=== PATIENT | female | born 1965 | race Caucasian/White ===

== ENCOUNTER 2016-08-23 17:16 | Inpatient (IN) | payer OTHER ==
[2016-08-23] MEDS ORDERED: HYDROmorphone 1 MG/ML SYRINGE IVP STA ×2 (17:39→19:15)
[2016-08-23] MEDS ORDERED: ONDANSETRON 4 MG/2 ML VIAL IVP STA (17:39)
[2016-08-23] MEDS ORDERED: SODIUM CHLORIDE 0.9% 1,000 ML IV ONE (17:39)
[2016-08-23] MEDS ORDERED: ONDANSETRON 4 MG/2 ML VIAL ONE (17:42)
[2016-08-23] MEDS ORDERED: HYDROmorphone 1 MG/ML SYRINGE ONE ×2 (17:42→19:46)
[2016-08-23 17:49] LABS: BASOPHILS # (AUTO) 0.2 10^3/uL (0.0-0.1); BASOPHILS % (AUTO) 1.3 %; EOSINOPHILS # (AUTO) 0.1 10^3/uL (0.0-0.7); EOSINOPHILS % (AUTO) 1.1 %; HCT - HEMATOCRIT 45.3 % (37.0-47.0); HGB - HEMOGLOBIN 14.9 g/dL (12.0-16.0); LYMPHOCYTES # (AUTO) 3.1 10^3/uL (1.5-3.5); LYMPHOCYTES % (AUTO) 26.7 %; MEAN CORPUSCULAR HEMOGLOBIN 30.2 pg (27.0-31.0); MEAN CORPUSCULAR VOLUME 91.7 fL (81.0-99.0); MEAN PLATELET VOLUME 9.8 fL (7.9-10.8); MONOCYTES # (AUTO) 0.6 10^3/uL (0.0-1.0); MONOCYTES % (AUTO) 5.4 %; NEUTROPHILS # (AUTO) 7.7 10^3/uL (1.5-6.6); NEUTROPHILS % (AUTO) 65.5 %; RED BLOOD COUNT 4.94 10^6/uL (4.20-5.40); RED CELL DISTRIBUTION WIDTH 13.5 % (12.0-15.0); UNCORRECTED WHITE BLOOD COUNT 11.7 x10^3/uL; WHITE BLOOD COUNT 11.7 x10^3/uL (4.8-10.8)
--- NOTE | 2016-08-23 17:52 | ED Physician Documentation ---
PD HPI ABD PAIN - Stated complaint Stated Complaint: ABD PX - Chief complaint Chief Complaint: Abd Pain - History obtained from History obtained from: Patient - History of Present Illness Timing - onset: How many days ago (2) Timing - duration: Days (2) Timing - details: Gradual onset Pain level max: 7 Pain level now: 7 Quality: Aching, Pain Location: RLQ Radiation: Other (nonradiating) Improved by: Laying still Worsened by: Moving, Palpation Associated symptoms: Nausea. No: Fever, Vomiting, Hematemesis, Diarrhea, Constipation, Melena, Hematochezia, Dysuria, Vaginal bleeding, Vaginal dc Similar symptoms before: Has not had sx before Recently seen: Clinic (sent from clinic for eval) Review of Systems Constitutional: denies: Fever, Chills Respiratory: denies: Cough GI: denies: Nausea, Vomiting, Diarrhea Skin: denies: Rash Musculoskeletal: denies: Neck pain, Back pain Neurologic: denies: Focal weakness, Numbness, Headache PD PAST MEDICAL HISTORY - Past Medical History Past Medical History: Yes Cardiovascular: Hypertension GI: GERD - Past Surgical History Past Surgical History: Yes General: 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: Hysterectomy, Oophrectomy - Present Medications Home Medications: Ambulatory Orders Medication Instructions Recorded Confirmed Esomeprazole Magnesium [Nexium] 40 mg PO DAILY 08/23/16 08/23/16 Meloxicam [Mobic] 7.5 mg PO PRN 08/23/16 Propranolol HCl [Inderal LA] 120 mg PO DAILY 08/23/16 08/23/16 - Allergies Allergies/Adverse Reactions: Allergies Allergy/AdvReac Type Severity Reaction Status Date / Time avocado Allergy Unknown Verified 08/23/16 20:07 midazolam Allergy Unknown Verified 08/23/16 17:35 - Living Situation Living Situation: reports: With family Living Arrangement: reports: At home PD ED PE NORMAL - Vitals Vital signs reviewed: Yes - General General: Alert and oriented X 3, No acute distress, Well developed/nourished - HEENT HEENT: Moist mucous membranes - Neck Neck: Supple, no meningeal sign - Cardiac Cardiac: RRR, Strong equal pulses - Respiratory Respiratory: No respiratory distress, Clear bilaterally - Abdomen Abdomen: Soft, Non distended, Other (Tender to palpation right lower quadrant at McBurney's point. Positive obturator and psoas signs. Negative Rovsing. Positive heeltap) - Back Back: No CVA TTP, No spinal TTP - Derm Derm: Warm and dry - Extremities Extremities: No edema - Neuro Neuro: Alert and oriented X 3 - Psych Psych: Normal mood, Normal affect Results - Vitals Vitals: Vital Signs - 24 hr 08/23/16 08/23/16 08/23/16 17:25 18:25 20:46 Temperature 36.5 C Heart Rate 78 67 64 Respiratory 18 18 18 Rate Blood Pressure 135/98 H 137/87 H 121/74 O2 Saturation 98 98 98 Oxygen O2 Source Room air - EKG (time done) 2036 Rate: Rate (enter#) (64) Rhythm: NSR [place]: Normal Intervals: Normal OR QRS: No: Normal (nonspecific IVCD) Ischemia: Normal ST segments Computer interpretation: Agree with computer - Labs Labs: Laboratory Tests 08/23/16 08/23/16 08/23/16 17:40 17:40 17:40 WBC 11.7 H RBC 4.94 Hgb 14.9 Hct 45.3 MCV 91.7 MCH 30.2 MCHC 33.0 RDW 13.5 Plt Count 206 MPV 9.8 Neut # 7.7 H Lymph # 3.1 [place] # 0.6 Eos # 0.1 Baso # 0.2 H Absolute Nucleated RBC 0.00 Nucleated RBCs 0.0 PT 11.5 INR 1.0 APTT 29.9 Sodium 137 Potassium 3.4 L Chloride 98 L Carbon Dioxide 28 Anion Gap 11.0 BUN 11 Creatinine 0.8 Estimated GFR (MDRD) 76 L Glucose 102 H Calcium 9.7 Total Bilirubin 0.7 AST 20 ALT 23 Alkaline Phosphatase 89 Total Protein 7.6 Albumin 4.5 Globulin 3.1 Albumin/Globulin Ratio 1.5 Lipase 18 L Blood Type Blood Type Recheck Antibody Screen 08/23/16 08/23/16 17:40 20:06 WBC RBC Hgb Hct MCV MCH MCHC RDW Plt Count MPV Neut # Lymph # [place] # Eos # Baso # Absolute Nucleated RBC Nucleated RBCs PT INR APTT Sodium Potassium Chloride Carbon Dioxide Anion Gap BUN Creatinine Estimated GFR (MDRD) Glucose Calcium Total Bilirubin AST ALT Alkaline Phosphatase Total Protein Albumin Globulin Albumin/Globulin Ratio Lipase Blood Type O POSITIVE Blood Type Recheck O POSITIVE Antibody Screen NEGATIVE - Rads (name of study) CT abd/pelvis Radiology: Prelim report reviewed, EMP read contemporaneously, See rad report ( acute uncomplicated appendicitis) PD MEDICAL DECISION MAKING - ED course Complexity details: reviewed results, re-evaluated patient, considered differential, d/w patient, d/w employee relations consultant ED course: Patient with an acute appendicitis. Started on Zosyn in the emergency department. Discussed the case with surgery on-call, Dr. Humphrey, who accepts the patient. Patient taken to the operating room for appendectomy. This document was made in part using voice recognition software. While efforts are made to proofread this document, sound alike and grammatical errors may occur. Departure - Departure Disposition: ED Transfer to [facility] Clinical Impression: Appendicitis Qualifiers: Appendicitis type: acute appendicitis Acute appendicitis type: with localized peritonitis Qualified Code(s): K35.3 - Acute appendicitis with localized peritonitis Condition: Good Discharge Date/Time: 08/23/16 21:21
[2016-08-23 18:04] LABS: ALBUMIN/GLOBULIN RATIO 1.5 (1.0-2.2); BILIRUBIN,TOTAL 0.7 mg/dL (0.2-1.0); CALCIUM 9.7 mg/dL (8.5-10.3); CREATININE 0.8 mg/dL (0.4-1.0); POTASSIUM 3.4 mmol/L (3.5-5.0); TOTAL PROTEIN 7.6 g/dL (6.7-8.2)
[2016-08-23] MEDS ORDERED: IOPAMIDOL-300 100 ML VIAL IVP ONE (18:43)
--- NOTE | 2016-08-23 19:10 | CT Preliminary Report ---
Exam: CT Abdomen/Pelvis W/ IMPRESSION: Acute, uncomplicated appendicitis. [facility] SITE ID: [id number]
[2016-08-23] MEDS ORDERED: PIPERACILLIN/TAZOBACTAM 3.375 GM in SODIUM CHLORIDE 0.9% MINIBAG 100 ML IV STA (19:12)
--- NOTE | 2016-08-23 19:12 | CT Report ---
EXAM: CT ABDOMEN AND PELVIS EXAM DATE: 08/23/2016 06:46 PM. CLINICAL HISTORY: RLQ abd pain x 2 days. COMPARISONS: None. TECHNIQUE: Routine helical CT imaging was performed through the abdomen and pelvis. IV contrast: 100 mL Isovue-300. Enteric contrast: No. Reconstructions: Coronal and sagittal. In accordance with CT protocol optimization, one or more of the following dose reduction techniques w ere utilized for this exam: automated exposure control, adjustment of mA and/or KV based on patient s ize, or use of iterative reconstructive technique. FINDINGS: Lung Bases: Unremarkable. Liver: Normal. No masses. Gallbladder/Bile Ducts: Unremarkable. Spleen: Normal. Pancreas: Normal. Adrenal Glands: Normal. Kidneys: Normal. No masses or hydronephrosis. Peritoneal Cavity/Bowel: Normal. No free fluid, free air or adenopathy. No masses or acute inflammato ry process. The appendix is slightly dilated to 8 mm. There is mural enhancement and periappendiceal stranding without evidence of abscess. Pelvic Organs: Normal. The bladder and visualized pelvic organs are within normal limits. Vasculature: No aneurysms or other significant abnormality. Bones: No significant abnormality. Other: None. IMPRESSION: Acute, uncomplicated appendicitis. [facility] Referring Provider Line: [phone] SITE ID: [id number]
--- NOTE | 2016-08-23 19:59 | HISTORY & PHYSICAL EXAMINATION ---
Chief Complaint - Chief Complaint Chief Complaint: Abdominal pain History of Present Illness - Admitted From Admitted From:: ED - History Obtained From Records Reviewed: Yes History obtained from: Patient Exam Limitations: None - History of Present Illness Pain/Problem Location Description: RLQ Severity: 6-12/21 Quality: Sharp Timing: Intermittent Duration: 2 Improved with: IV pain medication Worsened by: moving Associated Symptoms: Nausea HPI Comment/Other: 51 yo with hx of HTN & GERD female with 2 day history of right lower quadrant pain that didn't improve so she came to the ED. + Nausea. Ct scan identified acute appendicitis Review of Systems - Eyes Eyes: denies: Pain, Blurred vision - Ears, Nose & Throat Ears, Nose & Throat: denies: Ear pain, Tinnitus - Cardiovascular Cariovascular: denies: Irregular heart rate - Respiratory Respiratory: denies: Cough - Gastrointestinal Gastrointestinal: reports: Abdominal pain, Nausea - Genitourinary Genitourinary: denies: Dysuria, Hematuria - Musculoskeletal Musculoskeletal: denies: Muscle pain - Integumentary Integumentary: denies: Rash - Neurological Neurological: denies: General weakness - Psychiatric Psychiatric: denies: Depression - Endocrine Endocrine: denies: Polyuria - Hematologic/Lymphatic Hematologic/Lymphatic: denies: Anemia - All Other Systems All Other Systems: reports: Reviewed and negative History - Past Medical History Cardiovascular: reports: Hypertension Respiratory: reports: None Neuro: reports: None Endocrine/Autoimmune: reports: None GI: reports: GERD 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: reports: Ovarian cysts (s/p ANUPAMA BSO) HEENT: reports: None, Chronic vision loss (Glasses) Psych: reports: None Musculoskeletal: reports: None Derm: reports: None MRSA Hx?: No - Past Surgical History General: reports: Cholecystectomy /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 MANAGER: reports: Oophrectomy Meds/Allgy - Home Medications Home Medications: Ambulatory Orders Medication Instructions Recorded Confirmed Esomeprazole Magnesium [Nexium] 40 mg PO DAILY 08/23/16 08/23/16 Meloxicam [Mobic] 7.5 mg PO PRN 08/23/16 Propranolol HCl [Inderal LA] 120 mg PO DAILY 08/23/16 08/23/16 - Allergies Allergies/Adverse Reactions: Allergies Allergy/AdvReac Type Severity Reaction Status Date / Time avocado Allergy Unknown Verified 08/23/16 20:07 midazolam Allergy Unknown Verified 08/23/16 17:35 Exam - Vital Signs Reviewed Vital Signs: Yes Vital Signs: Vital Signs x48h Temp Pulse Resp BP Pulse Ox 08/23/16 18:25 67 18 137/87 H 98 08/23/16 17:25 36.5 C 78 18 135/98 H 98 - Physical Exam General Appearance: positive: Alert, Mild distress Eyes Bilateral: positive: PERRL, EOMI ENT: positive: No signs of dehydration Neck: positive: Trachea midline Respiratory: positive: Breath sounds nml Cardiovascular: positive: Regular rate & rhythm Peripheral Pulses: positive: 2+ Abdomen: positive: Tenderness (+BS, Soft, TTP RLQ, No rebound or guarding, negative rosving) Extremities: negative: Pedal edema, Lan's sign/cords Neurologic/Psychiatric: positive: Oriented x3, CN's nml (2-12) Conclusion/Plan - Problem List (1) Appendicitis Conclusion/Plan: 51 yo female with Hx of GERD & HTN now with acute appendicitis OR today for laparoscopic possibly open appendectomy NPO, IVF, Zosyn Qualifiers: Appendicitis type: acute appendicitis Acute appendicitis type: with localized peritonitis Qualified Code(s): K35.3 - Acute appendicitis with localized peritonitis - Lab Results Lab results reviewed: Yes Fish Bones: 08/23/16 17:40 08/23/16 17:40 - Diagnostic Imaging Results Diagnostic Imaging Results: positive: Read contemporaneously Diagnostic Imaging Results Comments: 08/23/16 CT ABD/P Acute non-perforated appendicitis Issues/Core Measures - Anticipated LOS Anticipated Stay Length: Less than 2 midnights - Issues Hospital Issues and Management Plan: Acute Appendicits Admit for OBs, OR today for Laparoscopic Appendectomy - DVT/VTE - Prophylaxis VTE/DVT Device ordered at admit?: Yes VTE/DVT Prophylaxis med ordered at admit?: Yes
[2016-08-23] MEDS ORDERED: LACTATED RINGERS 1,000 ML IV STA (20:01)
[2016-08-23 20:29] LABS: PT - PROTHROMBIN TIME 11.5 secs (9.9-12.6)
[2016-08-23 20:36] LABS: PARTIAL THROMBOPLASTIN TIME 29.9 secs (24.9-33.3)
[2016-08-23] MEDS ORDERED: LACTATED RINGERS 400 ML IV ONE (21:19)
[2016-08-23] MEDS ORDERED: ONDANSETRON 4 MG/2 ML VIAL IVP ONE (21:30)
[2016-08-23] MEDS ORDERED: KETOROLAC 30 MG/ML VIAL IVP ONE (21:30)
[2016-08-23] MEDS ORDERED: PROPOFOL 200 MG/20 ML VIAL IVP ONE (21:30)
[2016-08-23] MEDS ORDERED: GLYCOPYRROLATE 1 MG/5 ML VIAL IVP ONE (21:30)
[2016-08-23] MEDS ORDERED: NEOSTIGMINE 1 MG/1 ML 10 ML MDV IVP ONE (21:30)
[2016-08-23] MEDS ORDERED: SUCCINYLCHOLINE 200 MG/10 ML VIAL IVP ONE (21:30)
[2016-08-23] MEDS ORDERED: HYDROmorphone 1 MG/ML SYRINGE IVP ONE (21:30)
[2016-08-23] MEDS ORDERED: ROCURONIUM 50 MG/5 ML VIAL IVP ONE (21:30)
[2016-08-23] MEDS ORDERED: LIDOCAINE-MPF 2% 5 ML VIAL IM ONE (21:30)
[2016-08-23] MEDS ORDERED: DEXAMETHASONE 4 MG/ML VIAL IVP ONE (21:30)
[2016-08-23] MEDS ORDERED: ceFAZolin 1 GM VIAL IV ONE (21:30)
[2016-08-23] MEDS ORDERED: MIDAZOLAM 2 MG/2 ML VIAL IVP ONE (21:30)
[2016-08-23] MEDS ORDERED: fentaNYL 100 MCG/2 ML VIAL IVP ONE (21:30)
[2016-08-23] MEDS ORDERED: LIDOCAINE MPF 1%-EPI 1:200000 30 ML VIAL SUBQ ONE ×2 (21:39)
[2016-08-23] MEDS ORDERED: LACTATED RINGERS 1,000 ML IV ONE ×2 (21:57→23:17)
[2016-08-24] MEDS ORDERED: ACETAMINOPHEN 1,000 MG/100 ML 100 ML IV PRN (00:25)
[2016-08-24] MEDS ORDERED: ONDANSETRON 4 MG/2 ML VIAL IVP PRN (00:25)
[2016-08-24] MEDS ORDERED: MORPHINE PCA 50 MG IV PRN (00:25)
[2016-08-24] MEDS ORDERED: PHENOL THROAT SPRAY 177 ML MM PRN (00:25)
[2016-08-24] MEDS ORDERED: ONDANSETRON 4 MG/2 ML VIAL ONE (00:27)
[2016-08-24] MEDS: fentaNYL 100 MCG/2 ML VIAL ONE ×5 (00:34→01:08)
[2016-08-24] MEDS ORDERED: METOCLOPRAMIDE 10 MG/2 ML VIAL ONE (00:36)
--- NOTE | 2016-08-24 00:44 | OPERATIVE REPORT ---
Operative Report - General Procedure Date: 08/23/16 Planned Procedure: Laparoscopic possible open appendectomy Pre-Op Diagnosis: Acute appendicitis Post Op Diagnosis: Adhesive small bowel incarceration, Acute appendicitis - Procedure Note Primary Surgeon: Robbie Humphrey Anesthesia Provider: Maynor Smith CRNA Anesthesia Technique: General ET tube Pathology: Appendix Estimated Blood Loss (in cc): 5 Drain/Tube Type: positive: Daniel Whyte round drain Complications: None - Other Other Information/Narrative: Please see dictated report
[2016-08-24] MEDS ORDERED: fentaNYL 100 MCG/2 ML VIAL ONE (00:50)
[2016-08-24] MEDS: PIPERACILLIN/TAZOBACTAM 3.375 GM in SODIUM CHLORIDE 0.9% MINIBAG 100 ML IV SCH ×4 (02:19→19:08)
[2016-08-24] MEDS: LACTATED RINGERS 1,000 ML IV SCH ×2 (02:24→13:46)
[2016-08-24 05:33] LABS: BASOPHILS % (AUTO) 0.5 %; HCT - HEMATOCRIT 41.5 % (37.0-47.0); HGB - HEMOGLOBIN 13.7 g/dL (12.0-16.0); LYMPHOCYTES # (AUTO) 0.7 10^3/uL (1.5-3.5); LYMPHOCYTES % (AUTO) 6.8 %; MEAN CORPUSCULAR HEMOGLOBIN 30.1 pg (27.0-31.0); MEAN CORPUSCULAR HGB CONC 33.1 g/dL (32.0-36.0); MEAN CORPUSCULAR VOLUME 90.9 fL (81.0-99.0); MEAN PLATELET VOLUME 10.6 fL (7.9-10.8); MONOCYTES # (AUTO) 0.2 10^3/uL (0.0-1.0); MONOCYTES % (AUTO) 2.2 %; NEUTROPHILS # (AUTO) 9.6 10^3/uL (1.5-6.6); NEUTROPHILS % (AUTO) 90.5 %; NUCLEATED RED BLOOD CELLS AUTO 0.1 /100WBC; RED BLOOD COUNT 4.57 10^6/uL (4.20-5.40); RED CELL DISTRIBUTION WIDTH 13.4 % (12.0-15.0); UNCORRECTED WHITE BLOOD COUNT 10.6 x10^3/uL; WHITE BLOOD COUNT 10.6 x10^3/uL (4.8-10.8)
[2016-08-24] MEDS: SODIUM CHLORIDE FLUSH 0.9% 10 ML SYRINGE IVP SCH ×3 (05:38→19:08)
[2016-08-24 05:44] LABS: CALCIUM 8.8 mg/dL (8.5-10.3); CREATININE 0.8 mg/dL (0.4-1.0); POTASSIUM 4.2 mmol/L (3.5-5.0)
[2016-08-24] MEDS: PANTOPRAZOLE 40 MG TABLET PO SCH (06:32)
--- NOTE | 2016-08-24 07:17 | PROVIDER PROGRESS NOTE ---
Subjective - General Admit Date: 08/24/16 Procedure Date: 08/23/16 Post Op Days: 1 Procedure Performed: Extensive Lysis of adhesions, Laparoscopic appendectomy - Review of Systems Wound/Incisions: positive: Dressing dry and intact, No drainage Drain Type: GABRIEL round Drain Output Description: serosanguenous Approximate mls Output: 310 General: positive: No symptoms HEENT: positive: No symptoms Pulmonary: positive: No symptoms Cardiovascular: positive: No symptoms Gastrointestinal: positive: Abdominal pain (Post op appropriate) Genitourinary: positive: No symptoms Musculoskeletal: positive: No symptoms Skin: positive: No symptoms Psychiatric: positive: No symptoms All Other Systems: positive: Reviewed and negative - Other Other Information/Narrative: patient seen this am. Doing well. urinating, using IS. Not OOB yet. pain moderately controlled. Pt states pain 5/10. RN notes patient has been resting comfortably. No other events noted. Objective - Patient Data Vital Signs: Vital Signs x48h Temp Pulse Resp BP Pulse Ox 08/24/16 06:40 17 08/24/16 06:05 36.7 C 64 16 109/67 98 08/24/16 05:35 16 08/24/16 05:00 16 08/24/16 04:05 36.3 C L 78 18 136/90 H 97 08/24/16 04:00 17 08/24/16 03:05 36.4 C L 77 16 123/72 99 08/24/16 03:00 17 08/24/16 02:35 36.1 C L 72 16 117/76 99 08/24/16 02:05 36.3 C L 70 16 124/75 99 08/24/16 01:50 36.4 C L 79 16 125/77 100 08/24/16 01:35 36.6 C 83 18 130/76 98 08/24/16 01:20 36.9 C 69 18 119/77 100 08/24/16 01:09 99 08/24/16 01:04 99 08/24/16 00:59 99 08/24/16 00:55 36.3 C L 70 16 124/75 99 08/24/16 00:54 100 08/24/16 00:44 99 08/24/16 00:40 36.4 C L 79 16 125/77 100 08/24/16 00:39 100 08/24/16 00:34 100 08/24/16 00:29 100 Intake & Output: Intake and Output Totals x24h 08/22/16 08/23/16 08/24/16 23:59 23:59 23:59 Intake Total 558 Output Total 260 Balance 298 - Lab Results Lab Results: 08/24/16 05:23 08/24/16 05:23 Other Lab Results: Lab Results x24hrs 08/24/16 08/24/16 Range/Units 05:23 05:23 WBC 10.6 (4.8-10.8) x10^3/uL RBC 4.57 (4.20-5.40) 10^6/uL Hgb 13.7 (12.0-16.0) g/dL Hct 41.5 (37.0-47.0) % MCV 90.9 (81.0-99.0) fL MCH 30.1 (27.0-31.0) pg MCHC 33.1 (32.0-36.0) g/dL RDW 13.4 (12.0-15.0) % Plt Count 192 (130-450) 10^3/uL MPV 10.6 (7.9-10.8) fL Neut # 9.6 H (1.5-6.6) 10^3/uL Lymph # 0.7 L (1.5-3.5) 10^3/uL [place] # 0.2 (0.0-1.0) 10^3/uL Eos # 0.0 (0.0-0.7) 10^3/uL Baso # 0.0 (0.0-0.1) 10^3/uL Absolute Nucleated RBC 0.01 x10^3/uL Nucleated RBCs 0.1 /100WBC Sodium 139 (135-145) mmol/L Potassium 4.2 (3.5-5.0) mmol/L Chloride 105 (101-111) mmol/L Carbon Dioxide 26 (21-32) mmol/L Anion Gap 8.0 (6-13) BUN 10 (6-20) mg/dL Creatinine 0.8 (0.4-1.0) mg/dL Estimated GFR (MDRD) 76 L (>89) Glucose 150 H (70-100) mg/dL Calcium 8.8 (8.5-10.3) mg/dL - Current Medications Current Medications: Current Medications Generic Name Dose Route Start Last Admin Trade Name Freq PRN Reason Stop Dose Admin Lactated Ringer's 1,000 mls @ 100 mls/hr 08/24/16 01:00 08/24/16 02:24 Lr IV 100 mls/hr .Q10H DORIS Administration Piperacillin Sod/Tazobactam 100 mls @ 200 mls/hr 08/24/16 01:00 08/24/16 06:32 Sod 3.375 gm/ Sodium Chloride IV 200 mls/hr Q6H DORIS Administration Morphine Sulfate/Sodium Chloride 50 mg 08/24/16 00:25 08/24/16 02:19 Morphine [employer] (Use Member Of [employer] Order Set) IV 50 mg 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 MEDICINE TEACHER PRN Administration PAIN Protocol Pantoprazole Sodium 40 mg 08/24/16 07:00 08/24/16 06:32 Protonix PO 40 mg QDAC DORIS Administration Sodium Chloride 10 ml 08/24/16 06:00 08/24/16 05:38 Normal Saline Flush 0.9% IVP Not Given Q8HR DORIS - Physical Exam Wound/Incisions: positive: No drainage General Appearance: positive: No acute distress Eyes Bilateral: positive: EOMI ENT: positive: No signs of dehydration Neck: positive: Nml inspection Respiratory: positive: No respiratory distress, Breath sounds nml Cardiovascular: positive: Regular rate & rhythm Abdomen: positive: No distention (+BS hypoactive. TTP at surigical sites, No rebound or guarding GABRIEL drain with serosanguenous output) Neurologic/Psychiatric: positive: Oriented x3, CN's nml (2-12) Impression/Plan - Problem List Problem List: 51 yo female with HTN & GERD, s/p laparoscopic extensive lysis of adhesions and laparoscopic appendectomy POD#1 Ambulate today Pain control Continue IS Advance diet as tolerated- expect ileus Monitor I& o's continue ABx today
[2016-08-24 08:13] LABS: BILIRUBIN,URINE NEGATIVE (NEGATIVE); PH,URINE 6.5 PH (5.0-7.5)
[2016-08-24] MEDS ORDERED: PROPRANOLOL 40 MG TABLET PO SCH (09:00)
[2016-08-24] MEDS: NICOTINE 14 MG PATCH TOP SCH (09:22)
[2016-08-24] MEDS: KETOROLAC 30 MG/ML VIAL IVP PRN ×3 (10:26→21:44)
[2016-08-24] MEDS: METOCLOPRAMIDE 10 MG/2 ML VIAL IVP SCH ×3 (10:39→23:38)
[2016-08-24] MEDS: HEPARIN 5,000 UNIT/ML VIAL SUBQ SCH ×2 (11:39→23:38)
--- NOTE | 2016-08-24 12:53 | OPERATIVE REPORT ---
DATE OF SURGERY: 08/24/2016 00:00:00 PREOPERATIVE DIAGNOSIS: Acute appendicitis. PROCEDURE: Laparoscopic appendectomy, extensive laparoscopic lysis of adhesions over 1 hour between abdominal wall, bowel & omentum POSTOPERATIVE DIAGNOSES 1. Acute appendicitis. 2. Extensive adhesions of small bowel & omentum to abdominal wall . RAD[facility] JOURNALIST: Robbie Humphrey DO. ANESTHESIA: General by Maynor Smith CRNA. FINDINGS: Acute appendicitis without rupture, Extensive adhesions of small bowel & omentum to abdominal wall. SPECIMEN: Appendix. COMPLICATIONS: None. ESTIMATED BLOOD LOSS: 10 mL. URINE OUTPUT: 260 mL of clear urine. INTRAVENOUS FLUIDS: 1600 mL of LR. INDICATIONS: This 51-year-old female presented with right lower quadrant pain for 2 days' duration associated with nausea. She was afebrile with a leukocytosis of 11.7 thousand. Computed tomography scan was consistent with acute appendicitis. Laparoscopic possible open procedure was discussed with the patient. The risks and benefits including, but not limited to infection, bleeding, risk of bowel or other organ injury, risk of abscess, risk of fistula , anesthesia risks, skin infection, scar formation, and skin irregularities were discussed with the patient. The patient agreed to the procedure and signed consent. All questions were answered. DESCRIPTION OF PROCEDURE: The patient was taken to the operating room and placed in the supine position. General anesthesia was induced after SCDs were placed. A Mckeon catheter was placed. Arms were tucked. The patient had been given IV Zosyn in the ED and Ancef perioperatively. The patient was prepped and draped in the usual sterile fashion. A time-out was completed verifying the correct patient, procedure, site, position prior to start of procedure. Bupivacaine 0.5% with epinephrine was used supraumbilically for Veress needle entry, as well as all trocar sites. A #15 blade puncture was created through the skin. The Veress needle was passed through the abdominal wall. Proper position was confirmed by aspiration and saline meniscus test. A 5 mm Optiview trocar was placed umbilically under direct vision. A 5 mm trocar was placed in the left lower quadrant under direct vision. The abdomen and pelvis were scanned with no signs of injury from the Veress needle. A significant amount of lower abdominal midline adhesions were noted that traveled down to the previous hysterectomy midline scar without involving the bladder. Pictures were taken. The cecum appeared to lie lower than normal in the right lateral pelvis. A 12 mm trocar was placed under direct vision in the upper left quadrant. The adhesions contain mostly omentum,though some bowel was also tethered. Using careful blunt dissection, and with LigaSure, the tethered bowel was taken down and appeared viable without injury. Adhesiolysis took over 1 hour. Urine remained clear. No identifiable hernia was noted. Attention was turned to the appendix, which was adhesed to the right parietal peritoneum and appeared edematous, erythematous with some surrounding fluid and possibly exudate. A 5 mm trocar was now placed in the right lower quadrant under direct vision. The patient was then placed in Trendelenburg with left side down. The appendix base was clearly visualized while the tip and distal body were noted to be adhesed to the right lateral parietal peritoneum. The base of the appendix was grasped with a Corrigan and careful lateral dissection between the peritoneal wall and appendix was performed using blunt dissection and with LigaSure. The appendix was freed from the adhesion. The mesoappendix was the transected with ligasure, and the Appendix was transected with a single fire of a blue load stapler. The appendix was removed through the left upper quadrant port with an endocatch bag. The staple line was inspected with no signs of bleeding or leakage. The small bowel that was freed from adhesion as well as the adhesion sites of the abdominal wall were again inspected with no signs of bleeding or perforation. A 15-La[place] round GABRIEL drain was placed through the right lower port and placed in the pelvis and then secured to the skin with a silk suture. An Endoclose was used with 0 Vicryl to close the fascia of the 12 mm port under direct vision. The skin was then washed copiously and dried, and sterile lexie were used for skin closure of the 4 ports sites followed by gauze and Tegaderms. The appendix was examined on the back table and no appendicoliths were palpated and then sent to pathology. The patient tolerated the procedure well, was extubated, Mckeon removed, and taken to PACU for recovery. All counts were correct. JOB #: [id number] EXT JOB #:[id number]
[2016-08-24] MEDS ORDERED: LACTATED RINGERS 1,000 ML IV SCH ×2 (16:42→23:45)
[2016-08-24] MEDS ORDERED: SIMETHICONE CHEW 80 MG TABLET PO PRN (17:58)
[2016-08-24] MEDS ORDERED: D5.45NS W/20 MEQ KCL 1,000 ML IV SCH (19:00)
[2016-08-24] MEDS ORDERED: METOPROLOL 5 MG/5 ML VIAL IVP SCH (21:00)
--- NOTE | 2016-08-24 21:26 | PROVIDER PROGRESS NOTE ---
Subjective - General Admit Date: 08/24/16 Procedure Date: 08/23/16 Post Op Days: 1 Procedure Performed: Extensive Lysis of adhesions, Laparoscopic appendectomy - Review of Systems Wound/Incisions: positive: No drainage Drain Type: GABRIEL round Drain Output Description: blackish Approximate mls Output: 80 General: positive: No symptoms HEENT: positive: No symptoms Pulmonary: positive: No symptoms Cardiovascular: positive: No symptoms Gastrointestinal: positive: Abdominal pain (Post op appropriate) Genitourinary: positive: No symptoms Musculoskeletal: positive: No symptoms Skin: positive: No symptoms Psychiatric: positive: No symptoms All Other Systems: positive: Reviewed and negative - Other Other Information/Narrative: Called to floor due to GABRIEL with black output. Patient states she was feeling ok and pain was controlled until she walked around and then drank something. Patient has been urinating well, using IS and ambulating. She was tolerating clears. Objective - Patient Data Reviewed Vital Signs: Yes Vital Signs: Vital Signs x48h Temp Pulse Resp BP BP Pulse Ox 08/24/16 21:03 124/77 08/24/16 21:00 37 C 72 16 124/77 96 08/24/16 20:14 65 117/79 08/24/16 19:00 16 08/24/16 18:07 36 C L 59 L 16 161/65 H 98 08/24/16 15:00 16 Intake & Output: Intake and Output Totals x24h 08/22/16 08/23/16 08/24/16 23:59 23:59 23:59 Intake Total 2146 Output Total 1994 Balance 151 - Lab Results Lab Results: 08/24/16 05:23 08/24/16 05:23 Other Lab Results: Lab Results x24hrs 08/24/16 08/24/16 08/24/16 Range/Units 07:25 05:23 05:23 WBC 10.6 (4.8-10.8) x10^3/uL RBC 4.57 (4.20-5.40) 10^6/uL Hgb 13.7 (12.0-16.0) g/dL Hct 41.5 (37.0-47.0) % MCV 90.9 (81.0-99.0) fL MCH 30.1 (27.0-31.0) pg MCHC 33.1 (32.0-36.0) g/dL RDW 13.4 (12.0-15.0) % Plt Count 192 (130-450) 10^3/uL MPV 10.6 (7.9-10.8) fL Neut # 9.6 H (1.5-6.6) 10^3/uL Lymph # 0.7 L (1.5-3.5) 10^3/uL [place] # 0.2 (0.0-1.0) 10^3/uL Eos # 0.0 (0.0-0.7) 10^3/uL Baso # 0.0 (0.0-0.1) 10^3/uL Absolute Nucleated RBC 0.01 x10^3/uL Nucleated RBCs 0.1 /100WBC Sodium 139 (135-145) mmol/L Potassium 4.2 (3.5-5.0) mmol/L Chloride 105 (101-111) mmol/L Carbon Dioxide 26 (21-32) mmol/L Anion Gap 8.0 (6-13) BUN 10 (6-20) mg/dL Creatinine 0.8 (0.4-1.0) mg/dL Estimated GFR (MDRD) 76 L (>89) Glucose 150 H (70-100) mg/dL Calcium 8.8 (8.5-10.3) mg/dL Urine Color YELLOW Urine Clarity CLEAR (CLEAR) Urine pH 6.5 (5.0-7.5) PH Ur Specific [place] 1.010 (1.002-1.030) Urine Protein NEGATIVE (NEGATIVE) mg/dL Urine Glucose (UA) NEGATIVE (NEGATIVE) mg/dL Urine Ketones NEGATIVE (NEGATIVE) mg/dL Urine Occult Blood NEGATIVE (NEGATIVE) Urine Nitrite NEGATIVE (NEGATIVE) Urine Bilirubin NEGATIVE (NEGATIVE) Urine Urobilinogen 0.2 (NORMAL) (NORMAL) E.U./dL Ur Leukocyte Esterase NEGATIVE (NEGATIVE) Urine RBC 0-5 (0-5) /HPF Urine WBC 4-5 (0-5) /HPF Ur Squamous Epith Cells FEW Squamous (<= Few) Amorphous Sediment Rare /LPF Urine Bacteria None Seen (None Seen) /HPF - Current Medications Current Medications: Current Medications Generic Name Dose Route Start Last Admin Trade Name Freq PRN Reason Stop Dose Admin Heparin Sodium (Porcine) 5,000 unit 08/24/16 10:00 08/24/16 11:39 SUBQ 5,000 unit BID DORIS Administration Piperacillin Sod/Tazobactam 100 mls @ 200 mls/hr 08/24/16 01:00 08/24/16 19:08 Sod 3.375 gm/ Sodium Chloride IV 200 mls/hr Q6H DORIS Administration Potassium Chloride/Dextrose/Sod Cl 1,000 mls @ 100 mls/hr 08/24/16 19:00 19:09 D5.45ns W/20 Meq Kcl IV 100 mls/hr .Q10H DORIS Administration Ketorolac Tromethamine 30 mg 08/24/16 07:13 08/24/16 16:14 Toradol Inj IVP 08/29/16 07:12 30 mg Q6HR PRN Administration PAIN Metoclopramide HCl 5 mg 08/24/16 11:00 08/24/16 17:49 Reglan Inj IVP 08/26/16 10:59 5 mg Q6HR DORIS Administration Metoprolol Tartrate 5 mg 08/24/16 21:00 08/24/16 21:03 Lopressor Inj IVP 5 mg Q6H DORIS Administration Morphine Sulfate/Sodium Chloride 50 mg 08/24/16 00:25 08/24/16 02:19 Morphine Enterprise Cloud Architect (Use Enterprise Cloud Architect Order Set) IV 50 mg TOOL MAKER PRN Administration PAIN Protocol Nicotine 1 patch 08/24/16 09:00 08/24/16 09:22 Nicoderm TOP 1 patch DAILY DORIS Administration Pantoprazole Sodium 40 mg 08/24/16 07:00 08/24/16 06:32 Protonix PO 40 mg QDAC DORIS Administration Simethicone 80 mg 08/24/16 17:58 08/24/16 18:14 Mylicon PO 80 mg Q6HR PRN Administration Gas Sodium Chloride 10 ml 08/24/16 06:00 08/24/16 19:08 Normal Saline Flush 0.9% IVP 10 ml Q8HR DORIS Administration - Physical Exam Wound/Incisions: positive: Dressing dry and intact General Appearance: positive: No acute distress, Alert Eyes Bilateral: positive: EOMI ENT: positive: No signs of dehydration Neck: positive: No JVD Respiratory: positive: Breath sounds nml Cardiovascular: positive: Regular rate & rhythm Abdomen: positive: Tenderness (Hypoactive BS, soft, Diffusely tender to palpation greatest at surgical sites. No distention) Skin: positive: Warm, Dry Impression/Plan - Problem List Problem List: 51 yo female s/p appendectomy with extensive lysis of adhesions POD#1 with black GABRIEL drain output. Vital signs stable. Continue ABX Mckeon placement NPO Serial exams GABRIEL drain monitoring Continue all other medications Case discussed with senior surgeon who concurs with current management
[2016-08-25] MEDS: PIPERACILLIN/TAZOBACTAM 3.375 GM in SODIUM CHLORIDE 0.9% MINIBAG 100 ML IV SCH ×3 (00:36→16:36)
[2016-08-25 06:09] LABS: BASOPHILS % (AUTO) 0.3 %; EOSINOPHILS # (AUTO) 0.1 10^3/uL (0.0-0.7); EOSINOPHILS % (AUTO) 0.9 %; HCT - HEMATOCRIT 42.3 % (37.0-47.0); HGB - HEMOGLOBIN 14.1 g/dL (12.0-16.0); LYMPHOCYTES # (AUTO) 1.3 10^3/uL (1.5-3.5); MEAN CORPUSCULAR HEMOGLOBIN 30.7 pg (27.0-31.0); MEAN CORPUSCULAR HGB CONC 33.4 g/dL (32.0-36.0); MEAN PLATELET VOLUME 9.9 fL (7.9-10.8); MONOCYTES # (AUTO) 0.3 10^3/uL (0.0-1.0); MONOCYTES % (AUTO) 3.8 %; NEUTROPHILS # (AUTO) 7.3 10^3/uL (1.5-6.6); RED CELL DISTRIBUTION WIDTH 13.6 % (12.0-15.0); UNCORRECTED WHITE BLOOD COUNT 9.1 x10^3/uL; WHITE BLOOD COUNT 9.1 x10^3/uL (4.8-10.8)
[2016-08-25 06:20] LABS: ALBUMIN/GLOBULIN RATIO 1.3 (1.0-2.2); CALCIUM 8.3 mg/dL (8.5-10.3); CREATININE 0.7 mg/dL (0.4-1.0); POTASSIUM 3.9 mmol/L (3.5-5.0); TOTAL PROTEIN 5.4 g/dL (6.7-8.2)
[2016-08-25] MEDS: METOCLOPRAMIDE 10 MG/2 ML VIAL IVP SCH ×3 (06:20→18:31)
[2016-08-25] MEDS: PANTOPRAZOLE 40 MG TABLET PO SCH (06:20)
--- NOTE | 2016-08-25 08:22 | PROVIDER PROGRESS NOTE ---
Subjective - General Admit Date: 08/24/16 Procedure Date: 08/23/16 Post Op Days: 2 Procedure Performed: Extensive Lysis of adhesions, Laparoscopic appendectomy - Review of Systems Wound/Incisions: positive: Dressing dry and intact Drain Type: GABRIEL round Drain Output Description: light green Approximate mls Output: 80 General: positive: No symptoms HEENT: positive: No symptoms Pulmonary: positive: No symptoms Cardiovascular: positive: No symptoms Gastrointestinal: positive: Abdominal pain (Post op appropriate) Genitourinary: positive: No symptoms Musculoskeletal: positive: No symptoms Skin: positive: No symptoms Psychiatric: positive: No symptoms All Other Systems: positive: Reviewed and negative - Other Other Information/Narrative: Pt seen overnight with multiple exams. Abdominal pain decreased to minimum, GABRIEL drain output decreased. Objective - Patient Data Vital Signs: Vital Signs x48h Temp Pulse Resp BP Pulse Ox 08/25/16 08:07 38.0 C H 118 H 18 109/71 91 L 08/25/16 06:27 16 08/25/16 02:15 90 16 102/66 96 Intake & Output: Intake and Output Totals x24h 08/23/16 08/24/16 08/25/16 23:59 23:59 23:59 Intake Total 2941 870 Output Total 2220 385 Balance 721 485 - Lab Results Lab Results: 08/25/16 06:00 08/25/16 06:00 Other Lab Results: Lab Results x24hrs 08/25/16 08/25/16 08/25/16 Range/Units 06:00 06:00 06:00 WBC 9.1 (4.8-10.8) x10^3/uL RBC 4.60 (4.20-5.40) 10^6/uL Hgb 14.1 (12.0-16.0) g/dL Hct 42.3 (37.0-47.0) % MCV 92.0 (81.0-99.0) fL MCH 30.7 (27.0-31.0) pg MCHC 33.4 (32.0-36.0) g/dL RDW 13.6 (12.0-15.0) % Plt Count 164 (130-450) 10^3/uL MPV 9.9 (7.9-10.8) fL Neut # 7.3 H (1.5-6.6) 10^3/uL Lymph # 1.3 L (1.5-3.5) 10^3/uL [place] # 0.3 (0.0-1.0) 10^3/uL Eos # 0.1 (0.0-0.7) 10^3/uL Baso # 0.0 (0.0-0.1) 10^3/uL Absolute Nucleated RBC 0.00 x10^3/uL Nucleated RBCs 0.0 /100WBC Sodium 138 (135-145) mmol/L Potassium 3.9 (3.5-5.0) mmol/L Chloride 104 (101-111) mmol/L Carbon Dioxide 27 (21-32) mmol/L Anion Gap 7.0 (6-13) BUN 10 (6-20) mg/dL Creatinine 0.7 (0.4-1.0) mg/dL Estimated GFR (MDRD) 89 (>89) Glucose 114 H (70-100) mg/dL Lactic Acid 0.8 (0.5-2.2) mmol/L Calcium 8.3 L (8.5-10.3) mg/dL Total Bilirubin 1.0 (0.2-1.0) mg/dL AST 35 (10-42) IU/L ALT 46 (10-60) IU/L Alkaline Phosphatase 70 (42-121) IU/L Total Protein 5.4 L (6.7-8.2) g/dL Albumin 3.0 L (3.2-5.5) g/dL Globulin 2.4 (2.1-4.2) g/dL Albumin/Globulin Ratio 1.3 (1.0-2.2) Urine Color Urine Clarity (CLEAR) Urine pH (5.0-7.5) PH Ur Specific [place] (1.002-1.030) Urine Protein (NEGATIVE) mg/dL Urine Glucose (UA) (NEGATIVE) mg/dL Urine Ketones (NEGATIVE) mg/dL Urine Occult Blood (NEGATIVE) Urine Nitrite (NEGATIVE) Urine Bilirubin (NEGATIVE) Urine Urobilinogen (NORMAL) E.U./dL Ur Leukocyte Esterase (NEGATIVE) Urine RBC (0-5) /HPF Urine WBC (0-5) /HPF Ur Squamous Epith Cells (<= Few) Amorphous Sediment /LPF Urine Bacteria (None Seen) /HPF 08/24/16 Range/Units 07:25 WBC (4.8-10.8) x10^3/uL RBC (4.20-5.40) 10^6/uL Hgb (12.0-16.0) g/dL Hct (37.0-47.0) % MCV (81.0-99.0) fL MCH (27.0-31.0) pg MCHC (32.0-36.0) g/dL RDW (12.0-15.0) % Plt Count (130-450) 10^3/uL MPV (7.9-10.8) fL Neut # (1.5-6.6) 10^3/uL Lymph # (1.5-3.5) 10^3/uL [place] # (0.0-1.0) 10^3/uL Eos # (0.0-0.7) 10^3/uL Baso # (0.0-0.1) 10^3/uL Absolute Nucleated RBC x10^3/uL Nucleated RBCs /100WBC Sodium (135-145) mmol/L Potassium (3.5-5.0) mmol/L Chloride (101-111) mmol/L Carbon Dioxide (21-32) mmol/L Anion Gap (6-13) BUN (6-20) mg/dL Creatinine (0.4-1.0) mg/dL Estimated GFR (MDRD) (>89) Glucose (70-100) mg/dL Lactic Acid (0.5-2.2) mmol/L Calcium (8.5-10.3) mg/dL Total Bilirubin (0.2-1.0) mg/dL AST (10-42) IU/L ALT (10-60) IU/L Alkaline Phosphatase (42-121) IU/L Total Protein (6.7-8.2) g/dL Albumin (3.2-5.5) g/dL Globulin (2.1-4.2) g/dL Albumin/Globulin Ratio (1.0-2.2) Urine Color YELLOW Urine Clarity CLEAR (CLEAR) Urine pH 6.5 (5.0-7.5) PH Ur Specific [place] 1.010 (1.002-1.030) Urine Protein NEGATIVE (NEGATIVE) mg/dL Urine Glucose (UA) NEGATIVE (NEGATIVE) mg/dL Urine Ketones NEGATIVE (NEGATIVE) mg/dL Urine Occult Blood NEGATIVE (NEGATIVE) Urine Nitrite NEGATIVE (NEGATIVE) Urine Bilirubin NEGATIVE (NEGATIVE) Urine Urobilinogen 0.2 (NORMAL) (NORMAL) E.U./dL Ur Leukocyte Esterase NEGATIVE (NEGATIVE) Urine RBC 0-5 (0-5) /HPF Urine WBC 4-5 (0-5) /HPF Ur Squamous Epith Cells FEW Squamous (<= Few) Amorphous Sediment Rare /LPF Urine Bacteria None Seen (None Seen) /HPF - Current Medications Current Medications: Current Medications Generic Name Dose Route Start Last Admin Trade Name Freq PRN Reason Stop Dose Admin Heparin Sodium (Porcine) 5,000 unit 08/24/16 10:00 08/24/16 23:38 SUBQ 5,000 unit BID DORIS Administration Piperacillin Sod/Tazobactam 100 mls @ 200 mls/hr 08/24/16 01:00 08/25/16 00:36 Sod 3.375 gm/ Sodium Chloride IV 200 mls/hr Q6H DORIS Administration Lactated Ringer's 1,000 mls @ 125 mls/hr 08/24/16 23:45 08/25/16 00:36 Lr IV 125 mls/hr .Q8H DORIS Administration Ketorolac Tromethamine 30 mg 08/24/16 07:13 08/24/16 21:44 Toradol Inj IVP 08/29/16 07:12 30 mg Q6HR PRN Administration PAIN Metoclopramide HCl 5 mg 08/24/16 11:00 08/25/16 06:20 Reglan Inj IVP 08/26/16 10:59 5 mg Q6HR DORIS Administration Morphine Sulfate/Sodium Chloride 50 mg 08/24/16 00:25 08/24/16 02:19 Morphine Machine Sweeper Brush Maker (Use Machine Sweeper Brush Maker Order Set) IV 50 mg CHARTER BOAT CAPTAIN PRN Administration PAIN Protocol Nicotine 1 patch 08/24/16 09:00 08/24/16 09:22 Nicoderm TOP 1 patch DAILY DORIS Administration Pantoprazole Sodium 40 mg 08/24/16 07:00 08/25/16 06:20 Protonix PO 40 mg QDAC DORIS Administration Simethicone 80 mg 08/24/16 17:58 08/24/16 18:14 Mylicon PO 80 mg Q6HR PRN Administration Gas Sodium Chloride 10 ml 08/24/16 06:00 08/24/16 19:08 Normal Saline Flush 0.9% IVP 10 ml Q8HR DORIS Administration - Physical Exam Wound/Incisions: positive: Healing well General Appearance: positive: No acute distress Eyes Bilateral: positive: EOMI Neck: positive: No JVD Respiratory: positive: No respiratory distress Cardiovascular: positive: Regular rate & rhythm Abdomen: positive: Tenderness (+Bs, soft TTP diffusely, ND, No rebound or guarding) Skin: positive: Warm Neurologic/Psychiatric: positive: Oriented x3, CN's nml (2-12) Impression/Plan - Problem List Problem List: 51 yo Female s/p Laparoscopic appendectomy with Lysis of adhesions POD#2, with questionable GABRIEL drainage Enterotomy suspected - OR today for evaluation. Continue NPO, IVF, ABX
[2016-08-25] MEDS: SODIUM CHLORIDE FLUSH 0.9% 10 ML SYRINGE IVP SCH ×3 (08:28→20:45)
[2016-08-25] MEDS: ACETAMINOPHEN 1,000 MG/100 ML 100 ML IV SCH ×3 (09:38→20:32)
[2016-08-25] MEDS: LACTATED RINGERS 1,000 ML IV SCH ×3 (09:38→18:43)
[2016-08-25] MEDS: NICOTINE 14 MG PATCH TOP SCH (09:42)
[2016-08-25] MEDS ORDERED: LACTATED RINGERS 1,000 ML IV ONE ×2 (12:34→14:06)
[2016-08-25] MEDS ORDERED: ROCURONIUM 50 MG/5 ML VIAL IVP ONE (12:40)
[2016-08-25] MEDS ORDERED: MIDAZOLAM 2 MG/2 ML VIAL IVP ONE (12:40)
[2016-08-25] MEDS ORDERED: GLYCOPYRROLATE 1 MG/5 ML VIAL IVP ONE (12:40)
[2016-08-25] MEDS ORDERED: ONDANSETRON 4 MG/2 ML VIAL IVP ONE (12:40)
[2016-08-25] MEDS ORDERED: LIDOCAINE-MPF 2% 5 ML VIAL IM ONE (12:40)
[2016-08-25] MEDS ORDERED: PROPOFOL 200 MG/20 ML VIAL IVP ONE (12:40)
[2016-08-25] MEDS ORDERED: PHENYLEPHRINE 50 MG/5 ML VIAL IV ONE (12:40)
[2016-08-25] MEDS ORDERED: NEOSTIGMINE 1 MG/1 ML 10 ML MDV IVP ONE (12:40)
[2016-08-25] MEDS ORDERED: ceFAZolin 1 GM VIAL IV ONE (12:40)
[2016-08-25] MEDS ORDERED: SUCCINYLCHOLINE 200 MG/10 ML VIAL IVP ONE (12:40)
[2016-08-25] MEDS ORDERED: ROPIVACAINE 0.5% PF 20 ML AMPULE EP ONE (12:40)
[2016-08-25] MEDS ORDERED: DEXAMETHASONE 4 MG/ML VIAL IVP ONE (12:40)
[2016-08-25] MEDS ORDERED: fentaNYL 100 MCG/2 ML VIAL IVP ONE (12:40)
[2016-08-25] MEDS ORDERED: fent/BUPIV 2 MCG/0.125% 250 ML EP ONE (13:34)
[2016-08-25] MEDS ORDERED: BENZOCAINE/MENTHOL LOZENGE MM PRN (15:31)
--- NOTE | 2016-08-25 15:36 | OPERATIVE REPORT ---
Operative Report - General Admit Date: 08/24/16 Procedure Date: 08/25/16 Planned Procedure: Laparoscopy, possible ex lap, possible bowel resection, possible ostomy Pre-Op Diagnosis: small bowel tear Post Op Diagnosis: same - Procedure Note Primary Surgeon: Dr. Robbie Humphrey DO Secondary Surgeon: Dr. Josue SANDERS Anesthesia Provider: Paddy London CRNA Anesthesia Technique: Epidural, General ET tube Pathology: Small bowel with small perforation/ tear Estimated Blood Loss (in cc): 10 Drain/Tube Type: positive: Daniel Whyte round drain (#15) - Other Other Information/Narrative: Please see dictated report
[2016-08-25] MEDS: ERTAPENEM 1 GM in SODIUM CHLORIDE 0.9% MINIBAG 100 ML IV SCH (16:54)
[2016-08-25] MEDS ORDERED: NALBUPHINE 20 MG/ML AMP IVP PRN (16:56)
[2016-08-25] MEDS ORDERED: METOCLOPRAMIDE 10 MG/2 ML VIAL IVP PRN (16:56)
[2016-08-25] MEDS ORDERED: ONDANSETRON 4 MG/2 ML VIAL IVP PRN (16:56)
[2016-08-25] MEDS: PANTOPRAZOLE 40 MG VIAL IVP SCH (18:42)
[2016-08-25] MEDS: SODIUM CHLORIDE FLUSH 0.9% 10 ML SYRINGE IVP PRN (18:43)
[2016-08-25] MEDS: HEPARIN 5,000 UNIT/ML VIAL SUBQ SCH (20:32)
--- NOTE | 2016-08-25 21:42 | PROVIDER PROGRESS NOTE ---
Subjective - General Admit Date: 08/24/16 Procedure Date: 08/25/16 Post Op Days: 0 Procedure Performed: Laparoscopy, segmental bowel resection POD#0 LAP APPY GABRIEL POD#2 - Review of Systems Wound/Incisions: positive: Dressing dry and intact Drain Type: GABRIEL round Drain Output Description: serousanguenous Approximate mls Output: 115 General: positive: No symptoms HEENT: positive: No symptoms Pulmonary: positive: No symptoms Cardiovascular: positive: No symptoms Gastrointestinal: positive: Abdominal pain (Post op appropriate) Genitourinary: positive: No symptoms Musculoskeletal: positive: No symptoms Skin: positive: No symptoms Psychiatric: positive: No symptoms All Other Systems: positive: Reviewed and negative - Other Other Information/Narrative: Patient seen bedside, resting comfortably, states pain is around a 3 to 4. Using IS, good urine output. No issues reported Objective - Patient Data Reviewed Vital Signs: Yes Vital Signs: Vital Signs x48h Temp Pulse Resp BP Pulse Ox 08/25/16 16:50 36.6 C 91 16 120/83 H 99 08/25/16 16:40 16 08/25/16 16:20 37.4 C 95 16 124/85 H 99 08/25/16 15:50 94 08/25/16 15:40 94 08/25/16 15:30 96 08/25/16 15:25 96 08/25/16 15:20 100 08/25/16 15:15 100 Intake & Output: Intake and Output Totals x24h 08/23/16 08/24/16 08/25/16 23:59 23:59 23:59 Intake Total 2941 870 Output Total 2220 890 Balance 721 -20 - Lab Results Lab Results: 08/25/16 06:00 08/25/16 06:00 Other Lab Results: Lab Results x24hrs 08/25/16 08/25/16 08/25/16 Range/Units 06:00 06:00 06:00 WBC 9.1 (4.8-10.8) x10^3/uL RBC 4.60 (4.20-5.40) 10^6/uL Hgb 14.1 (12.0-16.0) g/dL Hct 42.3 (37.0-47.0) % MCV 92.0 (81.0-99.0) fL MCH 30.7 (27.0-31.0) pg MCHC 33.4 (32.0-36.0) g/dL RDW 13.6 (12.0-15.0) % Plt Count 164 (130-450) 10^3/uL MPV 9.9 (7.9-10.8) fL Neut # 7.3 H (1.5-6.6) 10^3/uL Lymph # 1.3 L (1.5-3.5) 10^3/uL [place] # 0.3 (0.0-1.0) 10^3/uL Eos # 0.1 (0.0-0.7) 10^3/uL Baso # 0.0 (0.0-0.1) 10^3/uL Absolute Nucleated RBC 0.00 x10^3/uL Nucleated RBCs 0.0 /100WBC Sodium 138 (135-145) mmol/L Potassium 3.9 (3.5-5.0) mmol/L Chloride 104 (101-111) mmol/L Carbon Dioxide 27 (21-32) mmol/L Anion Gap 7.0 (6-13) BUN 10 (6-20) mg/dL Creatinine 0.7 (0.4-1.0) mg/dL Estimated GFR (MDRD) 89 (>89) Glucose 114 H (70-100) mg/dL Lactic Acid 0.8 (0.5-2.2) mmol/L Calcium 8.3 L (8.5-10.3) mg/dL Total Bilirubin 1.0 (0.2-1.0) mg/dL AST 35 (10-42) IU/L ALT 46 (10-60) IU/L Alkaline Phosphatase 70 (42-121) IU/L Total Protein 5.4 L (6.7-8.2) g/dL Albumin 3.0 L (3.2-5.5) g/dL Globulin 2.4 (2.1-4.2) g/dL Albumin/Globulin Ratio 1.3 (1.0-2.2) - Current Medications Current Medications: Current Medications Generic Name Dose Route Start Last Admin Trade Name Freq PRN Reason Stop Dose Admin Heparin Sodium (Porcine) 5,000 unit 08/25/16 21:00 08/25/16 20:32 SUBQ 5,000 unit BID DORIS Administration Acetaminophen 100 mls @ 400 mls/hr 08/25/16 09:00 08/25/16 20:32 Ofirmev IV 400 mls/hr Q6H DORIS Administration Ertapenem 1 gm/ Sodium 100 mls @ 200 mls/hr 08/25/16 16:00 08/25/16 16:54 Chloride IV 200 mls/hr DAILY DORIS Administration Lactated Ringer's 1,000 mls @ 125 mls/hr 08/25/16 18:30 08/25/16 18:43 Lr IV 125 mls/hr .Q8H DORIS Administration Metoclopramide HCl 5 mg 08/24/16 11:00 08/25/16 18:31 Reglan Inj IVP 08/26/16 10:59 Not Given Q6HR DORIS Nicotine 1 patch 08/24/16 09:00 08/25/16 09:42 Nicoderm TOP 1 patch DAILY DORIS Administration Pantoprazole Sodium 40 mg 08/25/16 18:00 08/25/16 18:42 Protonix IVP 40 mg QDAC DORIS Administration Sodium Chloride 10 ml 08/24/16 00:25 08/25/16 18:43 Normal Saline Flush 0.9% IVP 20 ml PRN PRN Administration NEEDED PER PROVIDER ORDERS Sodium Chloride 10 ml 08/24/16 06:00 08/25/16 20:45 Normal Saline Flush 0.9% IVP Not Given Q8HR DORIS Throat Lozenges 1 lozenge 08/25/16 15:31 08/25/16 18:42 Cepacol MM 1 lozenge Q2HR PRN Administration Mouth Sore Pain - Physical Exam Wound/Incisions: positive: Dressing dry and intact General Appearance: positive: No acute distress, Alert Eyes Bilateral: positive: EOMI ENT: positive: No signs of dehydration Neck: positive: Trachea midline Respiratory: positive: Breath sounds nml Cardiovascular: positive: Regular rate & rhythm (Hypoactive BS, mild tenderness to palpation, no distention) Impression/Plan - Problem List Problem List: 51 yo female s/p appendectomy & lysis of adhesions POD#2, s/p laparoscopy with segmental bowel resection POD#0 Will continue current management with: NPO IVF Ertapenem NG tube to LWS Mckeon Epidural SCD, HSQ Encourage IS use Protonix Nicotine patch
[2016-08-25] MEDS: KETOROLAC 30 MG/ML VIAL IVP PRN (22:48)
[2016-08-26] MEDS: LACTATED RINGERS 1,000 ML IV SCH (01:24)
[2016-08-26] MEDS: ACETAMINOPHEN 1,000 MG/100 ML 100 ML IV SCH ×4 (02:23→21:23)
--- NOTE | 2016-08-26 02:23 | OPERATIVE REPORT ---
DATE OF SURGERY: 08/25/2016 00:00:00 PREOPERATIVE DIAGNOSIS: Suspected bowel leak. POSTOPERATIVE DIAGNOSIS: Bowel leak. NAME OF PROCEDURE: Laparoscopy, possible exploratory laparotomy, possible bowel resection, possible ostomy placement. SURGEON: Robbie Humphrey DO. FREIGHT SORTER: Zuleima Salas MD. ANESTHESIA: General by Ron London CRNA, epidural. FINDINGS: Small bowel leak. SPECIMEN: Small bowel segment. COMPLICATIONS: None. ESTIMATED BLOOD LOSS: 10 mL. URINE OUTPUT: 360 mL of clear urine. INTRAVENOUS FLUIDS: 1700 mL. INDICATIONS: This 51-year-old female recently underwent a laparoscopic appendectomy with extensive lysis of adhesions using sharp and blunt dissection and occasional LigaSure. Postoperatively, although vitals were stable, the GABRIEL drain had increased output and a bowel leak was suspected, so laparoscopy, possible exploratory laparotomy was planned. The options were discussed with the patient and , and in layman's terms the risks and benefits of the procedure including, but not limited to infection, bleeding risk of bowel or other organ injury, risk of need for bowel resection, risk of possible ostomy placement, risk of abscess, risk of fistula, anesthesia risks, skin infections, scar formation, and skin irregularities. The patient agreed to the procedure and signed consent. All questions were answered. DESCRIPTION OF PROCEDURE: The patient was taken to the operating room and placed in the supine position. After an epidural catheter was placed by Anesthesia, general anesthesia was induced after the SCDs were placed. A Mckeon catheter was kept in place. The left arm was tucked. The patient had been given IV Zosyn earlier in the day and Ancef perioperatively. The patient was prepped and draped in the usual sterile fashion. A time-out was completed verifying correct patient, procedure site, position prior to start of procedure. Abdominal compartment entry was performed using the Luther technique supraumbilically with a 12 mm Luther. A 5 mm trocar was placed in the left lower quadrant, as well as a 5 mm in the right lower quadrant and a 12 mm in the left upper quadrant, all under direct vision. The abdomen and pelvis were scanned with no signs of injury from entry or the trocars. The bowel was ran & inspected from the ileocecal valve to the ligament of Treitz. A distal small bowel leak was noted. A midline incision was made infraumbilically with a #10 blade scalpel, and subcutaneous tissues were with electrocautery down to the anterior abdominal fascia. Once divided, the intraabdominal cavity was accessed, the bowel was then protected and the rest of the incision site was opened. The bowel was again inspected from the ileocecal valve to the ligament of Treitz with no other leaks noted. The NG tube was confirmed to be in the stomach. Attention was turned to the small segment of bowel with a leak, and it was resected and a [id number] anastomosis was created and completed with a linear stapler. Lembert silk sutures were placed along the anastomosis stapled end. The mesentery defect was closed with Vicryl suture. The anastomosis was tested, and showed patency with no signs of leak. Hemostasis was maintained. The abdominal compartment was copiously irrigated with warm saline and suctioned. A 15 Hungarian GABRIEL drain was placed through the lower right trocar site and sutured in place. The abdominal wall was then reapproximated paying careful attention to close the fascia layer using 2 running looped PDS sutures meeting in the middle with good approximation of both the abdominal fascia. Additional sterile saline was used to irrigate the subcutaneous fat and then the skin was loosely approximated with sequential sterile lexie and light iodoform packing, followed by sterile dressing. The patient tolerated the procedure well, was extubated and taken to PACU for recovery. All counts were correct. JOB #: [id number] EXT JOB #:[id number]
[2016-08-26] MEDS: SODIUM CHLORIDE FLUSH 0.9% 10 ML SYRINGE IVP SCH ×3 (06:15→21:27)
[2016-08-26] MEDS: PANTOPRAZOLE 40 MG VIAL IVP SCH (06:15)
[2016-08-26 06:20] LABS: BASOPHILS % (AUTO) 0.4 %; EOSINOPHILS # (AUTO) 0.2 10^3/uL (0.0-0.7); EOSINOPHILS % (AUTO) 1.7 %; HCT - HEMATOCRIT 36.3 % (37.0-47.0); HGB - HEMOGLOBIN 11.9 g/dL (12.0-16.0); LYMPHOCYTES # (AUTO) 1.1 10^3/uL (1.5-3.5); LYMPHOCYTES % (AUTO) 10.9 %; MEAN CORPUSCULAR HEMOGLOBIN 30.6 pg (27.0-31.0); MEAN CORPUSCULAR HGB CONC 32.9 g/dL (32.0-36.0); MEAN PLATELET VOLUME 10.6 fL (7.9-10.8); MONOCYTES # (AUTO) 0.5 10^3/uL (0.0-1.0); MONOCYTES % (AUTO) 5.1 %; NEUTROPHILS % (AUTO) 81.9 %; RED CELL DISTRIBUTION WIDTH 13.5 % (12.0-15.0); UNCORRECTED WHITE BLOOD COUNT 9.8 x10^3/uL; WHITE BLOOD COUNT 9.8 x10^3/uL (4.8-10.8)
[2016-08-26 06:34] LABS: ALBUMIN/GLOBULIN RATIO 0.9 (1.0-2.2); BILIRUBIN,TOTAL 0.8 mg/dL (0.2-1.0); CALCIUM 8.4 mg/dL (8.5-10.3); CREATININE 0.7 mg/dL (0.4-1.0); TOTAL PROTEIN 4.9 g/dL (6.7-8.2)
[2016-08-26] MEDS: HEPARIN 5,000 UNIT/ML VIAL SUBQ SCH ×2 (08:59→21:20)
[2016-08-26] MEDS: fent/BUPIV 2 MCG/0.125% 250 ML EP PRN (08:59)
[2016-08-26] MEDS: ERTAPENEM 1 GM in SODIUM CHLORIDE 0.9% MINIBAG 100 ML IV SCH (09:02)
[2016-08-26] MEDS: NICOTINE 14 MG PATCH TOP SCH (09:03)
[2016-08-26] MEDS: KETOROLAC 30 MG/ML VIAL IVP PRN ×2 (09:06→18:37)
--- NOTE | 2016-08-26 09:47 | PROVIDER PROGRESS NOTE ---
Subjective - General Admit Date: 08/24/16 Procedure Date: 08/25/16 Post Op Days: 1 Procedure Performed: Laparoscopy, segmental bowel resection POD#1 LAP APPY GABRIEL POD#3 - Review of Systems Wound/Incisions: positive: Dressing dry and intact Drain Type: GABRIEL round Drain Output Description: serousanguenous Approximate mls Output: 78 General: positive: No symptoms HEENT: positive: No symptoms Pulmonary: positive: No symptoms Cardiovascular: positive: No symptoms Gastrointestinal: positive: Abdominal pain (Post op appropriate) Genitourinary: positive: No symptoms Musculoskeletal: positive: No symptoms Skin: positive: No symptoms Psychiatric: positive: No symptoms All Other Systems: positive: Reviewed and negative - Other Other Information/Narrative: Patient seen this am. States pain has been around a 1 out of 10. Using IS, ambulating. NGT with minimal output states she passed some flatus. No issues reported by RN Objective - Patient Data Reviewed Vital Signs: Yes Vital Signs: Vital Signs x48h Temp Pulse Resp BP Pulse Ox 08/26/16 08:44 36.7 C 90 18 122/78 100 08/26/16 05:20 36.4 C L 76 76 H 114/73 100 Intake & Output: Intake and Output Totals x24h 08/24/16 08/25/16 08/26/16 23:59 23:59 23:59 Intake Total 2941 1704 1327 Output Total 2220 890 878 Balance 721 814 449 - Lab Results Lab Results: 08/26/16 05:12 08/26/16 05:12 Other Lab Results: Lab Results x24hrs 08/26/16 08/26/16 Range/Units 05:12 05:12 WBC 9.8 (4.8-10.8) x10^3/uL RBC 3.90 L (4.20-5.40) 10^6/uL Hgb 11.9 L (12.0-16.0) g/dL Hct 36.3 L (37.0-47.0) % MCV 93.0 (81.0-99.0) fL MCH 30.6 (27.0-31.0) pg MCHC 32.9 (32.0-36.0) g/dL RDW 13.5 (12.0-15.0) % Plt Count 161 (130-450) 10^3/uL MPV 10.6 (7.9-10.8) fL Neut # 8.0 H (1.5-6.6) 10^3/uL Lymph # 1.1 L (1.5-3.5) 10^3/uL [place] # 0.5 (0.0-1.0) 10^3/uL Eos # 0.2 (0.0-0.7) 10^3/uL Baso # 0.0 (0.0-0.1) 10^3/uL Absolute Nucleated RBC 0.00 x10^3/uL Nucleated RBCs 0.0 /100WBC Sodium 140 (135-145) mmol/L Potassium 4.0 (3.5-5.0) mmol/L Chloride 105 (101-111) mmol/L Carbon Dioxide 28 (21-32) mmol/L Anion Gap 7.0 (6-13) BUN 9 (6-20) mg/dL Creatinine 0.7 (0.4-1.0) mg/dL Estimated GFR (MDRD) 89 (>89) Glucose 102 H (70-100) mg/dL Calcium 8.4 L (8.5-10.3) mg/dL Total Bilirubin 0.8 (0.2-1.0) mg/dL AST 25 (10-42) IU/L ALT 28 (10-60) IU/L Alkaline Phosphatase 58 (42-121) IU/L Total Protein 4.9 L (6.7-8.2) g/dL Albumin 2.3 L (3.2-5.5) g/dL Globulin 2.6 (2.1-4.2) g/dL Albumin/Globulin Ratio 0.9 L (1.0-2.2) - Current Medications Current Medications: Current Medications Generic Name Dose Route Start Last Admin Trade Name Freq PRN Reason Stop Dose Admin Heparin Sodium (Porcine) 5,000 unit 08/25/16 21:00 08/26/16 08:59 SUBQ 5,000 unit BID DORIS Administration Acetaminophen 100 mls @ 400 mls/hr 08/25/16 09:00 08/26/16 07:58 Ofirmev IV 400 mls/hr Q6H DORIS Administration Ertapenem 1 gm/ Sodium 100 mls @ 200 mls/hr 08/25/16 16:00 08/26/16 09:02 Chloride IV 200 mls/hr DAILY DORIS Administration Fentanyl/Bupivacaine/Sodium Chlor 250 mls @ 8 mls/hr 08/25/16 17:04 08/26/16 08 :59 Fent/Bupiv 2 Mcg/0.125% EP 8 mls/hr .[id number] PRN Administration PAIN Protocol Lactated Ringer's 1,000 mls @ 125 mls/hr 08/25/16 18:30 08/26/16 01:24 Lr IV 125 mls/hr .Q8H DORIS Administration Ketorolac Tromethamine 30 mg 08/25/16 22:26 08/26/16 09:06 Toradol Inj IVP 08/28/16 22:25 30 mg Q6HR PRN Administration PAIN Nicotine 1 patch 08/24/16 09:00 08/26/16 09:03 Nicoderm TOP 1 patch DAILY DORIS Administration Pantoprazole Sodium 40 mg 08/25/16 18:00 08/26/16 06:15 Protonix IVP 40 mg QDAC DORIS Administration Phenol/Menthol 1 sprays 08/24/16 00:25 08/25/16 22:03 Chloraseptic MM 1 sprays Q2HR PRN Administration Throat Pain Sodium Chloride 10 ml 08/24/16 00:25 08/25/16 18:43 Normal Saline Flush 0.9% IVP 20 ml PRN PRN Administration NEEDED PER PROVIDER ORDERS Sodium Chloride 10 ml 08/24/16 06:00 08/26/16 06:15 Normal Saline Flush 0.9% IVP 10 ml Q8HR DORIS Administration Throat Lozenges 1 lozenge 08/25/16 15:31 08/25/16 18:42 Cepacol MM 1 lozenge Q2HR PRN Administration Mouth Sore Pain - Physical Exam Wound/Incisions: positive: Dressing dry and intact General Appearance: positive: No acute distress, Alert Eyes Bilateral: positive: EOMI ENT: positive: No signs of dehydration Respiratory: positive: Chest non-tender Cardiovascular: positive: Regular rate & rhythm Abdomen: positive: No distention (Hypoactive bs, ND, TTP post op appropriate, GABRIEL drain in place.) Extremities: negative: Calf tenderness, Lan's sign/cords Neurologic/Psychiatric: positive: Oriented x3, CN's nml (2-12) Impression/Plan - Problem List Problem List: 51 yo female s/p Laparoscopic appendectomy with extensive lysis of adhesions POD #3, Laparoscopy with segmental bowel resection POD#1 OOB to chair, Ambulate TID Continue ABX, NPO , NGT & peralta Conitunue epidural Continue SQH & SCDs Continue protonix Will start maintenance fluids Will continue all other medications
[2016-08-26] MEDS: D5.45NS W/20 MEQ KCL 1,000 ML IV SCH ×2 (10:17→18:37)
[2016-08-26] MEDS: SODIUM CHLORIDE FLUSH 0.9% 10 ML SYRINGE IVP PRN (18:37)
[2016-08-27] MEDS: ACETAMINOPHEN 1,000 MG/100 ML 100 ML IV SCH ×3 (02:24→14:14)
[2016-08-27] MEDS: fent/BUPIV 2 MCG/0.125% 250 ML EP PRN (03:39)
[2016-08-27] MEDS: D5.45NS W/20 MEQ KCL 1,000 ML IV SCH ×2 (04:24→14:19)
[2016-08-27 06:18] LABS: BASOPHILS % (AUTO) 0.2 %; EOSINOPHILS # (AUTO) 0.4 10^3/uL (0.0-0.7); EOSINOPHILS % (AUTO) 3.1 %; HCT - HEMATOCRIT 34.5 % (37.0-47.0); HGB - HEMOGLOBIN 11.5 g/dL (12.0-16.0); LYMPHOCYTES # (AUTO) 0.6 10^3/uL (1.5-3.5); LYMPHOCYTES % (AUTO) 5.3 %; MEAN CORPUSCULAR HEMOGLOBIN 30.2 pg (27.0-31.0); MEAN CORPUSCULAR HGB CONC 33.3 g/dL (32.0-36.0); MEAN CORPUSCULAR VOLUME 90.8 fL (81.0-99.0); MEAN PLATELET VOLUME 9.5 fL (7.9-10.8); MONOCYTES # (AUTO) 0.5 10^3/uL (0.0-1.0); MONOCYTES % (AUTO) 4.4 %; RED BLOOD COUNT 3.81 10^6/uL (4.20-5.40); RED CELL DISTRIBUTION WIDTH 13.9 % (12.0-15.0); UNCORRECTED WHITE BLOOD COUNT 11.5 x10^3/uL; WHITE BLOOD COUNT 11.5 x10^3/uL (4.8-10.8)
[2016-08-27] MEDS: PANTOPRAZOLE 40 MG VIAL IVP SCH (06:27)
[2016-08-27] MEDS: SODIUM CHLORIDE FLUSH 0.9% 10 ML SYRINGE IVP SCH ×2 (06:28→13:34)
[2016-08-27 06:30] LABS: ALBUMIN/GLOBULIN RATIO 0.8 (1.0-2.2); BILIRUBIN,TOTAL 0.5 mg/dL (0.2-1.0); CALCIUM 7.9 mg/dL (8.5-10.3); CREATININE 0.7 mg/dL (0.4-1.0); POTASSIUM 3.7 mmol/L (3.5-5.0); TOTAL PROTEIN 5.1 g/dL (6.7-8.2)
[2016-08-27] MEDS: ERTAPENEM 1 GM in SODIUM CHLORIDE 0.9% MINIBAG 100 ML IV SCH (09:14)
[2016-08-27] MEDS: NICOTINE 14 MG PATCH TOP SCH (09:15)
[2016-08-27] MEDS: HEPARIN 5,000 UNIT/ML VIAL SUBQ SCH (09:15)
--- NOTE | 2016-08-27 09:45 | PROVIDER PROGRESS NOTE ---
Subjective - General Admit Date: 08/24/16 Procedure Date: 08/25/16 Post Op Days: 2 Procedure Performed: Laparoscopy, segmental bowel resection POD#2 LAP APPY GABRIEL POD#4 - Review of Systems Wound/Incisions: positive: Dressing dry and intact Drain Type: GABRIEL round Drain Output Description: serousanguenous Approximate mls Output: 158 General: positive: No symptoms HEENT: positive: No symptoms Pulmonary: positive: No symptoms Cardiovascular: positive: No symptoms Gastrointestinal: positive: Abdominal pain (Post op appropriate) Genitourinary: positive: No symptoms Musculoskeletal: positive: No symptoms Skin: positive: No symptoms Psychiatric: positive: No symptoms All Other Systems: positive: Reviewed and negative - Other Other Information/Narrative: Patient seen at bedside. Has been ambulating using incetive spirometery and having flatus. Minilmal output from NG tube. Objective - Patient Data Reviewed Vital Signs: Yes Vital Signs: Vital Signs x48h Temp Pulse Resp BP Pulse Ox 08/27/16 08:11 36.8 C 97 18 121/83 H 100 08/27/16 04:51 36.9 C 96 18 114/76 99 08/27/16 02:45 98 08/27/16 02:30 88 L Intake & Output: Intake and Output Totals x24h 08/25/16 08/26/16 08/27/16 23:59 23:59 23:59 Intake Total 1704 3075 1037 Output Total 890 2368 905 Balance 814 707 132 - Lab Results Lab Results: 08/27/16 05:40 08/27/16 05:40 Other Lab Results: Lab Results x24hrs 08/27/16 08/27/16 Range/Units 05:40 05:40 WBC 11.5 H (4.8-10.8) x10^3/uL RBC 3.81 L (4.20-5.40) 10^6/uL Hgb 11.5 L (12.0-16.0) g/dL Hct 34.5 L (37.0-47.0) % MCV 90.8 (81.0-99.0) fL MCH 30.2 (27.0-31.0) pg MCHC 33.3 (32.0-36.0) g/dL RDW 13.9 (12.0-15.0) % Plt Count 190 (130-450) 10^3/uL MPV 9.5 (7.9-10.8) fL Neut # 10.0 H (1.5-6.6) 10^3/uL Lymph # 0.6 L (1.5-3.5) 10^3/uL [place] # 0.5 (0.0-1.0) 10^3/uL Eos # 0.4 (0.0-0.7) 10^3/uL Baso # 0.0 (0.0-0.1) 10^3/uL Absolute Nucleated RBC 0.00 x10^3/uL Nucleated RBCs 0.0 /100WBC Sodium 135 (135-145) mmol/L Potassium 3.7 (3.5-5.0) mmol/L Chloride 103 (101-111) mmol/L Carbon Dioxide 27 (21-32) mmol/L Anion Gap 5.0 L (6-13) BUN 7 (6-20) mg/dL Creatinine 0.7 (0.4-1.0) mg/dL Estimated GFR (MDRD) 89 (>89) Glucose 121 H (70-100) mg/dL Calcium 7.9 L (8.5-10.3) mg/dL Total Bilirubin 0.5 (0.2-1.0) mg/dL AST 31 (10-42) IU/L ALT 22 (10-60) IU/L Alkaline Phosphatase 63 (42-121) IU/L Total Protein 5.1 L (6.7-8.2) g/dL Albumin 2.2 L (3.2-5.5) g/dL Globulin 2.9 (2.1-4.2) g/dL Albumin/Globulin Ratio 0.8 L (1.0-2.2) - Current Medications Current Medications: Current Medications Generic Name Dose Route Start Last Admin Trade Name Freq PRN Reason Stop Dose Admin Heparin Sodium (Porcine) 5,000 unit 08/25/16 21:00 08/27/16 09:15 SUBQ 5,000 unit BID DORIS Administration Acetaminophen 100 mls @ 400 mls/hr 08/25/16 09:00 08/27/16 08:32 Ofirmev IV 400 mls/hr Q6H DORIS Administration Ertapenem 1 gm/ Sodium 100 mls @ 200 mls/hr 08/25/16 16:00 08/27/16 09:14 Chloride IV 200 mls/hr DAILY DORIS Administration Fentanyl/Bupivacaine/Sodium Chlor 250 mls @ 8 mls/hr 08/25/16 17:04 08/27/16 03 :39 Fent/Bupiv 2 Mcg/0.125% EP 8 mls/hr .[id number] PRN Administration PAIN Protocol Potassium Chloride/Dextrose/Sod Cl 1,000 mls @ 100 mls/hr 08/26/16 10:00 04:24 D5.45ns W/20 Meq Kcl IV 100 mls/hr .Q10H DORIS Administration Ketorolac Tromethamine 30 mg 08/25/16 22:26 08/26/16 18:37 Toradol Inj IVP 08/28/16 22:25 30 mg Q6HR PRN Administration PAIN Nicotine 1 patch 08/24/16 09:00 08/27/16 09:15 Nicoderm TOP 1 patch DAILY DORIS Administration Pantoprazole Sodium 40 mg 08/25/16 18:00 08/27/16 06:27 Protonix IVP 40 mg QDAC DORIS Administration Phenol/Menthol 1 sprays 08/24/16 00:25 08/25/16 22:03 Chloraseptic MM 1 sprays Q2HR PRN Administration Throat Pain Sodium Chloride 10 ml 08/24/16 00:25 08/26/16 18:37 Normal Saline Flush 0.9% IVP 10 ml PRN PRN Administration NEEDED PER PROVIDER ORDERS Sodium Chloride 10 ml 08/24/16 06:00 08/27/16 06:28 Normal Saline Flush 0.9% IVP 10 ml Q8HR DORIS Administration Throat Lozenges 1 lozenge 08/25/16 15:31 08/25/16 18:42 Cepacol MM 1 lozenge Q2HR PRN Administration Mouth Sore Pain - Physical Exam Wound/Incisions: positive: Dressing dry and intact General Appearance: positive: No acute distress Eyes Bilateral: positive: EOMI ENT: positive: No signs of dehydration Neck: positive: No JVD Respiratory: positive: No respiratory distress Cardiovascular: positive: Regular rate & rhythm Abdomen: positive: Tenderness (+Bs, soft, mild tenderness to palpation, no rebound or guarding) Skin: positive: Warm, Dry Extremities: negative: Pedal edema, Calf tenderness, Lan's sign/cords Neurologic/Psychiatric: positive: Oriented x3, CN's nml (2-12) Impression/Plan - Problem List Problem List: 51 yo female s/p Laparoscopic appendectomy with BASIM POD#4, Lparoscopy iwth segmental bowel resection POD #2 Will advance diet as tolerated Continue Ambulation and IS use Will continue ABX and pain control Dressing change later today.
[2016-08-27 15:52] LABS: TEST RESULT REPORT (())
[2016-08-27 15:52] LABS: BILIRUBIN,URINE NEGATIVE (NEGATIVE); PH,URINE 7.5 PH (5.0-7.5)
[2016-08-27 16:16] LABS: WBC,URINE 0-3 /HPF (0-5)
--- NOTE | 2016-08-27 17:18 | XRAY Preliminary Report ---
Exam: XR Chest 2 View PA/LAT IMPRESSION: Trace bilateral pleural effusions with airspace consolidation left lung base suspicious f or pneumonia in this clinical setting. [facility] SITE ID: [id number]
--- NOTE | 2016-08-27 17:20 | XRAY Report ---
EXAM: CHEST RADIOGRAPHY EXAM DATE: 08/27/2016 04:47 PM. CLINICAL HISTORY: New onset fever. COMPARISON: None. TECHNIQUE: 2 views. FINDINGS: Lungs/Pleura: Trace bilateral pleural effusions with air space consolidation in the left lower lobe. Minimal diskoid atelectasis right lung base. Mediastinum: Heart and mediastinal contours are unremarkable. Other: Surgical clips right upper quadrant. IMPRESSION: Trace bilateral pleural effusions with airspace consolidation left lung base suspicious f or pneumonia in this clinical setting. [facility] Referring Provider Line: [phone] SITE ID: [id number]
[2016-08-27] MEDS ORDERED: ENOXAPARIN 80 MG/0.8 ML SYRINGE SUBQ SCH (18:00)
[2016-08-27 20:44] LABS: ALBUMIN/GLOBULIN RATIO 0.7 (1.0-2.2); BILIRUBIN,TOTAL 0.6 mg/dL (0.2-1.0); CREATININE 0.6 mg/dL (0.4-1.0); POTASSIUM 3.6 mmol/L (3.5-5.0); TOTAL PROTEIN 5.4 g/dL (6.7-8.2)
--- NOTE | 2016-08-27 22:55 | CT Preliminary Report ---
Exam: CT Chest Angio (PE) IMPRESSION: 1. No pulmonary emboli. 2. Small bilateral pleural effusions with bilateral lower lobe atelectasis. Difficult to exclude supe rimposed bilateral lower lobe pneumonia. Correlate clinically. 3. Small volume pneumoperitoneum and retroperitoneal air. Findings the previously related to surgical procedure for recent appendicitis. 4. New drain or catheter in the right psoas muscle. Small amount of residual fluid noted. Per report, the patient has an epidural catheter. This is likely the epidural catheter in an abnormal position. [facility] The above critical findings were discussed with provider nghia by Dr. Jaymie Esteves at 20:24 hrs on 08/27/16. SITE ID: [id number]
--- NOTE | 2016-08-27 22:56 | CT Report ---
EXAM: CT ANGIOGRAM CHEST EXAM DATE: 08/27/2016 06:19 p.m. CLINICAL HISTORY: Pulmonary emboli, tachycardia with low O2 sat. COMPARISON: 08/27/2016. TECHNIQUE: Routine helical imaging was performed through the chest in the pulmonary arterial phase. I V Contrast: 100 mL of Isovue-300. Reconstructions: Coronal 3-D MIP reconstructions.Sagittal and coron al. In accordance with CT protocol optimization, one or more of the following dose reduction techniques w ere utilized for this exam: automated exposure control, adjustment of mA and/or KV based on patient s ize, or use of iterative reconstructive technique. FINDINGS: Pulmonary Arteries: Diagnostic quality: Adequate through the segmental arteries. No evidence for acute or chronic pulmona ry emboli. RV/LV is within normal limits. There is no interventricular septal bowing. There is no reflux of cont rast material in the IVC. Lungs/Pleura: Small bilateral pleural effusions. Bilateral lower lobe atelectasis. Superimposed bilat eral lower lobe infiltrates difficult to exclude. No large volume pneumothorax is seen. Small amounts of air are present in the left pleural fat anteriorly at the base as seen on image 12, 43. Mediastinum: Mild cardiac enlargement. No pericardial effusion. No bulky mediastinal or hilar adenopa thy. Thoracic Aorta: No aneurysm. Upper Abdomen: Small amounts of pneumoperitoneum are noted in the upper abdomen. Small locules of ret roperitoneal gas are also present, particularly in the right perinephric space. Other: No thyroid nodule or mass. No supraclavicular or axillary adenopathy. There is a catheter in the midline of the back terminating in the right psoas fluid collection. See i mage 182. IMPRESSION: 1. No pulmonary emboli. 2. Small bilateral pleural effusions with bilateral lower lobe atelectasis. Difficult to exclude supe rimposed bilateral lower lobe pneumonia. Correlate clinically. 3. Small volume pneumoperitoneum and retroperitoneal air. Findings may be related to surgical procedu re for recent appendicitis. 4. New drain or catheter in the right psoas muscle. Small amount of residual fluid noted. Per report, the patient has an epidural catheter. This is likely the epidural catheter in an abnormal position. Catheter not seen in the epidural space. [facility] The above critical findings were discussed with provider Milagro by Dr. Jaymie Esteves at 20:24 h rs on 08/27/16. Referring Provider Line: [phone] SITE ID: [id number]
[2016-08-28] MEDS ORDERED: IOPAMIDOL-300 100 ML VIAL IVP ONE (00:05)
--- NOTE | 2016-08-28 00:40 | Ultrasound Preliminary Report ---
Exam: US Duplex Ext Veins Bilateral IMPRESSION: 1. Small bilateral popliteal fossa cysts larger on the right than on the left. 2. No evidence for deep venous thrombosis bilaterally. [facility] SITE ID: [id number]
--- NOTE | 2016-08-28 00:41 | Ultrasound Report ---
EXAM: BILATERAL LOWER EXTREMITY VENOUS ULTRASOUND EXAM DATE: 08/27/2016 07:11 PM. CLINICAL HISTORY: Bilateral lower leg edema. Recent appendectomy. COMPARISON: None. TECHNIQUE: Real-time sonographic vascular imaging was performed by the head of digital through the lower extremities utilizing both color-flow and Doppler spectral analysis. Multiple veterans contact representative static i mages were saved for review. FINDINGS: Right: Common Femoral Vein (CFV): Normal. CFV-GSV Junction: Normal. Profunda Femoral Vein (PFV): Normal. Femoral Vein (FV) Prox: Normal. Femoral Vein (FV) Mid: Normal. Femoral Vein (FV) Dist: Normal. Popliteal Vein: Normal. Posterior Tibial Veins: Normal. Peroneal Veins: Normal. Left: Common Femoral Vein (CFV): Normal. CFV-GSV Junction: Normal. Profunda Femoral Vein (PFV): Normal. Femoral Vein (FV) Prox: Normal. Femoral Vein (FV) Mid: Normal. Femoral Vein (FV) Dist: Normal. Popliteal Vein: Normal. Posterior Tibial Veins: Normal. Peroneal Veins: Normal. Other: Right popliteal fossa collection measures 1.4 x 1.7 x 1.6 cm. Left popliteal fossa collection measures 0.6 x 1.5 x 1.3 cm. IMPRESSION: 1. Small bilateral popliteal fossa cysts, larger on the right than on the left. 2. No evidence for deep venous thrombosis bilaterally. [facility] Referring Provider Line: [phone] SITE ID: [id number]
[2016-08-28] MEDS: SODIUM CHLORIDE 0.9% 1,000 ML IV SCH ×2 (01:18→05:27)
[2016-08-28] MEDS: SODIUM CHLORIDE FLUSH 0.9% 10 ML SYRINGE IVP SCH ×4 (01:19→20:10)
[2016-08-28] MEDS: VANCOMYCIN INJ 1 GM in SODIUM CHLORIDE 0.9% 250 ML IV SCH ×3 (01:19→21:16)
[2016-08-28] MEDS: ACETAMINOPHEN 1,000 MG/100 ML 100 ML IV SCH ×4 (01:19→20:02)
[2016-08-28] MEDS: PIPERACILLIN/TAZOBACTAM 4.5 GM in SODIUM CHLORIDE 0.9% MINIBAG 100 ML IV SCH ×5 (01:19→23:54)
--- NOTE | 2016-08-28 02:29 | CT Preliminary Report ---
Exam: CT Abdomen/Pelvis W/O IMPRESSION: 1. Excreted contrast in the urinary tract from prior CT angiogram. 2. Decompressed urinary bladder with Cmkeon catheter. Mild bladder wall thickening which could represe nt hypertrophy and nondistention. Cystitis not entirely excluded. No obvious extravasation from the u rinary bladder. 3. Postoperative changes with surgical drains in place. Small amount of free air. Fluid collection in the cul-de-sac measuring 6.4 x 6.0 cm. This could represent some residual postoperative fluid. Devel oping abscess also possible. 4. Small bore catheter again seen extending into the right psoas muscle. This is presumably an anesth esia catheter. There is some air and decreased attenuation in the muscle, similar compared with the p rior chest CT. 5. Bibasilar atelectasis or infiltrate and small pleural effusions. [facility] SITE ID: [id number]
--- NOTE | 2016-08-28 02:32 | CT Report ---
EXAM: CT ABDOMEN AND PELVIS (CT KUB) EXAM DATE: 08/27/2016 11:39 PM. CLINICAL HISTORY: MICROSCOPIC BLOOD IN URINE.. R/O BLADDER LEAKAGE VS STONES. COMPARISONS: 08/23/2016 and 08/27/2016. TECHNIQUE: Routine axial helical CT imaging was performed through the abdomen and pelvis without IV c ontrast. Reconstructions: Coronal and sagittal. In accordance with CT protocol optimization, one or more of the following dose reduction techniques w ere utilized for this exam: automated exposure control, adjustment of mA and/or KV based on patient s ize, or use of iterative reconstructive technique. FINDINGS: Lung Bases: Bibasilar atelectasis or infiltrate and small pleural effusions, left greater than right. Right Kidney/Ureter: Excreted contrast from prior CT angiogram. No obvious urolithiasis or obstructiv e uropathy. Left Kidney/Ureter: Excreted contrast from prior CT angiogram. No obvious urolithiasis or obstructive uropathy. Other Solid Organs: No focal lesions are seen in the liver on this noncontrast examination. Spleen, p ancreas, and adrenals show no focal abnormalities. Gallbladder/Bile Ducts: Status post cholecystectomy. Peritoneal Cavity: Postoperative changes. Mild amount of free air. Fluid collection in the cul-de-sac measuring 6.0 x 6.4 cm. Small bowel anastomosis is seen. No definite small bowel obstruction. There are some colonic diverticula but no diverticulitis is identified. Status post appendectomy. Small bor e catheter again seen in the right psoas muscle. There is some associated air and decreased attenuati on in the psoas muscle which could represent injected material. Pelvic Organs: Uterus is not seen. Decompressed urinary bladder with Mckeon catheter in place. There i s some excreted contrast in the bladder from prior CT angiogram. Urinary bladder wall appears thicken ed. No contrast extravasation is identified. Vasculature: Mild to moderate atherosclerosis. No aortic aneurysm. Other: None. IMPRESSION: 1. Excreted contrast in the urinary tract from prior CT angiogram. 2. Decompressed urinary bladder with Mckeon catheter. Mild bladder wall thickening which could represe nt hypertrophy and nondistention. Cystitis not entirely excluded. No obvious extravasation from the u rinary bladder. 3. Postoperative changes with surgical drains in place. Small amount of free air. Fluid collection in the cul-de-sac measuring 6.4 x 6.0 cm. This could represent some residual postoperative fluid. Devel oping abscess also possible. 4. Small bore catheter again seen extending into the right psoas muscle. This is presumably an anesth esia catheter. There is some air and decreased attenuation in the muscle, similar compared with the p rior chest CT. 5. Bibasilar atelectasis or infiltrate and small pleural effusions. [facility] Referring Provider Line: [phone] SITE ID: [id number]
--- NOTE | 2016-08-28 06:00 | CONSULTATION NOTE ---
MEDICAL CONSULTATION DATE OF CONSULTATION: 08/27/2016 00:00:00 REQUESTING PROVIDER: Robbie Humphrey MD REASON FOR CONSULTATION: Consultation is requested by Robbie Humphrey MD, of General Surgery, regarding postoperative fever. HISTORY OF PRESENT ILLNESS: This patient is a 51-year-old patient who presented to [facility] 4 days ago with acute appendicitis. During her surgery, she also had adhesions lysed. She apparently did fine immediately after surgery, but then developed worsening abdominal symptoms, and was taken back to the OR for what is described as a bowel leak. She had a segmental resection. She did fairly well until this morning, when she developed fever and chills. She reports she has been having some sweats, as well as mild headache and dizziness, mildly blurred vision, left earache, mild sore throat due to the recent NG tube. She has had an intermittent cough and says she does cough up greenish phlegm. She has some chest tightness when she takes a deep breath, but does not feel short of breath. She denies current abdominal pain, nausea or vomiting or diarrhea. She has not yet had a bowel movement, but is passing gas. She just started on a clear liquid diet today. She does have a Cmkeon catheter in place. She has been on ertapenem since her surgery. She otherwise does not have new complaints to report. PAST MEDICAL HISTORY: Mainly consist of GERD, hypertension, ovarian cyst, status post hysterectomy with oophorectomy, cholecystectomy, chronic left hip pain due to an injury she received in [facility]. HOME MEDICATIONS Include: 1. Nexium. 2. Meloxicam. 3. Propranolol. ALLERGIES 1. SHE IS ALLERGIC TO AVOCADOS. 2. SHE IS ALSO ALLERGIC TO VERSED, WHICH SHE HAS BEEN TOLD MAKES HER VIOLENT. FAMILY HISTORY: Mother is status post 4-vessel CABG at age 70. Her father at age 72 with heart failure. She has a sister who is alive and well. She had 2 cousins in their 20s with heart problems. SOCIAL HISTORY: The patient has been smoking since the age of 14, and currently smokes about 1 pack per day. She drinks alcohol rarely and does not use drugs. She is retired from the [employer]. She lives with her and her son. REVIEW OF SYSTEMS: As noted above. PHYSICAL EXAMINATION GENERAL: She is a well-developed, well-nourished female in no acute distress. VITAL SIGNS: Temperature is 39.2, heart rate is 109, blood pressure 128/84, respiratory rate 18, O2 saturation 97% on 1 liter. HEENT: Head is normocephalic, atraumatic. EYES: PERRLA, EOMI, anicteric. EARS: TMs and canals are clear. PHARYNX: Pharynx is clear. Upper jaw is edentulous. She only has 4 teeth in the lower jaw. Mucosa otherwise appears normal. NECK: Supple, without lymphadenopathy, JVD, thyromegaly, bruits. CARDIAC: She has a regular rate and rhythm, with normal S1 and S2, without murmurs, rubs, gallops. LUNGS: Clear to auscultation, except for a few crackles at the bases bilaterally. No rhonchi or wheezes are noted. There is no accessory muscle use. ABDOMEN: Soft. There is some vague lower abdominal tenderness. Bowel sounds are active. Lower abdominal incision is bandaged, with a clean and dry dressing. There is also a drain in place. Her lower back also has an epidural taped in place. Mckeon catheter is draining what appears to be clear yellow urine. EXTREMITIES: She has no cyanosis, clubbing, edema. Pulses are intact. SCDs are in place. DIAGNOSTIC IMAGING: Surgery tells me the preliminary report on her chest CT done about an hour ago shows small bilateral lower lobe infiltrates, and small bilateral pleural effusions. No PE is seen. LABORATORY DATA: CBC today shows a white blood cell count that is mildly elevated at 11,500, with an absolute neutrophil count of 10,000. Hemoglobin 11.5 , hematocrit 34.5. Chemistry panel is notable for a sodium of 134, calcium 8.0, albumin 2.2. Urinalysis today is normal except for too numerous to count red blood cells. Leukocyte esterase is negative, nitrites are negative. Troponin is normal. Chest x-ray is consistent with possible early left lower lobe pneumonia and small bilateral pleural effusions. ASSESSMENT AND PLAN 1. Infectious disease/fever. This patient had a postop fever. Current workup is most consistent with left lower lobe pneumonia as the cause. -Agree with changing her ertapenem over to Zosyn plus vancomycin. -Blood and sputum cultures are pending. This should give her good coverage for pneumonia. -Continue incentive spirometry. 2. Genitourinary. The patient does present with what appears to be new onset hematuria, although she does not have gross hematuria. -This was reviewed with Dr. Humphrey from Surgery, as well as Dr. Doss from Radiology. He suggested, since she just had IV dye for her chest CT, that we do a noncontrast CT of her belly, looking for stones and/or evidence of extravasation of dye from the urinary system. 3. Hypertension. Blood pressure is currently well controlled. Continue current medications as tolerated. 4. Gastrointestinal. Continue either oral Nexium or IV Protonix for her gastroesophageal reflux disease history. 5. Chronic left hip pain. I would continue to use Tylenol and p.r.n. morphine. I would withhold NSAIDs at this time, if she is able to do without them. 6. Tobacco abuse. Nicoderm is in place. Offer smoking cessation counseling. 7. This visit took approximately 60 minutes, to review patient's history and labs, interview and examine her, discuss with Surgery and Radiology, and write orders. 8. Of note, the computer system is currently down here at the hospital, so I do not have easy access to look over her results while I am dictating. Labs are as noted from my review at the nurses' station, and are dictated from my notes, so there is the possibility of error. JOB #: [id number] EXT JOB #:[id number] [email or web address]
[2016-08-28] MEDS: PANTOPRAZOLE 40 MG VIAL IVP SCH (06:38)
[2016-08-28] MEDS: NICOTINE 14 MG PATCH TOP SCH (10:29)
[2016-08-28] MEDS: FLUCONAZOLE 200 MG/100 ML 100 ML IV SCH (10:40)
[2016-08-28] MEDS ORDERED: HEPARIN 5,000 UNIT/ML VIAL SUBQ SCH (11:00)
[2016-08-28] MEDS ORDERED: SODIUM CHLORIDE 0.9% 1,000 ML IV SCH (11:35)
--- NOTE | 2016-08-28 11:41 | PROVIDER PROGRESS NOTE ---
Subjective - General Admit Date: 08/24/16 Procedure Date: 08/25/16 Post Op Days: 3 Procedure Performed: Laparoscopy, segmental bowel resection POD#3 LAP APPY GABRIEL POD#5 - Review of Systems Wound/Incisions: positive: Dressing dry and intact Drain Type: GABRIEL round Drain Output Description: serousanguenous Approximate mls Output: 10 General: positive: No symptoms HEENT: positive: No symptoms Pulmonary: positive: No symptoms Cardiovascular: positive: No symptoms Gastrointestinal: positive: Abdominal pain (Post op appropriate) Genitourinary: positive: No symptoms Musculoskeletal: positive: No symptoms Skin: positive: No symptoms Psychiatric: positive: No symptoms All Other Systems: positive: Reviewed and negative - Other Other Information/Narrative: Patient seen at bedside. Patient was having fever spikes yesterday to 39.2, Fever workup of UA, blood cultures CXR, LE dopplers and CTA, elucidated B/L effusions with suspicion for PNA. High suspicion for DVT/PE based off of low SPO @ (92) on room air with tachycardia, risk / benefit of therapeutic anticoagulation was weighed and given. DVT/PE workup later confirmed to be negative. Troponin negative. Ua had microscopic blood in urine, and CT abd/p no bladder leaks or stones. Medical consult called. Abx changed. Patient has been afebrile, feeling better. No other events reported. Objective - Patient Data Vital Signs: Vital Signs x48h Temp Pulse Resp BP Pulse Ox 08/28/16 08:44 36.7 C 85 18 123/85 H 100 Intake & Output: Intake and Output Totals x24h 08/26/16 08/27/16 08/28/16 23:59 23:59 23:59 Intake Total 3075 2090 1737 Output Total 2368 1460 1900 Balance 707 082 -163 - Lab Results Lab Results: 08/27/16 05:40 08/27/16 20:19 Other Lab Results: Lab Results x24hrs 08/27/16 08/27/16 08/27/16 Range/Units 20:19 20:19 15:00 Sodium 134 L (135-145) mmol/L Potassium 3.6 (3.5-5.0) mmol/L Chloride 101 (101-111) mmol/L Carbon Dioxide 27 (21-32) mmol/L Anion Gap 6.0 (6-13) BUN 6 (6-20) mg/dL Creatinine 0.6 (0.4-1.0) mg/dL Estimated GFR (MDRD) 106 (>89) Glucose 93 (70-100) mg/dL Calcium 8.0 L (8.5-10.3) mg/dL Total Bilirubin 0.6 (0.2-1.0) mg/dL AST 41 (10-42) IU/L ALT 24 (10-60) IU/L Alkaline Phosphatase 78 (42-121) IU/L Troponin I 0.10 (<0.49) ng/mL Total Protein 5.4 L (6.7-8.2) g/dL Albumin 2.2 L (3.2-5.5) g/dL Globulin 3.2 (2.1-4.2) g/dL Albumin/Globulin Ratio 0.7 L (1.0-2.2) Urine Color YELLOW Urine Clarity CLEAR (CLEAR) Urine pH 7.5 (5.0-7.5) PH Ur Specific Mansfield 1.020 (1.002-1.030) Urine Protein 30 H (NEGATIVE) mg/dL Urine Glucose (UA) NEGATIVE (NEGATIVE) mg/dL Urine Ketones NEGATIVE (NEGATIVE) mg/dL Urine Occult Blood MODERATE H (NEGATIVE) Urine Nitrite NEGATIVE (NEGATIVE) Urine Bilirubin NEGATIVE (NEGATIVE) Urine Urobilinogen 0.2 (NORMAL) (NORMAL) E.U./dL Ur Leukocyte Esterase NEGATIVE (NEGATIVE) Urine RBC TNTC H (0-5) /HPF Urine WBC 0-3 (0-5) /HPF Ur Squamous Epith Cells RARE Squamous (<= Few) Urine Bacteria None Seen (None Seen) /HPF Ref Lab Test Result (()) 08/24/ Range/Units 23:20 Sodium (135-145) mmol/L Potassium (3.5-5.0) mmol/L Chloride (101-111) mmol/L Carbon Dioxide (21-32) mmol/L Anion Gap (6-13) BUN (6-20) mg/dL Creatinine (0.4-1.0) mg/dL Estimated GFR (MDRD) (>89) Glucose (70-100) mg/dL Calcium (8.5-10.3) mg/dL Total Bilirubin (0.2-1.0) mg/dL AST (10-42) IU/L ALT (10-60) IU/L Alkaline Phosphatase (42-121) IU/L Troponin I (<0.49) ng/mL Total Protein (6.7-8.2) g/dL Albumin (3.2-5.5) g/dL Globulin (2.1-4.2) g/dL Albumin/Globulin Ratio (1.0-2.2) Urine Color Urine Clarity (CLEAR) Urine pH (5.0-7.5) PH Ur Specific Mansfield (1.002-1.030) Urine Protein (NEGATIVE) mg/dL Urine Glucose (UA) (NEGATIVE) mg/dL Urine Ketones (NEGATIVE) mg/dL Urine Occult Blood (NEGATIVE) Urine Nitrite (NEGATIVE) Urine Bilirubin (NEGATIVE) Urine Urobilinogen (NORMAL) E.U./dL Ur Leukocyte Esterase (NEGATIVE) Urine RBC (0-5) /HPF Urine WBC (0-5) /HPF Ur Squamous Epith Cells (<= Few) Urine Bacteria (None Seen) /HPF Ref Lab Test Result REPORT (()) - Current Medications Current Medications: Current Medications Generic Name Dose Route Start Last Admin Trade Name Freq PRN Reason Stop Dose Admin Fentanyl/Bupivacaine/Sodium Chlor 250 mls @ 8 mls/hr 08/25/16 17:04 08/27/16 03 :39 Fent/Bupiv 2 Mcg/0.125% EP 8 mls/hr .[id number] PRN Administration PAIN Protocol Fluconazole 100 mls @ 100 mls/hr 08/28/16 09:00 08/28/16 10:40 Diflucan 200 Mg/100 Ml IV 100 mls/hr DAILY DORIS Administration Piperacillin Sod/Tazobactam 100 mls @ 200 mls/hr 08/27/16 21:00 08/28/16 03:05 Sod 4.5 gm/ Sodium Chloride IV 200 mls/hr Q6H DORIS Administration Vancomycin HCl 1 gm/ Sodium 250 mls @ 167 mls/hr 08/27/16 21:00 08/28/16 10:52 Chloride IV 167 mls/hr Q12H DORIS Administration Nicotine 1 patch 08/24/16 09:00 08/28/16 10:29 Nicoderm TOP 1 patch DAILY DORIS Administration Pantoprazole Sodium 40 mg 08/25/16 18:00 08/28/16 06:38 Protonix IVP 40 mg QDAC DORIS Administration Phenol/Menthol 1 sprays 08/24/16 00:25 08/25/16 22:03 Chloraseptic MM 1 sprays Q2HR PRN Administration Throat Pain Sodium Chloride 10 ml 08/24/16 00:25 08/26/16 18:37 Normal Saline Flush 0.9% IVP 10 ml PRN PRN Administration NEEDED PER PROVIDER ORDERS Sodium Chloride 10 ml 08/24/16 06:00 08/28/16 05:20 Normal Saline Flush 0.9% IVP Not Given Q8HR DORIS Throat Lozenges 1 lozenge 08/25/16 15:31 08/25/16 18:42 Cepacol MM 1 lozenge Q2HR PRN Administration Mouth Sore Pain - Physical Exam Wound/Incisions: positive: Healing well General Appearance: positive: No acute distress, Alert Eyes Bilateral: positive: EOMI ENT: positive: No signs of dehydration Neck: positive: Nml inspection Respiratory: positive: No respiratory distress Abdomen: positive: Nml bowel sounds (Hypoactive bowel sounds, mild TTP, ND, no rebound or guarding) Back: positive: Nml inspection Skin: positive: Warm, Dry Extremities: positive: Full ROM Neurologic/Psychiatric: positive: Oriented x3, CN's nml (2-12) Impression/Plan - Problem List Problem List: 51 yo female s/p Laparoscopic appendectomy with BASIM , s/p Laparoscopy with segmental bowel resection, now with atelectasis vs PNA Will advance diet as tolerated Begin oral pain medications Hold heparin - Anesthesia to pull epidural after 24 hours from lovenox Continue ambulation IS TKO
[2016-08-28] MEDS: diphenhydrAMINE INJ 50 MG/ML VIAL IV PRN (12:35)
[2016-08-28] MEDS: oxyCOD/ACETAMIN 5 MG/325 MG TABLET PO PRN ×4 (12:35→23:50)
[2016-08-28 17:36] LABS: BASOPHILS % (AUTO) 0.3 %; EOSINOPHILS # (AUTO) 0.4 10^3/uL (0.0-0.7); EOSINOPHILS % (AUTO) 4.2 %; HCT - HEMATOCRIT 34.5 % (37.0-47.0); HGB - HEMOGLOBIN 11.4 g/dL (12.0-16.0); LYMPHOCYTES # (AUTO) 1.1 10^3/uL (1.5-3.5); LYMPHOCYTES % (AUTO) 10.6 %; MEAN CORPUSCULAR HEMOGLOBIN 30.7 pg (27.0-31.0); MEAN CORPUSCULAR HGB CONC 33.2 g/dL (32.0-36.0); MEAN CORPUSCULAR VOLUME 92.5 fL (81.0-99.0); MONOCYTES # (AUTO) 0.7 10^3/uL (0.0-1.0); MONOCYTES % (AUTO) 6.7 %; NEUTROPHILS # (AUTO) 7.9 10^3/uL (1.5-6.6); NEUTROPHILS % (AUTO) 78.2 %; NUCLEATED RED BLOOD CELLS AUTO 0.1 /100WBC; RED BLOOD COUNT 3.73 10^6/uL (4.20-5.40); RED CELL DISTRIBUTION WIDTH 13.5 % (12.0-15.0); UNCORRECTED WHITE BLOOD COUNT 10.1 x10^3/uL; WHITE BLOOD COUNT 10.1 x10^3/uL (4.8-10.8)
[2016-08-28 17:52] LABS: CALCIUM 8.2 mg/dL (8.5-10.3); CREATININE 0.6 mg/dL (0.4-1.0); POTASSIUM 3.3 mmol/L (3.5-5.0)
[2016-08-28] MEDS ORDERED: POTASSIUM CHLORIDE 20 MEQ TABLET PO SCH (19:00)
[2016-08-28] MEDS: MAGNESIUM OXIDE 400 MG TABLET PO SCH (20:07)
--- NOTE | 2016-08-28 20:09 | PROVIDER PROGRESS NOTE ---
Subjective - Prog Note Date Prog Note Date: 08/28/16 Prog Note Time: 20:07 (seen ~8am) - Subjective Pt reports feeling: Improved (Dr. Hyatt consult from last pm reviewed) was out of bed yesterday, per RN epidural will be pulled 08/29 (then can pull peralta) Pt reports abdominal pain improving , tolerating PO, overall feeling improved) Current Medications - Current Medications Current Medications: Active Medications Generic Name Dose Route Start Last Admin Trade Name Freq PRN Reason Stop Dose Admin Diphenhydramine HCl 12.5 - 25 mg 08/25/16 16:56 08/28/16 12:35 Benadryl Inj IV 25 mg Q6H PRN Administration PRURITIS Docusate Sodium 250 - 500 mg 08/29/16 09:00 Colace 250mg Capsule PO DAILY DORIS Fentanyl/Bupivacaine/Sodium Chlor 250 mls @ 8 mls/hr 08/25/16 17:04 08/27/16 03 :39 Fent/Bupiv 2 Mcg/0.125% EP 8 mls/hr .[id number] PRN Administration PAIN Protocol Fluconazole 100 mls @ 100 mls/hr 08/28/16 09:00 08/28/16 10:40 Diflucan 200 Mg/100 Ml IV 08/30/16 08:59 100 mls/hr DAILY DORIS Administration Piperacillin Sod/Tazobactam 100 mls @ 200 mls/hr 08/27/16 21:00 08/28/16 17:03 Sod 4.5 gm/ Sodium Chloride IV 200 mls/hr Q6H DORIS Administration Vancomycin HCl 1 gm/ Sodium 250 mls @ 167 mls/hr 08/27/16 21:00 08/28/16 10:52 Chloride IV 167 mls/hr Q12H DORIS Administration Sodium Chloride 1,000 mls @ 30 mls/hr 08/28/16 11:35 08/28/16 17:09 Normal Saline 0.9% IV 30 mls/hr .[id number] DORIS Administration TKO Acetaminophen 100 mls @ 400 mls/hr 08/28/16 21:00 08/28/16 20:02 Ofirmev IV 400 mls/hr BID DORIS Administration Magnesium Oxide 400 mg 08/28/16 21:00 Mag Ox PO 08/30/16 20:59 BID DORIS Multivitamins/Minerals 1 tab 08/29/16 08:00 Theragran M PO DAILYWM DORIS Nalbuphine HCl 2.5 - 5 mg 08/25/16 16:56 Nubain IVP Q4HR PRN PRUTITIS Nicotine 1 patch 08/24/16 09:00 08/28/16 10:29 Nicoderm TOP 1 patch DAILY DORIS Administration Oxycodone/Acetaminophen 1 tab 08/28/16 11:29 08/28/16 20:02 Percocet 5 Mg/325 Mg PO 1 tab Q4HR PRN Administration PAIN Pantoprazole Sodium 40 mg 08/25/16 18:00 08/28/16 06:38 Protonix IVP 40 mg QDAC DORIS Administration Phenol/Menthol 1 sprays 08/24/16 00:25 08/25/16 22:03 Chloraseptic MM 1 sprays Q2HR PRN Administration Throat Pain Polyethylene Glycol 17 gm 08/29/16 09:00 Miralax PO DAILY DORIS Sodium Chloride 10 ml 08/24/16 00:25 08/26/16 18:37 Normal Saline Flush 0.9% IVP 10 ml PRN PRN Administration NEEDED PER PROVIDER ORDERS Sodium Chloride 10 ml 08/24/16 06:00 08/28/16 12:35 Normal Saline Flush 0.9% IVP 10 ml Q8HR DORIS Administration Throat Lozenges 1 lozenge 08/25/16 15:31 08/25/16 18:42 Cepacol MM 1 lozenge Q2HR PRN Administration Mouth Sore Pain Propranolol HCl [Inderal LA] 120 mg PO DAILY 08/23/16 Objective - Vital Signs/Intake & Output Reviewed Vital Signs: Yes Vital Signs: Vital Signs x48h Temp Pulse Resp BP Pulse Ox 08/28/16 18:46 36.8 C 99 18 151/94 H 99 08/28/16 16:13 36.8 C 89 20 138/92 H 98 08/28/16 13:45 36.5 C 96 18 128/83 H 97 last documented fever 08/27 ~ 2pm (39.2) Intake & Output: Intake & Output 08/25/16 08/26/16 08/27/16 08/28/16 23:59 23:59 23:59 23:59 Intake Total 1704 3075 2090 4682 Output Total 890 2368 1460 3100 Balance 814 738 829 0348 - Objective General Appearance: positive: No acute distress, Other (sitting up in bed, NAD, non toxic appearing, looks tired) Eyes Bilateral: positive: EOMI, No scleral icterus Respiratory: positive: No respiratory distress, Breath sounds nml. negative: Wheezes, Rales, Rhonchi Cardiovascular: positive: Regular rate & rhythm, No murmur Abdomen: positive: Other (abdomen rounded, patient denies distension, clean midline dressing, GABRIEL bulb w/ scant serosang drainage) Back: positive: Nml inspection. negative: CVA tenderness (R), CVA tenderness (L ) Skin: positive: Warm, Dry Neurologic/Psychiatric: positive: Mood/affect nml (slightly flat) - Lab Results Fish Bones: 08/29/16 05:36 08/29/16 18:55 Other Labs: Lab Results x24hrs 08/28/16 08/28/16 08/27/16 Range/Units 17:06 17:06 20:19 WBC 10.1 (4.8-10.8) x10^3/uL RBC 3.73 L (4.20-5.40) 10^6/uL Hgb 11.4 L (12.0-16.0) g/dL Hct 34.5 L (37.0-47.0) % MCV 92.5 (81.0-99.0) fL MCH 30.7 (27.0-31.0) pg MCHC 33.2 (32.0-36.0) g/dL RDW 13.5 (12.0-15.0) % Plt Count 240 (130-450) 10^3/uL MPV 9.0 (7.9-10.8) fL Neut # 7.9 H (1.5-6.6) 10^3/uL Lymph # 1.1 L (1.5-3.5) 10^3/uL Moore # 0.7 (0.0-1.0) 10^3/uL Eos # 0.4 (0.0-0.7) 10^3/uL Baso # 0.0 (0.0-0.1) 10^3/uL Absolute Nucleated RBC 0.01 x10^3/uL Nucleated RBCs 0.1 /100WBC Sodium 136 (135-145) mmol/L Potassium 3.3 L (3.5-5.0) mmol/L Chloride 101 (101-111) mmol/L Carbon Dioxide 27 (21-32) mmol/L Anion Gap 8.0 (6-13) BUN 8 (6-20) mg/dL Creatinine 0.6 (0.4-1.0) mg/dL Estimated GFR (MDRD) 106 (>89) Glucose 82 (70-100) mg/dL Calcium 8.2 L (8.5-10.3) mg/dL Total Bilirubin (0.2-1.0) mg/dL AST (10-42) IU/L ALT (10-60) IU/L Alkaline Phosphatase (42-121) IU/L Troponin I 0.10 (<0.49) ng/mL Total Protein (6.7-8.2) g/dL Albumin (3.2-5.5) g/dL Globulin (2.1-4.2) g/dL Albumin/Globulin Ratio (1.0-2.2) // Range/Units 20:19 WBC (4.8-10.8) x10^3/uL RBC (4.20-5.40) 10^6/uL Hgb (12.0-16.0) g/dL Hct (37.0-47.0) % MCV (81.0-99.0) fL MCH (27.0-31.0) pg MCHC (32.0-36.0) g/dL RDW (12.0-15.0) % Plt Count (130-450) 10^3/uL MPV (7.9-10.8) fL Neut # (1.5-6.6) 10^3/uL Lymph # (1.5-3.5) 10^3/uL Moore # (0.0-1.0) 10^3/uL Eos # (0.0-0.7) 10^3/uL Baso # (0.0-0.1) 10^3/uL Absolute Nucleated RBC x10^3/uL Nucleated RBCs /100WBC Sodium 134 L (135-145) mmol/L Potassium 3.6 (3.5-5.0) mmol/L Chloride 101 (101-111) mmol/L Carbon Dioxide 27 (21-32) mmol/L Anion Gap 6.0 (6-13) BUN 6 (6-20) mg/dL Creatinine 0.6 (0.4-1.0) mg/dL Estimated GFR (MDRD) 106 (>89) Glucose 93 (70-100) mg/dL Calcium 8.0 L (8.5-10.3) mg/dL Total Bilirubin 0.6 (0.2-1.0) mg/dL AST 41 (10-42) IU/L ALT 24 (10-60) IU/L Alkaline Phosphatase 78 (42-121) IU/L Troponin I (<0.49) ng/mL Total Protein 5.4 L (6.7-8.2) g/dL Albumin 2.2 L (3.2-5.5) g/dL Globulin 3.2 (2.1-4.2) g/dL Albumin/Globulin Ratio 0.7 L (1.0-2.2) Assessment/Plan - Problem List (1) Postoperative fever Impression: no recurrent fever since 2p yesterday hemodynamically stable chest exam unremarkable today, 99% RA ERtapenem was changed to zosyn, vanco extensive w/u neg thus far, blood cx NGTD Infiltrates on pulm imaging "infiltrate vs atelectasis" will recheck CXR in am , if no clear infiltrate after ~ 48 hr IS use, can d/c vanc (as have relativley low suspician for MRSA
[2016-08-29] MEDS ORDERED: DEXTROSE 5%-0.45% NACL 1,000 ML IV SCH
[2016-08-29] MEDS ORDERED: GLYCERIN ADULT SUPP PR ONE (03:48)
[2016-08-29] MEDS ORDERED: METOCLOPRAMIDE 10 MG/2 ML VIAL IVP SCH (04:00)
[2016-08-29] MEDS ORDERED: FUROSEMIDE 40 MG/4 ML VIAL IVP SCH (04:30)
--- NOTE | 2016-08-29 04:46 | PROVIDER PROGRESS NOTE ---
Subjective - General Admit Date: 08/24/16 Procedure Date: 08/25/16 Post Op Days: 4 Procedure Performed: Laparoscopy, segmental bowel resection POD#4 LAP APPY GABRIEL POD#6 - Review of Systems Wound/Incisions: positive: Healing well Drain Type: GABRIEL round Drain Output Description: serousanguenous Approximate mls Output: 10 General: positive: No symptoms, Weakness HEENT: positive: No symptoms Pulmonary: positive: No symptoms, Shortness of breath Cardiovascular: positive: No symptoms Gastrointestinal: positive: Abdominal pain (Post op appropriate) Genitourinary: positive: No symptoms Musculoskeletal: positive: No symptoms Skin: positive: No symptoms Psychiatric: positive: No symptoms All Other Systems: positive: Reviewed and negative - Other Other Information/Narrative: Called to floor by RN due to patient awakened with SOB and 3/10 abdominal pain. RN noticed some new distention. Further evaluation on CXR and KUB looks like atelectasis and ileus with stool in colon. Patient has not been having bms, yet tolerating fulls and passing BM. VSS. Afebrile. Good urine output Objective - Patient Data Reviewed Vital Signs: Yes Vital Signs: Vital Signs x48h Temp Pulse Resp BP Pulse Ox 08/29/16 01:53 36.9 C 96 16 137/82 H 93 Weight: Weight 08/27/16 08/28/16 08/29/16 23:59 23:59 23:59 Weight (kg) 87.5 kg Intake & Output: Intake and Output Totals x24h 08/27/16 08/28/16 08/29/16 23:59 23:59 23:59 Intake Total 2090 4982 Output Total 1460 4050 800 Balance 630 932 -800 - Lab Results Lab Results: 08/28/16 17:06 08/28/16 17:06 Other Lab Results: Lab Results x24hrs 08/28/16 08/28/16 Range/Units 17:06 17:06 WBC 10.1 (4.8-10.8) x10^3/uL RBC 3.73 L (4.20-5.40) 10^6/uL Hgb 11.4 L (12.0-16.0) g/dL Hct 34.5 L (37.0-47.0) % MCV 92.5 (81.0-99.0) fL MCH 30.7 (27.0-31.0) pg MCHC 33.2 (32.0-36.0) g/dL RDW 13.5 (12.0-15.0) % Plt Count 240 (130-450) 10^3/uL MPV 9.0 (7.9-10.8) fL Neut # 7.9 H (1.5-6.6) 10^3/uL Lymph # 1.1 L (1.5-3.5) 10^3/uL Ellsworth # 0.7 (0.0-1.0) 10^3/uL Eos # 0.4 (0.0-0.7) 10^3/uL Baso # 0.0 (0.0-0.1) 10^3/uL Absolute Nucleated RBC 0.01 x10^3/uL Nucleated RBCs 0.1 /100WBC Sodium 136 (135-145) mmol/L Potassium 3.3 L (3.5-5.0) mmol/L Chloride 101 (101-111) mmol/L Carbon Dioxide 27 (21-32) mmol/L Anion Gap 8.0 (6-13) BUN 8 (6-20) mg/dL Creatinine 0.6 (0.4-1.0) mg/dL Estimated GFR (MDRD) 106 (>89) Glucose 82 (70-100) mg/dL Calcium 8.2 L (8.5-10.3) mg/dL - Current Medications Current Medications: Current Medications Generic Name Dose Route Start Last Admin Trade Name Freq PRN Reason Stop Dose Admin Diphenhydramine HCl 12.5 - 25 mg 08/25/16 16:56 08/28/16 12:35 Benadryl Inj IV 25 mg Q6H PRN Administration PRURITIS Fentanyl/Bupivacaine/Sodium Chlor 250 mls @ 8 mls/hr 08/25/16 17:04 08/27/16 03 :39 Fent/Bupiv 2 Mcg/0.125% EP 8 mls/hr .[id number] PRN Administration PAIN Protocol Fluconazole 100 mls @ 100 mls/hr 08/28/16 09:00 08/28/16 10:40 Diflucan 200 Mg/100 Ml IV 08/30/16 08:59 100 mls/hr DAILY DORIS Administration Piperacillin Sod/Tazobactam 100 mls @ 200 mls/hr 08/27/16 21:00 08/28/16 23:54 Sod 4.5 gm/ Sodium Chloride IV 200 mls/hr Q6H DORIS Administration Vancomycin HCl 1 gm/ Sodium 250 mls @ 167 mls/hr 08/27/16 21:00 08/28/16 21:16 Chloride IV 167 mls/hr Q12H DORIS Administration Acetaminophen 100 mls @ 400 mls/hr 08/28/16 21:00 08/28/16 20:02 Ofirmev IV 400 mls/hr BID DORIS Administration Magnesium Oxide 400 mg 08/28/16 21:00 08/28/16 20:07 Mag Ox PO 08/30/16 20:59 400 mg BID DORIS Administration Nicotine 1 patch 08/24/16 09:00 08/28/16 10:29 Nicoderm TOP 1 patch DAILY DORIS Administration Oxycodone/Acetaminophen 1 tab 08/28/16 11:29 08/28/16 23:50 Percocet 5 Mg/325 Mg PO 1 tab Q4HR PRN Administration PAIN Pantoprazole Sodium 40 mg 08/25/16 18:00 08/28/16 06:38 Protonix IVP 40 mg QDAC DORIS Administration Phenol/Menthol 1 sprays 08/24/16 00:25 08/25/16 22:03 Chloraseptic MM 1 sprays Q2HR PRN Administration Throat Pain Sodium Chloride 10 ml 08/24/16 00:25 08/26/16 18:37 Normal Saline Flush 0.9% IVP 10 ml PRN PRN Administration NEEDED PER PROVIDER ORDERS Sodium Chloride 10 ml 08/24/16 06:00 08/28/16 20:10 Normal Saline Flush 0.9% IVP 10 ml Q8HR DORIS Administration Throat Lozenges 1 lozenge 08/25/16 15:31 08/25/16 18:42 Cepacol MM 1 lozenge Q2HR PRN Administration Mouth Sore Pain - Physical Exam Wound/Incisions: positive: Healing well General Appearance: positive: No acute distress, Alert Eyes Bilateral: positive: EOMI ENT: positive: No signs of dehydration Neck: positive: Trachea midline Respiratory: positive: Breath sounds nml. negative: Wheezes, Rales, Rhonchi Cardiovascular: positive: Regular rate & rhythm Abdomen: positive: Tenderness (+BS, soft, distended upper abdomen, Mild TTP, no rebound or guarding.) Skin: positive: Warm, Dry Extremities: positive: Nml appearance, No pedal edema. negative: Calf tenderness, Lan's sign/cords Neurologic/Psychiatric: positive: Oriented x3, CN's nml (2-12) Impression/Plan - Problem List Problem List: 51 yo female s/p Laparoscopic appendectomy and extensive GABRIEL POD#6, s/p laparoscopy and segmental bowel resection POD#4 Will make NPO for now weight gain since admission- 14 kg- lasix given Constipation - will give glycerin will continue all other medications Medicine on case appreciated
--- NOTE | 2016-08-29 04:57 | XRAY Preliminary Report ---
Exam: XR Chest 2 View PA/LAT IMPRESSION: 1. Bibasilar atelectasis or infiltrate and small pleural effusions. Findings are worse on the left. [facility] SITE ID: [id number]
--- NOTE | 2016-08-29 04:59 | XRAY Report ---
EXAM: CHEST RADIOGRAPHY EXAM DATE: 08/29/2016 04:45 AM. CLINICAL HISTORY: Cough. COMPARISON: 08/27/2016. TECHNIQUE: 2 views. FINDINGS: Lungs/Pleura: Bibasilar atelectasis or infiltrate, left greater than right. Small pleural effusions, left greater than right. Mediastinum: Heart and mediastinal contours are unremarkable. Other: None. IMPRESSION: 1. Bibasilar atelectasis or infiltrate and small pleural effusions. Findings are worse on the left. SHANIKAA Referring Provider Line: [phone] SITE ID: [id number]
[2016-08-29] MEDS ORDERED: KETOROLAC 30 MG/ML VIAL IVP SCH (05:00)
--- NOTE | 2016-08-29 05:00 | XRAY Preliminary Report ---
Exam: XR Abdomen 2 View IMPRESSION: 1. Mildly dilated small bowel loops with air-fluid levels. Moderate gas and stool in the colon. Findi ngs may represent ileus. Early, partial, or intermittent small bowel obstruction not entirely exclude d. 2. Postoperative changes. [facility] SITE ID: [id number]
--- NOTE | 2016-08-29 05:03 | XRAY Report ---
EXAM: ABDOMEN RADIOGRAPHY EXAM DATE: 08/29/2016 04:44 AM. CLINICAL HISTORY: Distention/abdominal pain. COMPARISON: None. TECHNIQUE: 2 views. FINDINGS: Lung Bases: Bibasilar atelectasis or infiltrate and small effusions, left greater than right. Bowel Gas Pattern: Moderate gas in the colon. There are some mildly dilated small bowel loops. A few air-fluid levels are seen. Free Air: None. Other: Postoperative changes. IMPRESSION: 1. Mildly dilated small bowel loops with air-fluid levels. Moderate gas and stool in the colon. Findi ngs may represent ileus. Early, partial, or intermittent small bowel obstruction not entirely exclude d. 2. Postoperative changes. SHANIKAA Referring Provider Line: [phone] SITE ID: [id number]
[2016-08-29] MEDS: SODIUM CHLORIDE FLUSH 0.9% 10 ML SYRINGE IVP SCH ×3 (05:27→20:17)
[2016-08-29] MEDS: PIPERACILLIN/TAZOBACTAM 4.5 GM in SODIUM CHLORIDE 0.9% MINIBAG 100 ML IV SCH ×4 (05:27→23:58)
[2016-08-29] MEDS: PANTOPRAZOLE 40 MG VIAL IVP SCH (05:34)
[2016-08-29] MEDS ORDERED: HEPARIN 5,000 UNIT/ML VIAL SUBQ SCH (06:00)
[2016-08-29 06:05] LABS: CALCIUM 8.5 mg/dL (8.5-10.3); CREATININE 0.6 mg/dL (0.4-1.0); MAGNESIUM 1.7 mg/dL (1.7-2.8); PHOSPHORUS 2.2 mg/dL (2.5-4.6); POTASSIUM 3.1 mmol/L (3.5-5.0)
[2016-08-29 06:17] LABS: BASOPHILS % (AUTO) 0.3 %; EOSINOPHILS # (AUTO) 0.4 10^3/uL (0.0-0.7); EOSINOPHILS % (AUTO) 3.6 %; HCT - HEMATOCRIT 37.7 % (37.0-47.0); HGB - HEMOGLOBIN 12.5 g/dL (12.0-16.0); LYMPHOCYTES # (AUTO) 0.9 10^3/uL (1.5-3.5); LYMPHOCYTES % (AUTO) 7.9 %; MEAN CORPUSCULAR HEMOGLOBIN 30.3 pg (27.0-31.0); MEAN CORPUSCULAR HGB CONC 33.1 g/dL (32.0-36.0); MEAN CORPUSCULAR VOLUME 91.5 fL (81.0-99.0); MEAN PLATELET VOLUME 8.7 fL (7.9-10.8); MONOCYTES # (AUTO) 0.8 10^3/uL (0.0-1.0); MONOCYTES % (AUTO) 6.8 %; NEUTROPHILS # (AUTO) 9.5 10^3/uL (1.5-6.6); NEUTROPHILS % (AUTO) 81.4 %; RED BLOOD COUNT 4.12 10^6/uL (4.20-5.40); RED CELL DISTRIBUTION WIDTH 13.8 % (12.0-15.0); UNCORRECTED WHITE BLOOD COUNT 11.7 x10^3/uL; WHITE BLOOD COUNT 11.7 x10^3/uL (4.8-10.8)
[2016-08-29] MEDS: ACETAMINOPHEN 1,000 MG/100 ML 100 ML IV SCH (08:59)
[2016-08-29] MEDS: FLUCONAZOLE 200 MG/100 ML 100 ML IV SCH (09:06)
[2016-08-29] MEDS: VANCOMYCIN INJ 1 GM in SODIUM CHLORIDE 0.9% 250 ML IV SCH (09:06)
[2016-08-29] MEDS: POLYETHYLENE GLYCOL 3350 17 GM PACKET PO SCH (09:07)
[2016-08-29] MEDS: MULTIVITAMIN W/MINERALS TABLET PO SCH (09:07)
[2016-08-29] MEDS: PROPRANOLOL 40 MG TABLET PO SCH ×2 (09:07→20:07)
[2016-08-29] MEDS: DOCUSATE SODIUM 250 MG CAPSULE PO SCH (09:07)
[2016-08-29] MEDS: MAGNESIUM OXIDE 400 MG TABLET PO SCH ×2 (09:08→20:07)
[2016-08-29] MEDS: NICOTINE 14 MG PATCH TOP SCH (09:08)
[2016-08-29] MEDS: HEPARIN 5,000 UNIT/ML VIAL SUBQ SCH ×2 (09:09→20:07)
[2016-08-29] MEDS ORDERED: POTASSIUM CHLORIDE 20 MEQ TABLET PO SCH (09:24)
[2016-08-29] MEDS ORDERED: NEUTRA-PHOS 250 MG TABLET PO SCH ×2 (10:30→17:00)
--- NOTE | 2016-08-29 10:50 | PROVIDER PROGRESS NOTE ---
Subjective - Prog Note Date Prog Note Date: 08/29/16 Prog Note Time: 10:48 - Subjective Pt reports feeling: Improved (epidural out yesterday, peralta out had some pain last night , but MARKED reduced pain after had large BM reaching 750-1000 on IS , said she used it alot yesterday) Subjective: up to chair and walked in halls yesterday Current Medications - Current Medications Current Medications: Active Medications Generic Name Dose Route Start Last Admin Trade Name Freq PRN Reason Stop Dose Admin Diphenhydramine HCl 12.5 - 25 mg 08/25/16 16:56 08/28/16 12:35 Benadryl Inj IV 25 mg Q6H PRN Administration PRURITIS Docusate Sodium 250 - 500 mg 08/29/16 09:00 08/29/16 09:07 Colace 250mg Capsule PO 250 mg DAILY DORIS Administration Heparin Sodium (Porcine) 5,000 unit 08/29/16 09:00 08/29/16 09:09 SUBQ 5,000 unit Q12H DORIS Administration Fentanyl/Bupivacaine/Sodium Chlor 250 mls @ 8 mls/hr 08/25/16 17:04 08/27/16 03 :39 Fent/Bupiv 2 Mcg/0.125% EP 8 mls/hr .[id number] PRN Administration PAIN Protocol Fluconazole 100 mls @ 100 mls/hr 08/28/16 09:00 08/29/16 09:06 Diflucan 200 Mg/100 Ml IV 08/30/16 08:59 100 mls/hr DAILY DORIS Administration Piperacillin Sod/Tazobactam 100 mls @ 200 mls/hr 08/27/16 21:00 08/29/16 05:27 Sod 4.5 gm/ Sodium Chloride IV 200 mls/hr Q6H DORIS Administration Acetaminophen 100 mls @ 400 mls/hr 08/28/16 21:00 08/29/16 08:59 Ofirmev IV 400 mls/hr BID DORIS Administration Ketorolac Tromethamine 30 mg 08/29/16 05:00 08/29/16 05:27 Toradol Inj IVP 09/03/16 04:59 30 mg ONCE DORIS Administration Magnesium Oxide 400 mg 08/28/16 21:00 08/29/16 09:08 Mag Ox PO 08/30/16 20:59 400 mg BID DORIS Administration Multivitamins/Minerals 1 tab 08/29/16 08:00 08/29/16 09:07 Theragran M PO 1 tab DAILYWM DORIS Administration Nalbuphine HCl 2.5 - 5 mg 08/25/16 16:56 Nubain IVP Q4HR PRN PRUTITIS Nicotine 1 patch 08/24/16 09:00 08/29/16 09:08 Nicoderm TOP 1 patch DAILY DORIS Administration Oxycodone/Acetaminophen 1 tab 08/28/16 11:29 08/28/16 23:50 Percocet 5 Mg/325 Mg PO 1 tab Q4HR PRN Administration PAIN Pantoprazole Sodium 40 mg 08/25/16 18:00 08/29/16 05:34 Protonix IVP 40 mg QDAC DORIS Administration Phenol/Menthol 1 sprays 08/24/16 00:25 08/25/16 22:03 Chloraseptic MM 1 sprays Q2HR PRN Administration Throat Pain Polyethylene Glycol 17 gm 08/29/16 09:00 08/29/16 09:07 Miralax PO 17 gm DAILY DORIS Administration Potassium Chloride 20 meq 08/29/16 09:24 K-Dur PO 08/29/16 13:01 Q4HR DORIS Propranolol HCl 40 mg 08/29/16 09:00 08/29/16 09:07 Inderal PO 40 mg BID DORIS Administration Sodium Chloride 10 ml 08/24/16 00:25 08/26/16 18:37 Normal Saline Flush 0.9% IVP 10 ml PRN PRN Administration NEEDED PER PROVIDER ORDERS Sodium Chloride 10 ml 08/24/16 06:00 08/29/16 05:27 Normal Saline Flush 0.9% IVP 10 ml Q8HR DORIS Administration Sodium Phosphate 250 mg 08/29/16 10:30 K-Phos Neutral PO 08/31/16 10:29 TIDWM DORIS Throat Lozenges 1 lozenge 08/25/16 15:31 08/25/16 18:42 Cepacol MM 1 lozenge Q2HR PRN Administration Mouth Sore Pain Propranolol HCl [Inderal LA] 120 mg PO DAILY 08/23/16 Objective - Vital Signs/Intake & Output Reviewed Vital Signs: Yes Vital Signs: afebrile, T max of 39.2 was still 48 hrs ago Intake & Output: Intake & Output 08/26/16 08/27/16 08/28/16 08/29/16 23:59 23:59 23:59 23:59 Intake Total 3075 2090 4982 120 Output Total 2368 1460 4050 2550 Balance 705 336 725 -9167 - Objective General Appearance: positive: No acute distress, Other (lying in bed talking on phone when first seen ~ 10:30, awake, lying on side, NAD skin a bit clammy but she atributes to fleece blanket and plastic mattress) Eyes Bilateral: positive: EOMI Respiratory: positive: Other (unlabored respirations RA 93% Very reduced breath sounds L base w/ e>a changes) Cardiovascular: positive: Regular rate & rhythm, No murmur Abdomen: positive: Nml bowel sounds, Other (less rounded than yesterday, clean dressing, GABRIEL w/ scant serosang drainage). negative: Tenderness Skin: positive: Warm, Dry (except slightly diaphroetic back skin ; just took off fleece blanket) Neurologic/Psychiatric: positive: Oriented x3, Mood/affect nml - Lab Results Fish Bones: 09/01/16 06:26 09/01/16 06:26 Other Labs: Lab Results x24hrs 08/29/16 08/29/16 08/28/16 Range/Units 05:36 05:36 17:06 WBC 11.7 H (4.8-10.8) x10^3/uL RBC 4.12 L (4.20-5.40) 10^6/uL Hgb 12.5 (12.0-16.0) g/dL Hct 37.7 (37.0-47.0) % MCV 91.5 (81.0-99.0) fL MCH 30.3 (27.0-31.0) pg MCHC 33.1 (32.0-36.0) g/dL RDW 13.8 (12.0-15.0) % Plt Count 273 (130-450) 10^3/uL MPV 8.7 (7.9-10.8) fL Neut # 9.5 H (1.5-6.6) 10^3/uL Lymph # 0.9 L (1.5-3.5) 10^3/uL [place] # 0.8 (0.0-1.0) 10^3/uL Eos # 0.4 (0.0-0.7) 10^3/uL Baso # 0.0 (0.0-0.1) 10^3/uL Absolute Nucleated RBC 0.00 x10^3/uL Nucleated RBCs 0.0 /100WBC Sodium 137 136 (135-145) mmol/L Potassium 3.1 L 3.3 L (3.5-5.0) mmol/L Chloride 99 L 101 (101-111) mmol/L Carbon Dioxide 29 27 (21-32) mmol/L Anion Gap 9.0 8.0 (6-13) BUN 6 8 (6-20) mg/dL Creatinine 0.6 0.6 (0.4-1.0) mg/dL Estimated GFR (MDRD) 106 106 (>89) Glucose 110 H 82 (70-100) mg/dL Calcium 8.5 8.2 L (8.5-10.3) mg/dL Phosphorus 2.2 L (2.5-4.6) mg/dL Magnesium 1.7 (1.7-2.8) mg/dL 08/28/16 Range/Units 17:06 WBC 10.1 (4.8-10.8) x10^3/uL RBC 3.73 L (4.20-5.40) 10^6/uL Hgb 11.4 L (12.0-16.0) g/dL Hct 34.5 L (37.0-47.0) % MCV 92.5 (81.0-99.0) fL MCH 30.7 (27.0-31.0) pg MCHC 33.2 (32.0-36.0) g/dL RDW 13.5 (12.0-15.0) % Plt Count 240 (130-450) 10^3/uL MPV 9.0 (7.9-10.8) fL Neut # 7.9 H (1.5-6.6) 10^3/uL Lymph # 1.1 L (1.5-3.5) 10^3/uL [place] # 0.7 (0.0-1.0) 10^3/uL Eos # 0.4 (0.0-0.7) 10^3/uL Baso # 0.0 (0.0-0.1) 10^3/uL Absolute Nucleated RBC 0.01 x10^3/uL Nucleated RBCs 0.1 /100WBC Sodium (135-145) mmol/L Potassium (3.5-5.0) mmol/L Chloride (101-111) mmol/L Carbon Dioxide (21-32) mmol/L Anion Gap (6-13) BUN (6-20) mg/dL Creatinine (0.4-1.0) mg/dL Estimated GFR (MDRD) (>89) Glucose (70-100) mg/dL Calcium (8.5-10.3) mg/dL Phosphorus (2.5-4.6) mg/dL Magnesium (1.7-2.8) mg/dL Assessment/Plan - Problem List (1) Postoperative fever Impression: 08/29; cultures still NGTD, on repeat CXR after frequent and increased IS use yesterday, still "infiltrate vs atelectasis. Effusion as well also noted on exam w/ absent L base sounds also clouding picture a bit afebrile, no oxygen requirement day 2 of change to zosyn, per Dr. Luz, no new gut source suspect and surgical site incision clean low suspician for MRSA - will d/c vanco continue to tx as possible early pneumonia, pleural effusion could be parapneumonic, but with IV volume wt up (got lasix), more likl 3rd spaced once changed to po, could use augmentin 08/28no recurrent fever since 2p yesterday hemodynamically stable chest exam unremarkable today, 99% RA ERtapenem was changed to zosyn, vanco extensive w/u neg thus far, blood cx NGTD Infiltrates on pulm imaging "infiltrate vs atelectasis" will recheck CXR in am, if no clear infiltrate after ~ 48 hr IS use, can d/c vanc (2) GERD (gastroesophageal reflux disease) Impression: no indication for IV PPI, since taking PO, could change to PO protonix once daily (4) Tobacco use Impression: nicoderm patch on
[2016-08-29] MEDS: IBUPROFEN 400 MG TABLET PO SCH ×2 (14:47→21:05)
[2016-08-29] MEDS: oxyCOD/ACETAMIN 5 MG/325 MG TABLET PO PRN ×2 (16:18→20:07)
[2016-08-29] MEDS ORDERED: POTASSIUM CHLORIDE 20 MEQ TABLET PO ONE (17:00)
[2016-08-29 19:12] LABS: CALCIUM 8.3 mg/dL (8.5-10.3); CREATININE 1.1 mg/dL (0.4-1.0); MAGNESIUM 1.9 mg/dL (1.7-2.8); PHOSPHORUS 4.1 mg/dL (2.5-4.6); POTASSIUM 3.7 mmol/L (3.5-5.0)
[2016-08-29] MEDS ORDERED: SODIUM CHLORIDE 0.9% 1,000 ML IV SCH (22:00)
[2016-08-30] MEDS ORDERED: DEXTROSE 5%-0.45% NACL 1,000 ML IV SCH
[2016-08-30 04:54] LABS: BASOPHILS % (AUTO) 0.4 %; EOSINOPHILS # (AUTO) 0.4 10^3/uL (0.0-0.7); EOSINOPHILS % (AUTO) 3.6 %; HCT - HEMATOCRIT 32.5 % (37.0-47.0); HGB - HEMOGLOBIN 10.8 g/dL (12.0-16.0); LYMPHOCYTES # (AUTO) 1.3 10^3/uL (1.5-3.5); LYMPHOCYTES % (AUTO) 10.5 %; MEAN CORPUSCULAR HEMOGLOBIN 30.2 pg (27.0-31.0); MEAN CORPUSCULAR HGB CONC 33.3 g/dL (32.0-36.0); MEAN CORPUSCULAR VOLUME 90.6 fL (81.0-99.0); MEAN PLATELET VOLUME 8.3 fL (7.9-10.8); MONOCYTES # (AUTO) 1.2 10^3/uL (0.0-1.0); MONOCYTES % (AUTO) 9.8 %; NEUTROPHILS # (AUTO) 9.1 10^3/uL (1.5-6.6); NEUTROPHILS % (AUTO) 75.7 %; RED BLOOD COUNT 3.59 10^6/uL (4.20-5.40); RED CELL DISTRIBUTION WIDTH 13.9 % (12.0-15.0)
[2016-08-30 05:04] LABS: CALCIUM 8.3 mg/dL (8.5-10.3); CREATININE 1.4 mg/dL (0.4-1.0); MAGNESIUM 1.9 mg/dL (1.7-2.8); PHOSPHORUS 3.7 mg/dL (2.5-4.6); POTASSIUM 3.4 mmol/L (3.5-5.0)
[2016-08-30] MEDS: SODIUM CHLORIDE FLUSH 0.9% 10 ML SYRINGE IVP SCH ×3 (05:42→21:59)
[2016-08-30] MEDS: PIPERACILLIN/TAZOBACTAM 4.5 GM in SODIUM CHLORIDE 0.9% MINIBAG 100 ML IV SCH (05:43)
[2016-08-30] MEDS: oxyCOD/ACETAMIN 5 MG/325 MG TABLET PO PRN ×3 (06:21→21:18)
[2016-08-30] MEDS ORDERED: PANTOPRAZOLE 40 MG TABLET PO SCH (07:00)
[2016-08-30] MEDS: DOCUSATE SODIUM 250 MG CAPSULE PO SCH (08:33)
[2016-08-30] MEDS: MULTIVITAMIN W/MINERALS TABLET PO SCH (08:33)
[2016-08-30] MEDS: POLYETHYLENE GLYCOL 3350 17 GM PACKET PO SCH (08:34)
[2016-08-30] MEDS: PROPRANOLOL 40 MG TABLET PO SCH ×2 (08:34→21:18)
[2016-08-30] MEDS: HEPARIN 5,000 UNIT/ML VIAL SUBQ SCH ×2 (08:47→21:18)
[2016-08-30] MEDS: NICOTINE 14 MG PATCH TOP SCH (08:48)
[2016-08-30] MEDS ORDERED: IBUPROFEN 400 MG TABLET PO SCH (09:00)
[2016-08-30] MEDS: SODIUM CHLORIDE 0.9% 1,000 ML IV SCH ×3 (13:33→23:03)
[2016-08-30] MEDS: AMPICILLIN/SULBACTAM 1.5 GM in SODIUM CHLORIDE 0.9% MINIBAG 100 ML IV SCH ×2 (13:49→21:58)
[2016-08-30] MEDS ORDERED: ONDANSETRON 4 MG/2 ML VIAL ONE (14:43)
[2016-08-30] MEDS: ONDANSETRON 4 MG/2 ML VIAL IVP PRN (14:46)
[2016-08-30] MEDS ORDERED: HYDROmorphone 1 MG/ML SYRINGE IVP SCH (15:00)
--- NOTE | 2016-08-30 18:45 | PROVIDER PROGRESS NOTE ---
Subjective - General Admit Date: 08/24/16 Procedure Date: 08/25/16 Post Op Days: 5 Procedure Performed: Laparoscopy, segmental bowel resection POD#5 LAP APPY GABRIEL POD#7 - Review of Systems Wound/Incisions: positive: Healing well General: positive: No symptoms, Weakness HEENT: positive: No symptoms Pulmonary: positive: No symptoms, Shortness of breath Cardiovascular: positive: No symptoms Gastrointestinal: positive: Abdominal pain (Post op appropriate) Genitourinary: positive: No symptoms Musculoskeletal: positive: No symptoms Skin: positive: No symptoms Psychiatric: positive: No symptoms All Other Systems: positive: Reviewed and negative - Other Other Information/Narrative: Patient seen at bedside. Had sSBFT today with completeion tomorrow. 1 episode of vomiting. Ambulating, Using IS. Good urine Objective - Patient Data Reviewed Vital Signs: Yes Vital Signs: Vital Signs x48h Temp Pulse Resp BP Pulse Ox 08/30/16 16:40 36.9 C 96 18 132/85 H 93 Weight: Weight 08/28/16 08/29/16 08/30/16 23:59 23:59 23:59 Weight (kg) 87.5 kg 85.2 kg Intake & Output: Intake and Output Totals x24h 08/28/16 08/29/16 08/30/16 23:59 23:59 23:59 Intake Total 4982 2528 858 Output Total 4050 3660 1250 Balance 932 -1132 -392 - Lab Results Lab Results: 08/30/16 04:43 08/30/16 04:43 Other Lab Results: Lab Results x24hrs 08/30/16 08/30/16 08/29/16 Range/Units 04:43 04:43 18:55 WBC 12.0 H (4.8-10.8) x10^3/uL RBC 3.59 L (4.20-5.40) 10^6/uL Hgb 10.8 L (12.0-16.0) g/dL Hct 32.5 L (37.0-47.0) % MCV 90.6 (81.0-99.0) fL MCH 30.2 (27.0-31.0) pg MCHC 33.3 (32.0-36.0) g/dL RDW 13.9 (12.0-15.0) % Plt Count 272 (130-450) 10^3/uL MPV 8.3 (7.9-10.8) fL Neut # 9.1 H (1.5-6.6) 10^3/uL Lymph # 1.3 L (1.5-3.5) 10^3/uL [place] # 1.2 H (0.0-1.0) 10^3/uL Eos # 0.4 (0.0-0.7) 10^3/uL Baso # 0.0 (0.0-0.1) 10^3/uL Absolute Nucleated RBC 0.00 x10^3/uL Nucleated RBCs 0.0 /100WBC Sodium 141 139 (135-145) mmol/L Potassium 3.4 L 3.7 (3.5-5.0) mmol/L Chloride 101 100 L (101-111) mmol/L Carbon Dioxide 31 30 (21-32) mmol/L Anion Gap 9.0 9.0 (6-13) BUN 8 8 (6-20) mg/dL Creatinine 1.4 H 1.1 H (0.4-1.0) mg/dL Estimated GFR (MDRD) 40 L 53 L (>89) Glucose 103 H 113 H (70-100) mg/dL Calcium 8.3 L 8.3 L (8.5-10.3) mg/dL Phosphorus 3.7 4.1 (2.5-4.6) mg/dL Magnesium 1.9 1.9 (1.7-2.8) mg/dL - Current Medications Current Medications: Current Medications Generic Name Dose Route Start Last Admin Trade Name Freq PRN Reason Stop Dose Admin Diphenhydramine HCl 12.5 - 25 mg 08/25/16 16:56 08/28/16 12:35 Benadryl Inj IV 25 mg Q6H PRN Administration PRURITIS Docusate Sodium 250 - 500 mg 08/29/16 09:00 08/30/16 08:33 Colace 250mg Capsule PO Not Given DAILY DORIS Heparin Sodium (Porcine) 5,000 unit 08/29/16 09:00 08/30/16 08:47 SUBQ 5,000 unit Q12H DORIS Administration Fentanyl/Bupivacaine/Sodium Chlor 250 mls @ 8 mls/hr 08/25/16 17:04 08/27/16 03 :39 Fent/Bupiv 2 Mcg/0.125% EP 8 mls/hr .[id number] PRN Administration PAIN Protocol Sodium Chloride 1,000 mls @ 125 mls/hr 08/30/16 12:00 08/30/16 13:34 Normal Saline 0.9% IV 125 mls/hr .Q8H DORIS Administration Ampicillin Sodium/Sulbactam 100 mls @ 200 mls/hr 08/30/16 14:00 08/30/16 13:49 Sodium 1.5 gm/ Sodium Chloride IV 200 mls/hr Q8H DORIS Administration Multivitamins/Minerals 1 tab 08/29/16 08:00 08/30/16 08:33 Theragran M PO Not Given DAILYWM [facility] Nicotine 1 patch 08/24/16 09:00 08/30/16 08:48 Nicoderm TOP 1 patch DAILY DORIS Administration Ondansetron HCl 4 mg 08/30/16 14:39 08/30/16 14:46 Zofran Inj IVP 4 mg Q6HR PRN Administration Nausea / Vomiting Oxycodone/Acetaminophen 1 tab 08/29/16 21:30 08/30/16 13:37 Percocet 5 Mg/325 Mg PO 1 tab Q6HR PRN Administration PAIN Phenol/Menthol 1 sprays 08/24/16 00:25 08/25/16 22:03 Chloraseptic MM 1 sprays Q2HR PRN Administration Throat Pain Polyethylene Glycol 17 gm 08/29/16 09:00 08/30/16 08:34 Miralax PO Not Given DAILY DORIS Propranolol HCl 40 mg 08/29/16 09:00 08/30/16 08:34 Inderal PO Not Given BID [facility] Sodium Chloride 10 ml 08/24/16 00:25 08/26/16 18:37 Normal Saline Flush 0.9% IVP 10 ml PRN PRN Administration NEEDED PER PROVIDER ORDERS Sodium Chloride 10 ml 08/24/16 06:00 08/30/16 13:50 Normal Saline Flush 0.9% IVP 10 ml Q8HR DORIS Administration Throat Lozenges 1 lozenge 08/25/16 15:31 08/25/16 18:42 Cepacol MM 1 lozenge Q2HR PRN Administration Mouth Sore Pain - Physical Exam Wound/Incisions: positive: Drainage (serous via trocar site scant) General Appearance: positive: No acute distress Eyes Bilateral: positive: EOMI ENT: positive: No signs of dehydration Neck: positive: No JVD Respiratory: positive: Breath sounds nml Cardiovascular: positive: Regular rate & rhythm Abdomen: positive: No distention (+BS, soft, hypoactive) Skin: positive: Warm, Dry Extremities: positive: Nml appearance Neurologic/Psychiatric: positive: Oriented x3, CN's nml (2-12) Impression/Plan - Problem List Problem List: 51 yo female POD#6 Laparoscopic appendectomy with Extensive Lysis of adhesions POD#7, Segmental Bowel resection POD#5 elevated creatinine, hypokalemia Continue IV ABX Advance diet as tolerated Continue pain control Medical team on case appreciated Iv hydration AM labs
[2016-08-30] MEDS ORDERED: PROCHLORPERAZINE 5 MG TABLET PO PRN (18:51)
[2016-08-30] MEDS ORDERED: POTASSIUM CHLORIDE 20 MEQ TABLET PO SCH (19:00)
--- NOTE | 2016-08-30 19:18 | PROVIDER PROGRESS NOTE ---
Subjective - Prog Note Date Prog Note Date: 08/30/16 Prog Note Time: 19:16 (late entry seen ~ 2pm) - Subjective Pt reports feeling: Improved ("have to go back for more pictures b/c its moving slow " (the SBFT) voiding w/o difficulty, still reaching ~ 750-1000 cc on IS, no cough, no SOB, wasnt up OOB much today b/c off floor for the SBFT. was up in halls yesterday) Current Medications - Current Medications Current Medications: Active Medications Generic Name Dose Route Start Last Admin Trade Name Freq PRN Reason Stop Dose Admin Diphenhydramine HCl 12.5 - 25 mg 08/25/16 16:56 08/28/16 12:35 Benadryl Inj IV 25 mg Q6H PRN Administration PRURITIS Docusate Sodium 250 - 500 mg 08/29/16 09:00 08/30/16 08:33 Colace 250mg Capsule PO Not Given DAILY DORIS Heparin Sodium (Porcine) 5,000 unit 08/29/16 09:00 08/30/16 08:47 SUBQ 5,000 unit Q12H DORIS Administration Fentanyl/Bupivacaine/Sodium Chlor 250 mls @ 8 mls/hr 08/25/16 17:04 08/27/16 03 :39 Fent/Bupiv 2 Mcg/0.125% EP 8 mls/hr .[id number] PRN Administration PAIN Protocol Sodium Chloride 1,000 mls @ 125 mls/hr 08/30/16 12:00 08/30/16 13:34 Normal Saline 0.9% IV 125 mls/hr .Q8H DORIS Administration Ampicillin Sodium/Sulbactam 100 mls @ 200 mls/hr 08/30/16 14:00 08/30/16 13:49 Sodium 1.5 gm/ Sodium Chloride IV 200 mls/hr Q8H DORIS Administration Multivitamins/Minerals 1 tab 08/29/16 08:00 08/30/16 08:33 Theragran M PO Not Given DAILYWM DORIS Nalbuphine HCl 2.5 - 5 mg 08/25/16 16:56 Nubain IVP Q4HR PRN PRUTITIS Nicotine 1 patch 08/24/16 09:00 08/30/16 08:48 Nicoderm TOP 1 patch DAILY DORIS Administration Ondansetron HCl 4 mg 08/30/16 14:39 08/30/16 14:46 Zofran Inj IVP 4 mg Q6HR PRN Administration Nausea / Vomiting Oxycodone/Acetaminophen 1 tab 08/29/16 21:30 08/30/16 13:37 Percocet 5 Mg/325 Mg PO 1 tab Q6HR PRN Administration PAIN Phenol/Menthol 1 sprays 08/24/16 00:25 08/25/16 22:03 Chloraseptic MM 1 sprays Q2HR PRN Administration Throat Pain Polyethylene Glycol 17 gm 08/29/16 09:00 08/30/16 08:34 Miralax PO Not Given DAILY DORIS Prochlorperazine Maleate 5 mg 08/30/16 18:51 Compazine PO Q6HR PRN Nausea / Vomiting Propranolol HCl 40 mg 08/29/16 09:00 08/30/16 08:34 Inderal PO Not Given BID DORIS Sodium Chloride 10 ml 08/24/16 00:25 08/26/16 18:37 Normal Saline Flush 0.9% IVP 10 ml PRN PRN Administration NEEDED PER PROVIDER ORDERS Sodium Chloride 10 ml 08/24/16 06:00 08/30/16 13:50 Normal Saline Flush 0.9% IVP 10 ml Q8HR DORIS Administration Throat Lozenges 1 lozenge 08/25/16 15:31 08/25/16 18:42 Cepacol MM 1 lozenge Q2HR PRN Administration Mouth Sore Pain Propranolol HCl [Inderal LA] 120 mg PO DAILY 08/23/16 Objective - Vital Signs/Intake & Output Reviewed Vital Signs: Yes Vital Signs: Vital Signs x48h Temp Pulse Resp BP Pulse Ox 08/30/16 16:40 36.9 C 96 18 132/85 H 93 Intake & Output: Intake & Output 08/27/16 08/28/16 08/29/16 08/30/16 23:59 23:59 23:59 23:59 Intake Total 2090 9158 3402 854 Output Total 1460 4050 3660 1250 Balance 630 932 -1132 -392 - Objective General Appearance: positive: No acute distress, Other (sleeping when I entered , easily aroused, animated, likes my cold hands on her forehead) Respiratory: positive: No respiratory distress, Other (unlabored respirations at rest, not needing 02 93-94% on RA, still decreased Left base, but was essentially absent left base 08/29. I hear better air movement bases today) Cardiovascular: positive: Regular rate & rhythm, No murmur, Other (NO peripheral edema of LE's, wearing TEDS) Abdomen: positive: Nml bowel sounds, Other (a bit more distended than yesterday , dressings D/I) Skin: positive: Warm, Dry. negative: Cyanosis Extremities: positive: No pedal edema Neurologic/Psychiatric: positive: Mood/affect nml - Lab Results Fish Bones: 08/30/16 04:43 08/30/16 04:43 Other Labs: Lab Results x24hrs 08/30/16 08/30/16 Range/Units 04:43 04:43 WBC 12.0 H (4.8-10.8) x10^3/uL RBC 3.59 L (4.20-5.40) 10^6/uL Hgb 10.8 L (12.0-16.0) g/dL Hct 32.5 L (37.0-47.0) % MCV 90.6 (81.0-99.0) fL MCH 30.2 (27.0-31.0) pg MCHC 33.3 (32.0-36.0) g/dL RDW 13.9 (12.0-15.0) % Plt Count 272 (130-450) 10^3/uL MPV 8.3 (7.9-10.8) fL Neut # 9.1 H (1.5-6.6) 10^3/uL Lymph # 1.3 L (1.5-3.5) 10^3/uL [place] # 1.2 H (0.0-1.0) 10^3/uL Eos # 0.4 (0.0-0.7) 10^3/uL Baso # 0.0 (0.0-0.1) 10^3/uL Absolute Nucleated RBC 0.00 x10^3/uL Nucleated RBCs 0.0 /100WBC Sodium 141 (135-145) mmol/L Potassium 3.4 L (3.5-5.0) mmol/L Chloride 101 (101-111) mmol/L Carbon Dioxide 31 (21-32) mmol/L Anion Gap 9.0 (6-13) BUN 8 (6-20) mg/dL Creatinine 1.4 H (0.4-1.0) mg/dL Estimated GFR (MDRD) 40 L (>89) Glucose 103 H (70-100) mg/dL Calcium 8.3 L (8.5-10.3) mg/dL Phosphorus 3.7 (2.5-4.6) mg/dL Magnesium 1.9 (1.7-2.8) mg/dL Assessment/Plan - Problem List (1) Postoperative fever Impression: 08/30 we were treating empirically for possible post op pneumonia, LLL, and likely pleural effusions from 3rd spacing rather than parapneumonic afebrile, modest increase in WBC, but looks well clinically. changed to unasyn (see #3. ). Can change to po augmentin (could do trial off ABx as well if no further needs for abdominal coverage and reeval clinically. 08/29; cultures still NGTD, on repeat CXR after frequent and increased IS use yesterday, still "infiltrate vs atelectasis. Effusion as well also noted on exam w/ absent L base sounds also clouding picture a bit afebrile, no oxygen requirement day 2 of change to zosyn, per Dr. Luz, no new gut source suspect and surgical site incision clean low suspician for MRSA - will d/c vanco continue to tx as possible early pneumonia, pleural effusion could be parapneumonic, but with IV volume wt up (got lasix), more likl 3rd spaced once changed to po, could use augmentin 08/28no recurrent fever since 2p yesterday hemodynamically stable chest exam unremarkable today, 99% RA ERtapenem was changed to zosyn, vanco extensive w/u neg thus far, blood cx NGTD Infiltrates on pulm imaging "infiltrate vs atelectasis" will recheck CXR in am, if no clear infiltrate after ~ 48 hr IS use, can d/c vanc 2) POD#6 Laparoscopic appendectomy with Extensive Lysis of adhesions POD#7, Segmental Bowel resection per Dr Humphrey today: Continue IV ABX (changed to Unasyn due to RENNY; see below) Advance diet as tolerated Continue pain control Medical team on case appreciated Iv hydration AM labs 3) Acute kidney injury Cr 0.6>>1.1 (after IV Lasix early 08/29) >>> 1.4 today suspect multifactorial, hypoalbuminemic, likely reduced intravasc volume ( although bP ok), and toradol d/c'd ,possible contribution of vanc/zosyn combo that can >>RENYN ; stopped vanco 08/29, stopping zosyn today as relatively low suspician for acute pulm process getting IVF at 125 recheck UA in am (expect the microscopic hematuria should be improved/ peralta out if not improved send lytes for FENA but suspect it will improve. rajesh little contribution of the IV contrast (but she was on the NSAID, and sl volume deplete) Dr Zarate indicated still needed Abx until SBFT complete switched to renal dose unasyn ; (2) GERD (gastroesophageal reflux disease) Impression: no indication for IV PPI, since taking PO, could change to PO protonix once daily (4) Tobacco use Impression: nicoderm patch on
--- NOTE | 2016-08-30 20:41 | XRAY Preliminary Report ---
Exam: [place] Small Bowel Follow Through Impression: 1. There is moderate proximal to mid small bowel dilatation with oral contrast transit time to the co wili of 6 hours favoring ileus over partial obstruction. [facility] SITE ID: [id number]
--- NOTE | 2016-08-30 20:44 | XRAY Report ---
EXAM: SMALL BOWEL FOLLOW-THROUGH EXAM DATE: 08/30/2016 11:41 AM. CLINICAL HISTORY: Post op ileus vs partial sbo. COMPARISONS: 08/29/2016. TECHNIQUE: Routine small bowel follow-through technique. Fluoroscopy Time: Not performed. FINDINGS: Precontrast production recorder film of the abdomen demonstrates several moderately dilated mid abdominal small bow el loops. Following oral contrast administration, there is slow progression of contrast throughout th e small bowel. 6 hour film demonstrates moderate proximal to mid small bowel dilatation with relative normal distal small bowel caliber. Contrast however does reach the ascending colon. Impression: 1. There is moderate proximal to mid small bowel dilatation with oral contrast transit time to the co wili of 6 hours favoring ileus over partial obstruction. [facility] Referring Provider Line: [phone] SITE ID: [id number]
[2016-08-31 05:44] LABS: BASOPHILS # (AUTO) 0.1 10^3/uL (0.0-0.1); BASOPHILS % (AUTO) 0.8 %; EOSINOPHILS # (AUTO) 0.2 10^3/uL (0.0-0.7); EOSINOPHILS % (AUTO) 1.4 %; HCT - HEMATOCRIT 32.9 % (37.0-47.0); HGB - HEMOGLOBIN 10.9 g/dL (12.0-16.0); LYMPHOCYTES # (AUTO) 1.8 10^3/uL (1.5-3.5); MEAN CORPUSCULAR HEMOGLOBIN 30.4 pg (27.0-31.0); MEAN CORPUSCULAR HGB CONC 33.2 g/dL (32.0-36.0); MEAN CORPUSCULAR VOLUME 91.4 fL (81.0-99.0); MEAN PLATELET VOLUME 8.2 fL (7.9-10.8); MONOCYTES # (AUTO) 1.6 10^3/uL (0.0-1.0); MONOCYTES % (AUTO) 9.9 %; NEUTROPHILS # (AUTO) 12.6 10^3/uL (1.5-6.6); NEUTROPHILS % (AUTO) 76.9 %; NUCLEATED RED BLOOD CELLS AUTO 0.1 /100WBC; RED CELL DISTRIBUTION WIDTH 14.2 % (12.0-15.0); UNCORRECTED WHITE BLOOD COUNT 16.3 x10^3/uL; WHITE BLOOD COUNT 16.3 x10^3/uL (4.8-10.8)
[2016-08-31 05:52] LABS: CALCIUM 8.2 mg/dL (8.5-10.3); CREATININE 1.2 mg/dL (0.4-1.0); POTASSIUM 3.3 mmol/L (3.5-5.0)
[2016-08-31] MEDS: AMPICILLIN/SULBACTAM 1.5 GM in SODIUM CHLORIDE 0.9% MINIBAG 100 ML IV SCH ×3 (05:53→23:29)
[2016-08-31] MEDS: SODIUM CHLORIDE FLUSH 0.9% 10 ML SYRINGE IVP SCH ×3 (05:53→22:11)
[2016-08-31 06:14] LABS: NP AUTO DIFFERENTIAL? NO; NP MAN DIFFERENTIAL? YES; PLATELET ESTIMATE, MANUAL NORMAL (130-450,000) (NORMAL); PLATELET MORPHOLOGY 1+ LARGE PLATELETS (NORMAL)
[2016-08-31] MEDS: NICOTINE 14 MG PATCH TOP SCH (08:52)
[2016-08-31] MEDS: HEPARIN 5,000 UNIT/ML VIAL SUBQ SCH ×2 (08:53→22:10)
[2016-08-31] MEDS: PROPRANOLOL 40 MG TABLET PO SCH ×2 (08:54→23:04)
[2016-08-31] MEDS ORDERED: POTASSIUM CHLORIDE 20 MEQ TABLET PO ONE (09:00)
[2016-08-31] MEDS: ONDANSETRON 4 MG/2 ML VIAL IVP PRN (09:03)
[2016-08-31] MEDS: MULTIVITAMIN W/MINERALS TABLET PO SCH (09:15)
[2016-08-31] MEDS: POLYETHYLENE GLYCOL 3350 17 GM PACKET PO SCH (09:15)
[2016-08-31] MEDS: DOCUSATE SODIUM 250 MG CAPSULE PO SCH (10:33)
[2016-08-31] MEDS: POTASSIUM CHLOR 10 MEQ/100 ML 100 ML IV SCH ×4 (11:03→12:59)
[2016-08-31] MEDS: SODIUM CHLORIDE 0.9% 1,000 ML IV SCH (11:12)
[2016-08-31] MEDS: oxyCOD/ACETAMIN 5 MG/325 MG TABLET PO PRN (12:57)
--- NOTE | 2016-08-31 13:47 | PROVIDER PROGRESS NOTE ---
Subjective - Prog Note Date Prog Note Date: 08/31/16 Prog Note Time: 13:45 - Subjective Pt reports feeling: Improved, No change, Worse Subjective: pt state nausea after she took potassium pill. So pt did not swallow the potassium pill. Current Medications - Current Medications Current Medications: pt's potassium is 3.1, order IV of potassium Objective - Vital Signs/Intake & Output Vital Signs: Vital Signs x48h Temp Pulse Resp BP Pulse Ox 08/31/16 09:14 36.5 C 85 18 143/91 H 95 Intake & Output: Intake & Output 08/28/16 08/29/16 08/30/16 08/31/16 23:59 23:59 23:59 23:59 Intake Total 4982 2528 2344 1266 Output Total 4050 3660 2250 1425 Balance 932 -1132 94 -159 - Objective General Appearance: positive: Alert, Mild distress Eyes Bilateral: positive: Normal inspection, PERRL ENT: positive: ENT inspection nml, Pharynx nml Neck: positive: Nml inspection, Trachea midline Respiratory: positive: Chest non-tender, No respiratory distress, Breath sounds nml Cardiovascular: positive: Regular rate & rhythm, No murmur Peripheral Pulses: 2+ Radial (R), 2+ Radial (L), 2+ Dorsalis pedis (R), 2+ Dorsalis pedis (L) Abdomen: positive: Non-tender, Nml bowel sounds, Other (with dressing on surgerical site) Back: positive: Nml inspection Skin: positive: Color nml, Warm Extremities: positive: Non-tender, Full ROM, Nml appearance Neurologic/Psychiatric: positive: Oriented x3, Motor nml, Sensation nml, Weakness - Lab Results Fish Bones: 09/01/16 06:26 09/01/16 06:26 Other Labs: Lab Results x24hrs 08/31/16 08/31/16 Range/Units 05:24 05:24 WBC 16.3 H (4.8-10.8) x10^3/uL RBC 3.60 L (4.20-5.40) 10^6/uL Hgb 10.9 L (12.0-16.0) g/dL Hct 32.9 L (37.0-47.0) % MCV 91.4 (81.0-99.0) fL MCH 30.4 (27.0-31.0) pg MCHC 33.2 (32.0-36.0) g/dL RDW 14.2 (12.0-15.0) % Plt Count 376 (130-450) 10^3/uL MPV 8.2 (7.9-10.8) fL Neut # 12.6 H (1.5-6.6) 10^3/uL Lymph # 1.8 (1.5-3.5) 10^3/uL [place] # 1.6 H (0.0-1.0) 10^3/uL Eos # 0.2 (0.0-0.7) 10^3/uL Baso # 0.1 (0.0-0.1) 10^3/uL Absolute Nucleated RBC 0.02 x10^3/uL Band Neuts % (Manual) Not Reportable Nucleated RBCs 0.1 /100WBC Differential Comment MANUAL=AUTO DIFF Platelet Estimate NORMAL (130-450,000) (NORMAL) Platelet Morphology 1+ LARGE PLATELETS (NORMAL) RBC Morph Micro Appear NORMAL APPEARANCE (NORMAL) Sodium 143 (135-145) mmol/L Potassium 3.3 L (3.5-5.0) mmol/L Chloride 107 (101-111) mmol/L Carbon Dioxide 26 (21-32) mmol/L Anion Gap 10.0 (6-13) BUN 10 (6-20) mg/dL Creatinine 1.2 H (0.4-1.0) mg/dL Estimated GFR (MDRD) 48 L (>89) Glucose 114 H (70-100) mg/dL Calcium 8.2 L (8.5-10.3) mg/dL Assessment/Plan - Problem List (1) Postoperative fever Impression: (1) Postoperative fever Impression: 08/31 continue on unasyn, advise pt eat more and ambulate.pt still felt weakness. 08/29; cultures still NGTD, on repeat CXR after frequent and increased IS use yesterday, still "infiltrate vs atelectasis. Effusion as well also noted on exam w/ absent L base sounds also clouding picture a bit afebrile, no oxygen requirement day 2 of change to zosyn, per Dr. Luz, no new gut source suspect and surgical site incision clean low suspician for MRSA - will d/c vanco continue to tx as possible early pneumonia, pleural effusion could be parapneumonic, but with IV volume wt up (got lasix), more likl 3rd spaced once changed to po, could use augmentin 08/28no recurrent fever since 2p yesterday hemodynamically stable chest exam unremarkable today, 99% RA ERtapenem was changed to zosyn, vanco extensive w/u neg thus far, blood cx NGTD Infiltrates on pulm imaging "infiltrate vs atelectasis" will recheck CXR in am, if no clear infiltrate after ~ 48 hr IS use, can d/c vanc 2) POD#6 Laparoscopic appendectomy with Extensive Lysis of adhesions POD#7, Segmental Bowel resection per Dr Humphrey today: Continue IV ABX (changed to Unasyn due to RENNY; see below) Advance diet as tolerated Continue pain control Medical team on case appreciated Iv hydration AM labs 3) Acute kidney injury Cr 0.6>>1.1 (after IV Lasix early 08/29) >>> 1.4 today suspect multifactorial, hypoalbuminemic, likely reduced intravasc volume ( although bP ok), and toradol d/c'd ,possible contribution of vanc/zosyn combo that can >>RENNY ; stopped vanco 18, stopping zosyn today as relatively low suspician for acute pulm process getting IVF at 125 recheck UA in am (expect the microscopic hematuria should be improved/ peralta out if not improved send lytes for FENA but suspect it will improve. likley little contribution of the IV contrast (but she was on the NSAID, and sl volume deplete) Dr Zarate indicated still needed Abx until SBFT complete switched to renal dose unasyn ; (2) GERD (gastroesophageal reflux disease) Impression: no indication for IV PPI, since taking PO, could change to PO protonix once daily (4) Tobacco use Impression: nicoderm patch on 7) hypokalemia: 40 meq potassium IV
[2016-08-31] MEDS ORDERED: POTASSIUM CHLORIDE 20 MEQ TABLET PO SCH (14:00)
[2016-08-31] MEDS: MAGNESIUM OXIDE 400 MG TABLET PO SCH (14:06)
--- NOTE | 2016-08-31 14:39 | PROVIDER PROGRESS NOTE ---
Subjective - General Admit Date: 08/24/16 Procedure Date: 08/25/16 Post Op Days: 6 Procedure Performed: Laparoscopy, segmental bowel resection POD#6 LAP APPY GABRIEL POD#8 - Review of Systems Wound/Incisions: positive: Dressing dry and intact Drain Type: GABRIEL round General: positive: No symptoms, Weakness HEENT: positive: No symptoms Pulmonary: positive: No symptoms, Shortness of breath Cardiovascular: positive: No symptoms Gastrointestinal: positive: Abdominal pain (Post op appropriate) Genitourinary: positive: No symptoms Musculoskeletal: positive: No symptoms Skin: positive: No symptoms Psychiatric: positive: No symptoms All Other Systems: positive: Reviewed and negative - Other Other Information/Narrative: Patient seen and examined bedside. Had SBFT completion today with transit through the bowel to rectum, although slow to transit favoring Ileus. Patient states that she has been getting out of bed and using IS. She states she drinks something and holds it down for a few hours and then vomits it back up sometimes. No othe rissues reproted by RN. Objective - Patient Data Reviewed Vital Signs: Yes Vital Signs: Vital Signs x48h Temp Pulse Resp BP Pulse Ox 08/31/16 09:14 36.5 C 85 18 143/91 H 95 Weight: Weight 08/29/16 08/30/16 08/31/16 23:59 23:59 23:59 Weight (kg) 87.5 kg 85.2 kg 85 kg Intake & Output: Intake and Output Totals x24h 08/29/16 08/30/16 08/31/16 23:59 23:59 23:59 Intake Total 2528 2344 2242 Output Total 3660 2250 1425 Balance -1132 94 817 - Lab Results Lab Results: 08/31/16 05:24 08/31/16 05:24 Other Lab Results: Lab Results x24hrs 08/31/16 08/31/16 Range/Units 05:24 05:24 WBC 16.3 H (4.8-10.8) x10^3/uL RBC 3.60 L (4.20-5.40) 10^6/uL Hgb 10.9 L (12.0-16.0) g/dL Hct 32.9 L (37.0-47.0) % MCV 91.4 (81.0-99.0) fL MCH 30.4 (27.0-31.0) pg MCHC 33.2 (32.0-36.0) g/dL RDW 14.2 (12.0-15.0) % Plt Count 376 (130-450) 10^3/uL MPV 8.2 (7.9-10.8) fL Neut # 12.6 H (1.5-6.6) 10^3/uL Lymph # 1.8 (1.5-3.5) 10^3/uL [place] # 1.6 H (0.0-1.0) 10^3/uL Eos # 0.2 (0.0-0.7) 10^3/uL Baso # 0.1 (0.0-0.1) 10^3/uL Absolute Nucleated RBC 0.02 x10^3/uL Band Neuts % (Manual) Not Reportable Nucleated RBCs 0.1 /100WBC Differential Comment MANUAL=AUTO DIFF Platelet Estimate NORMAL (130-450,000) (NORMAL) Platelet Morphology 1+ LARGE PLATELETS (NORMAL) RBC Morph Micro Appear NORMAL APPEARANCE (NORMAL) Sodium 143 (135-145) mmol/L Potassium 3.3 L (3.5-5.0) mmol/L Chloride 107 (101-111) mmol/L Carbon Dioxide 26 (21-32) mmol/L Anion Gap 10.0 (6-13) BUN 10 (6-20) mg/dL Creatinine 1.2 H (0.4-1.0) mg/dL Estimated GFR (MDRD) 48 L (>89) Glucose 114 H (70-100) mg/dL Calcium 8.2 L (8.5-10.3) mg/dL - Imaging Results Radiology Imaging: positive: EMP read contemporaneously (SBFT- Contrast in colon with slow transit time Favoring Ileus over partial obstruction) - Current Medications Current Medications: Current Medications Generic Name Dose Route Start Last Admin Trade Name Freq PRN Reason Stop Dose Admin Diphenhydramine HCl 12.5 - 25 mg 08/25/16 16:56 08/28/16 12:35 Benadryl Inj IV 25 mg Q6H PRN Administration PRURITIS Docusate Sodium 250 - 500 mg 08/29/16 09:00 08/31/16 10:33 Colace 250mg Capsule PO Not Given DAILY DORIS Heparin Sodium (Porcine) 5,000 unit 08/29/16 09:00 08/31/16 08:53 SUBQ 5,000 unit Q12H DORIS Administration Fentanyl/Bupivacaine/Sodium Chlor 250 mls @ 8 mls/hr 08/25/16 17:04 08/27/16 03 :39 Fent/Bupiv 2 Mcg/0.125% EP 8 mls/hr .[id number] PRN Administration PAIN Protocol Ampicillin Sodium/Sulbactam 100 mls @ 200 mls/hr 08/30/16 14:00 08/31/16 13:51 Sodium 1.5 gm/ Sodium Chloride IV 200 mls/hr Q8H DORIS Administration Sodium Chloride 1,000 mls @ 83 mls/hr 08/30/16 20:30 08/31/16 11:12 Normal Saline 0.9% IV 83 mls/hr .Q12H3M DORIS Administration Magnesium Oxide 400 mg 08/31/16 14:00 08/31/16 14:06 Mag Ox PO 09/02/16 13:59 400 mg DAILYWM DORIS Administration Multivitamins/Minerals 1 tab 08/29/16 08:00 08/31/16 09:15 Theragran M PO 1 tab DAILYWM DORIS Administration Nicotine 1 patch 08/24/16 09:00 08/31/16 08:52 Nicoderm TOP 1 patch DAILY DORIS Administration Ondansetron HCl 4 mg 08/30/16 14:39 08/31/16 09:03 Zofran Inj IVP 4 mg Q6HR PRN Administration Nausea / Vomiting Oxycodone/Acetaminophen 1 tab 08/29/16 21:30 08/31/16 12:57 Percocet 5 Mg/325 Mg PO 1 tab Q6HR PRN Administration PAIN Phenol/Menthol 1 sprays 08/24/16 00:25 08/25/16 22:03 Chloraseptic MM 1 sprays Q2HR PRN Administration Throat Pain Polyethylene Glycol 17 gm 08/29/16 09:00 08/31/16 09:15 Miralax PO Not Given DAILY DORIS Prochlorperazine Maleate 5 mg 08/30/16 18:51 08/30/16 20:03 Compazine PO 5 mg Q6HR PRN Administration Nausea / Vomiting Propranolol HCl 40 mg 08/29/16 09:00 06/20/17 08:54 Inderal PO 40 mg BID DORIS Administration Sodium Chloride 10 ml 08/24/16 00:25 08/26/16 18:37 Normal Saline Flush 0.9% IVP 10 ml PRN PRN Administration NEEDED PER PROVIDER ORDERS Sodium Chloride 10 ml 08/24/16 06:00 08/31/16 12:30 Normal Saline Flush 0.9% IVP 10 ml Q8HR DORIS Administration Throat Lozenges 1 lozenge 08/25/16 15:31 08/25/16 18:42 Cepacol MM 1 lozenge Q2HR PRN Administration Mouth Sore Pain - Physical Exam Wound/Incisions: positive: Dressing dry and intact General Appearance: positive: No acute distress, Alert, Lethargic Eyes Bilateral: positive: EOMI Respiratory: positive: Breath sounds nml Cardiovascular: positive: Regular rate & rhythm Abdomen: positive: Tenderness (+BS, Hypoactive, Mild distention, Minimally TTP, No rebound or guarding) Skin: positive: Warm, Dry Neurologic/Psychiatric: positive: Oriented x3, CN's nml (2-12) Impression/Plan - Problem List Problem List: 51 yo female POD #6 Small bowel segment resection, POD#8 Lap Appy with GABRIEL, now with Leus Continue fulls as tolerated WBC trending back up UA ordered. Will ontain CXr in 48 hours or sooner if spikes fever. Will add flagyl to Unasyn. Replace electrolytes Reglan Will stop narcotic pain medications and begin pain scale. Medical team on case appreciated PT Heath.
[2016-08-31] MEDS: METOCLOPRAMIDE 10 MG/2 ML VIAL IVP SCH ×2 (15:57→22:08)
[2016-08-31] MEDS: metroNIDAZOLE 500 MG/100 ML 50 ML IV SCH ×2 (16:03→22:11)
[2016-09-01] MEDS: METOCLOPRAMIDE 10 MG/2 ML VIAL IVP SCH ×4 (00:05→18:15)
[2016-09-01] MEDS: SODIUM CHLORIDE 0.9% 1,000 ML IV SCH ×2 (01:48→09:03)
[2016-09-01 04:25] LABS: BILIRUBIN,URINE NEGATIVE (NEGATIVE)
[2016-09-01 04:32] LABS: UR CULTURE IF IND NOT INDICATED; WBC,URINE 0-3 /HPF (0-5)
[2016-09-01] MEDS: metroNIDAZOLE 500 MG/100 ML 50 ML IV SCH ×3 (05:46→22:27)
[2016-09-01 06:46] LABS: BASOPHILS # (AUTO) 0.1 10^3/uL (0.0-0.1); BASOPHILS % (AUTO) 0.6 %; EOSINOPHILS # (AUTO) 0.2 10^3/uL (0.0-0.7); EOSINOPHILS % (AUTO) 1.2 %; HCT - HEMATOCRIT 27.7 % (37.0-47.0); HGB - HEMOGLOBIN 9.9 g/dL (12.0-16.0); LYMPHOCYTES # (AUTO) 1.8 10^3/uL (1.5-3.5); LYMPHOCYTES % (AUTO) 11.1 %; MEAN CORPUSCULAR HEMOGLOBIN 31.9 pg (27.0-31.0); MEAN CORPUSCULAR HGB CONC 35.6 g/dL (32.0-36.0); MEAN CORPUSCULAR VOLUME 89.8 fL (81.0-99.0); MEAN PLATELET VOLUME 8.1 fL (7.9-10.8); MONOCYTES # (AUTO) 1.2 10^3/uL (0.0-1.0); MONOCYTES % (AUTO) 7.5 %; NEUTROPHILS # (AUTO) 12.6 10^3/uL (1.5-6.6); NEUTROPHILS % (AUTO) 79.6 %; RED BLOOD COUNT 3.09 10^6/uL (4.20-5.40); RED CELL DISTRIBUTION WIDTH 14.1 % (12.0-15.0); UNCORRECTED WHITE BLOOD COUNT 15.9 x10^3/uL; WHITE BLOOD COUNT 15.9 x10^3/uL (4.8-10.8)
[2016-09-01] MEDS: AMPICILLIN/SULBACTAM 1.5 GM in SODIUM CHLORIDE 0.9% MINIBAG 100 ML IV SCH ×3 (07:01→20:45)
[2016-09-01 07:04] LABS: CHOL/HDL RATIO 6.3 (<4.4); CHOLESTEROL 132 mg/dL; HDL CHOLESTEROL 21 mg/dL; LDL/HDL RATIO 3.8 (<4.4); TRIGLYCERIDES 154 mg/dL; VLDL CHOLESTEROL 31 mg/dL
[2016-09-01] MEDS: SODIUM CHLORIDE FLUSH 0.9% 10 ML SYRINGE IVP SCH ×3 (07:06→20:59)
[2016-09-01 07:20] LABS: CALCIUM 8.4 mg/dL (8.5-10.3); PHOSPHORUS 2.8 mg/dL (2.5-4.6); POTASSIUM 3.5 mmol/L (3.5-5.0)
[2016-09-01] MEDS: MULTIVITAMIN W/MINERALS TABLET PO SCH (08:50)
[2016-09-01] MEDS: MAGNESIUM OXIDE 400 MG TABLET PO SCH (08:50)
[2016-09-01] MEDS: PROPRANOLOL 40 MG TABLET PO SCH ×2 (08:50→20:45)
[2016-09-01] MEDS: HEPARIN 5,000 UNIT/ML VIAL SUBQ SCH ×2 (08:51→20:36)
[2016-09-01] MEDS: POLYETHYLENE GLYCOL 3350 17 GM PACKET PO SCH (09:01)
[2016-09-01] MEDS: DOCUSATE SODIUM 250 MG CAPSULE PO SCH (09:02)
[2016-09-01] MEDS: POTASSIUM CHLORIDE 20 MEQ TABLET PO SCH ×2 (09:02→12:26)
[2016-09-01] MEDS: NICOTINE 14 MG PATCH TOP SCH (09:02)
--- NOTE | 2016-09-01 10:01 | PROVIDER PROGRESS NOTE ---
Subjective - General Admit Date: 08/24/16 Procedure Date: 08/25/16 Post Op Days: 7 Procedure Performed: Laparoscopy, segmental bowel resection POD#7 LAP APPY GABRIEL POD#9 - Review of Systems Wound/Incisions: positive: Dressing dry and intact General: positive: No symptoms, Weakness HEENT: positive: No symptoms Pulmonary: positive: No symptoms, Shortness of breath Cardiovascular: positive: No symptoms Gastrointestinal: positive: Abdominal pain (Post op appropriate) Genitourinary: positive: No symptoms Musculoskeletal: positive: No symptoms Skin: positive: No symptoms Psychiatric: positive: No symptoms All Other Systems: positive: Reviewed and negative - Other Other Information/Narrative: Patient seen at bedside. She states she feels much better than yesterday, however has been having multiple bowel movements. Has been ambulating & using IS. No other issues reported Objective - Patient Data Reviewed Vital Signs: Yes Vital Signs: Vital Signs x48h Temp Pulse Resp BP Pulse Ox 09/01/16 08:55 36.6 C 85 20 134/85 H 98 09/01/16 04:10 36.6 C 92 20 145/89 H 96 Weight: Weight 08/30/16 08/31/16 09/01/16 23:59 23:59 23:59 Weight (kg) 85.2 kg 85 kg 86.1 kg Intake & Output: Intake and Output Totals x24h 08/30/16 08/31/16 09/01/16 23:59 23:59 23:59 Intake Total 2344 3185 684 Output Total 2250 1425 1250 Balance 94 1760 -566 - Lab Results Lab Results: 09/01/16 06:26 09/01/16 06:26 Other Lab Results: Lab Results x24hrs 09/01/16 09/01/16 09/01/16 Range/Units 06:26 06:26 06:26 WBC 15.9 H (4.8-10.8) x10^3/uL RBC 3.09 L (4.20-5.40) 10^6/uL Hgb 9.9 L (12.0-16.0) g/dL Hct 27.7 L (37.0-47.0) % MCV 89.8 (81.0-99.0) fL MCH 31.9 H (27.0-31.0) pg MCHC 35.6 (32.0-36.0) g/dL RDW 14.1 (12.0-15.0) % Plt Count 351 (130-450) 10^3/uL MPV 8.1 (7.9-10.8) fL Neut # 12.6 H (1.5-6.6) 10^3/uL Lymph # 1.8 (1.5-3.5) 10^3/uL [place] # 1.2 H (0.0-1.0) 10^3/uL Eos # 0.2 (0.0-0.7) 10^3/uL Baso # 0.1 (0.0-0.1) 10^3/uL Absolute Nucleated RBC 0.01 x10^3/uL Nucleated RBCs 0.0 /100WBC Manual Slide Review Indicated RBC Morph Micro Appear 1+ ANISOCYTOSIS (NORMAL) Sodium 142 (135-145) mmol/L Potassium 3.5 (3.5-5.0) mmol/L Chloride 108 (101-111) mmol/L Carbon Dioxide 27 (21-32) mmol/L Anion Gap 7.0 (6-13) BUN 7 (6-20) mg/dL Creatinine 1.0 (0.4-1.0) mg/dL Estimated GFR (MDRD) 59 L (>89) Glucose 104 H (70-100) mg/dL Calcium 8.4 L (8.5-10.3) mg/dL Phosphorus 2.8 (2.5-4.6) mg/dL Triglycerides 154 H ( - 149) mg/dL Cholesterol 132 ( - 199) mg/dL LDL Cholesterol, Calc 80 ( - 129) mg/dL VLDL Cholesterol 31 mg/dL HDL Cholesterol 21 L (60 - ) mg/dL LDL/HDL Ratio 3.8 (<4.4) Cholesterol/HDL Ratio 6.3 (<4.4) Urine Color Urine Clarity (CLEAR) Urine pH (5.0-7.5) PH Ur Specific [place] (1.002-1.030) Urine Protein (NEGATIVE) mg/dL Urine Glucose (UA) (NEGATIVE) mg/dL Urine Ketones (NEGATIVE) mg/dL Urine Occult Blood (NEGATIVE) Urine Nitrite (NEGATIVE) Urine Bilirubin (NEGATIVE) Urine Urobilinogen (NORMAL) E.U./dL Ur Leukocyte Esterase (NEGATIVE) Urine RBC (0-5) /HPF Urine WBC (0-5) /HPF Ur Squamous Epith Cells (<= Few) Urine Bacteria (None Seen) /HPF Urine Culture Comments 09/01/16 Range/Units 04:10 WBC (4.8-10.8) x10^3/uL RBC (4.20-5.40) 10^6/uL Hgb (12.0-16.0) g/dL Hct (37.0-47.0) % MCV (81.0-99.0) fL MCH (27.0-31.0) pg MCHC (32.0-36.0) g/dL RDW (12.0-15.0) % Plt Count (130-450) 10^3/uL MPV (7.9-10.8) fL Neut # (1.5-6.6) 10^3/uL Lymph # (1.5-3.5) 10^3/uL [place] # (0.0-1.0) 10^3/uL Eos # (0.0-0.7) 10^3/uL Baso # (0.0-0.1) 10^3/uL Absolute Nucleated RBC x10^3/uL Nucleated RBCs /100WBC Manual Slide Review RBC Morph Micro Appear (NORMAL) Sodium (135-145) mmol/L Potassium (3.5-5.0) mmol/L Chloride (101-111) mmol/L Carbon Dioxide (21-32) mmol/L Anion Gap (6-13) BUN (6-20) mg/dL Creatinine (0.4-1.0) mg/dL Estimated GFR (MDRD) (>89) Glucose (70-100) mg/dL Calcium (8.5-10.3) mg/dL Phosphorus (2.5-4.6) mg/dL Triglycerides ( - 149) mg/dL Cholesterol ( - 199) mg/dL LDL Cholesterol, Calc ( - 129) mg/dL VLDL Cholesterol mg/dL HDL Cholesterol (60 - ) mg/dL LDL/HDL Ratio (<4.4) Cholesterol/HDL Ratio (<4.4) Urine Color YELLOW Urine Clarity CLEAR (CLEAR) Urine pH 6.0 (5.0-7.5) PH Ur Specific [place] 1.010 (1.002-1.030) Urine Protein NEGATIVE (NEGATIVE) mg/dL Urine Glucose (UA) NEGATIVE (NEGATIVE) mg/dL Urine Ketones NEGATIVE (NEGATIVE) mg/dL Urine Occult Blood [place] (NEGATIVE) Urine Nitrite NEGATIVE (NEGATIVE) Urine Bilirubin NEGATIVE (NEGATIVE) Urine Urobilinogen 0.2 (NORMAL) (NORMAL) E.U./dL Ur Leukocyte Esterase NEGATIVE (NEGATIVE) Urine RBC 0-5 (0-5) /HPF Urine WBC 0-3 (0-5) /HPF Ur Squamous Epith Cells RARE Squamous (<= Few) Urine Bacteria Rare (None Seen) /HPF Urine Culture Comments NOT INDICATED - Current Medications Current Medications: Current Medications Generic Name Dose Route Start Last Admin Trade Name Freq PRN Reason Stop Dose Admin Diphenhydramine HCl 12.5 - 25 mg 08/25/16 16:56 08/28/16 12:35 Benadryl Inj IV 25 mg Q6H PRN Administration PRURITIS Docusate Sodium 250 - 500 mg 08/29/16 09:00 09/01/16 09:02 Colace 250mg Capsule PO Not Given DAILY DORIS Heparin Sodium (Porcine) 5,000 unit 08/29/16 09:00 09/01/16 08:51 SUBQ 5,000 unit Q12H DORIS Administration Ampicillin Sodium/Sulbactam 100 mls @ 200 mls/hr 08/30/16 14:00 09/01/16 07:01 Sodium 1.5 gm/ Sodium Chloride IV 200 mls/hr Q8H DORIS Administration Sodium Chloride 1,000 mls @ 83 mls/hr 08/30/16 20:30 09/01/16 09:03 Normal Saline 0.9% IV Not Given .Q12H3M DORIS Metronidazole 50 mls @ 100 mls/hr 08/31/16 15:00 09/01/16 05:46 Flagyl 500 Mg/100 Ml IV 100 mls/hr Q8HR DORIS Administration Magnesium Oxide 400 mg 08/31/16 14:00 09/01/16 08:50 Mag Ox PO 09/02/16 13:59 400 mg DAILYWM DORIS Administration Metoclopramide HCl 5 mg 08/31/16 15:00 09/01/16 07:00 Reglan Inj IVP 09/02/16 14:59 5 mg Q6HR DORIS Administration Multivitamins/Minerals 1 tab 08/29/16 08:00 09/01/16 08:50 Theragran M PO 1 tab DAILYWM DORIS Administration Nicotine 1 patch 08/24/16 09:00 09/01/16 09:02 Nicoderm TOP 1 patch DAILY DORIS Administration Ondansetron HCl 4 mg 08/30/16 14:39 08/31/16 09:03 Zofran Inj IVP 4 mg Q6HR PRN Administration Nausea / Vomiting Phenol/Menthol 1 sprays 08/24/16 00:25 08/25/16 22:03 Chloraseptic MM 1 sprays Q2HR PRN Administration Throat Pain Polyethylene Glycol 17 gm 08/29/16 09:00 09/01/16 09:01 Miralax PO Not Given DAILY DORIS Potassium Chloride 20 meq 09/01/16 09:00 09/01/16 09:02 K-Dur PO 09/01/16 13:01 20 meq Q4HR DORIS Administration Propranolol HCl 40 mg 08/29/16 09:00 09/01/16 08:50 Inderal PO 40 mg BID DORIS Administration Sodium Chloride 10 ml 08/24/16 00:25 08/26/16 18:37 Normal Saline Flush 0.9% IVP 10 ml PRN PRN Administration NEEDED PER PROVIDER ORDERS Sodium Chloride 10 ml 08/24/16 06:00 09/01/16 07:06 Normal Saline Flush 0.9% IVP Not Given Q8HR DORIS Throat Lozenges 1 lozenge 08/25/16 15:31 08/25/16 18:42 Cepacol MM 1 lozenge Q2HR PRN Administration Mouth Sore Pain - Physical Exam Wound/Incisions: positive: Dressing dry and intact, No drainage General Appearance: positive: No acute distress, Alert Eyes Bilateral: positive: EOMI ENT: positive: No signs of dehydration Neck: positive: No JVD Respiratory: positive: Breath sounds nml Cardiovascular: positive: Regular rate & rhythm Abdomen: positive: Tenderness (+bs, mild ttp trace distention, No rebound or guarding) Skin: positive: Warm, Dry Extremities: negative: Calf tenderness, Lan's sign/cords Neurologic/Psychiatric: positive: Oriented x3, CN's nml (2-12) Impression/Plan - Problem List Problem List: 51 yo female s/p Laparoscopy, segmental bowel resection POD#7 LAP APPY GABRIEL POD#9 Overall condition improving, however still has leukocytosis without fever. Will send for C Diff Patient on IV flagyl Will advance diet as tolerated Electrolytes being monitored closely and replacing as well as Creatinine function and hydration Medical team on case appreciated Nutrition on case appreciated Case discussed with our surgical group who agrees with management.
--- NOTE | 2016-09-01 11:22 | PROVIDER PROGRESS NOTE ---
Subjective - Prog Note Date Prog Note Date: 09/01/16 Prog Note Time: 11:17 - Subjective Pt reports feeling: Improved (She feels much better today, ate better, and ambulate as well) Objective - Vital Signs/Intake & Output Vital Signs: Vital Signs x48h Temp Pulse Resp BP Pulse Ox 09/01/16 08:55 36.6 C 85 20 134/85 H 98 09/01/16 04:10 36.6 C 92 20 145/89 H 96 Intake & Output: Intake & Output 08/29/16 08/30/16 08/31/16 09/01/16 23:59 23:59 23:59 23:59 Intake Total 2528 2344 3185 1164 Output Total 3660 2250 1425 1250 Balance -1132 94 1760 -86 - Objective General Appearance: positive: No acute distress, Alert Eyes Bilateral: positive: Normal inspection, PERRL ENT: positive: Pharynx nml Neck: positive: Nml inspection, Trachea midline Respiratory: positive: Chest non-tender, No respiratory distress, Breath sounds nml Cardiovascular: positive: Regular rate & rhythm, No murmur Abdomen: positive: Non-tender, Nml bowel sounds, No distention Back: positive: Nml inspection Skin: positive: Color nml, Warm - Lab Results Fish Bones: 09/01/16 06:26 09/01/16 06:26 Other Labs: Lab Results x24hrs 09/01/16 09/01/16 09/01/16 Range/Units 06:26 06:26 06:26 WBC 15.9 H (4.8-10.8) x10^3/uL RBC 3.09 L (4.20-5.40) 10^6/uL Hgb 9.9 L (12.0-16.0) g/dL Hct 27.7 L (37.0-47.0) % MCV 89.8 (81.0-99.0) fL MCH 31.9 H (27.0-31.0) pg MCHC 35.6 (32.0-36.0) g/dL RDW 14.1 (12.0-15.0) % Plt Count 351 (130-450) 10^3/uL MPV 8.1 (7.9-10.8) fL Neut # 12.6 H (1.5-6.6) 10^3/uL Lymph # 1.8 (1.5-3.5) 10^3/uL [place] # 1.2 H (0.0-1.0) 10^3/uL Eos # 0.2 (0.0-0.7) 10^3/uL Baso # 0.1 (0.0-0.1) 10^3/uL Absolute Nucleated RBC 0.01 x10^3/uL Nucleated RBCs 0.0 /100WBC Manual Slide Review Indicated RBC Morph Micro Appear 1+ ANISOCYTOSIS (NORMAL) Sodium 142 (135-145) mmol/L Potassium 3.5 (3.5-5.0) mmol/L Chloride 108 (101-111) mmol/L Carbon Dioxide 27 (21-32) mmol/L Anion Gap 7.0 (6-13) BUN 7 (6-20) mg/dL Creatinine 1.0 (0.4-1.0) mg/dL Estimated GFR (MDRD) 59 L (>89) Glucose 104 H (70-100) mg/dL Calcium 8.4 L (8.5-10.3) mg/dL Phosphorus 2.8 (2.5-4.6) mg/dL Prealbumin (18-45) mg/dL Triglycerides 154 H ( - 149) mg/dL Cholesterol 132 ( - 199) mg/dL LDL Cholesterol, Calc 80 ( - 129) mg/dL VLDL Cholesterol 31 mg/dL HDL Cholesterol 21 L (60 - ) mg/dL LDL/HDL Ratio 3.8 (<4.4) Cholesterol/HDL Ratio 6.3 (<4.4) Urine Color Urine Clarity (CLEAR) Urine pH (5.0-7.5) PH Ur Specific [place] (1.002-1.030) Urine Protein (NEGATIVE) mg/dL Urine Glucose (UA) (NEGATIVE) mg/dL Urine Ketones (NEGATIVE) mg/dL Urine Occult Blood (NEGATIVE) Urine Nitrite (NEGATIVE) Urine Bilirubin (NEGATIVE) Urine Urobilinogen (NORMAL) E.U./dL Ur Leukocyte Esterase (NEGATIVE) Urine RBC (0-5) /HPF Urine WBC (0-5) /HPF Ur Squamous Epith Cells (<= Few) Urine Bacteria (None Seen) /HPF Urine Culture Comments 09/01/16 09/01/16 Range/Units 06:24 04:10 WBC (4.8-10.8) x10^3/uL RBC (4.20-5.40) 10^6/uL Hgb (12.0-16.0) g/dL Hct (37.0-47.0) % MCV (81.0-99.0) fL MCH (27.0-31.0) pg MCHC (32.0-36.0) g/dL RDW (12.0-15.0) % Plt Count (130-450) 10^3/uL MPV (7.9-10.8) fL Neut # (1.5-6.6) 10^3/uL Lymph # (1.5-3.5) 10^3/uL [place] # (0.0-1.0) 10^3/uL Eos # (0.0-0.7) 10^3/uL Baso # (0.0-0.1) 10^3/uL Absolute Nucleated RBC x10^3/uL Nucleated RBCs /100WBC Manual Slide Review RBC Morph Micro Appear (NORMAL) Sodium (135-145) mmol/L Potassium (3.5-5.0) mmol/L Chloride (101-111) mmol/L Carbon Dioxide (21-32) mmol/L Anion Gap (6-13) BUN (6-20) mg/dL Creatinine (0.4-1.0) mg/dL Estimated GFR (MDRD) (>89) Glucose (70-100) mg/dL Calcium (8.5-10.3) mg/dL Phosphorus (2.5-4.6) mg/dL Prealbumin 9 L (18-45) mg/dL Triglycerides ( - 149) mg/dL Cholesterol ( - 199) mg/dL LDL Cholesterol, Calc ( - 129) mg/dL VLDL Cholesterol mg/dL HDL Cholesterol (60 - ) mg/dL LDL/HDL Ratio (<4.4) Cholesterol/HDL Ratio (<4.4) Urine Color YELLOW Urine Clarity CLEAR (CLEAR) Urine pH 6.0 (5.0-7.5) PH Ur Specific [place] 1.010 (1.002-1.030) Urine Protein NEGATIVE (NEGATIVE) mg/dL Urine Glucose (UA) NEGATIVE (NEGATIVE) mg/dL Urine Ketones NEGATIVE (NEGATIVE) mg/dL Urine Occult Blood TRACE-INTA (NEGATIVE) Urine Nitrite NEGATIVE (NEGATIVE) Urine Bilirubin NEGATIVE (NEGATIVE) Urine Urobilinogen 0.2 (NORMAL) (NORMAL) E.U./dL Ur Leukocyte Esterase NEGATIVE (NEGATIVE) Urine RBC 0-5 (0-5) /HPF Urine WBC 0-3 (0-5) /HPF Ur Squamous Epith Cells RARE Squamous (<= Few) Urine Bacteria Rare (None Seen) /HPF Urine Culture Comments NOT INDICATED Assessment/Plan - Problem List (1) Postoperative fever Impression: advise pt continue ambulate, increase appetite daily lab test closely monitor and prepare D/C pt to home
[2016-09-01] MEDS: SODIUM CHLORIDE FLUSH 0.9% 10 ML SYRINGE IVP PRN (12:25)
[2016-09-01] MEDS ORDERED: SODIUM CHLORIDE 0.9% 1,000 ML IV SCH (12:53)
[2016-09-01] MEDS: ACETAMINOPHEN 325 MG TABLET PO PRN (14:40)
[2016-09-01] MEDS: KETOROLAC 15 MG/ML VIAL IVP PRN ×2 (14:43→20:46)
[2016-09-02] MEDS: METOCLOPRAMIDE 10 MG/2 ML VIAL IVP SCH ×2 (00:28→06:44)
[2016-09-02] MEDS: diphenhydrAMINE INJ 50 MG/ML VIAL IV PRN (03:23)
[2016-09-02] MEDS: AMPICILLIN/SULBACTAM 1.5 GM in SODIUM CHLORIDE 0.9% MINIBAG 100 ML IV SCH (05:29)
[2016-09-02 06:18] LABS: BASOPHILS % (AUTO) 0.3 %; EOSINOPHILS % (AUTO) 1.8 %; HCT - HEMATOCRIT 29.2 % (37.0-47.0); HGB - HEMOGLOBIN 9.6 g/dL (12.0-16.0); LYMPHOCYTES % (AUTO) 10.8 %; MEAN CORPUSCULAR HGB CONC 32.9 g/dL (32.0-36.0); MEAN CORPUSCULAR VOLUME 91.3 fL (81.0-99.0); MEAN PLATELET VOLUME 8.2 fL (7.9-10.8); MONOCYTES % (AUTO) 7.4 %; NEUTROPHILS % (AUTO) 79.7 %; RED BLOOD COUNT 3.19 10^6/uL (4.20-5.40); RED CELL DISTRIBUTION WIDTH 13.7 % (12.0-15.0); UNCORRECTED WHITE BLOOD COUNT 15.7 x10^3/uL; WHITE BLOOD COUNT 15.7 x10^3/uL (4.8-10.8)
[2016-09-02 06:24] LABS: ALBUMIN/GLOBULIN RATIO 0.7 (1.0-2.2); BILIRUBIN,TOTAL 0.4 mg/dL (0.2-1.0); CALCIUM 8.4 mg/dL (8.5-10.3); CREATININE 0.8 mg/dL (0.4-1.0); PHOSPHORUS 3.2 mg/dL (2.5-4.6); POTASSIUM 3.3 mmol/L (3.5-5.0); TOTAL PROTEIN 5.5 g/dL (6.7-8.2)
[2016-09-02 06:41] LABS: BAND NEUTROPHILS % (MANUAL) 3 %; EOSINOPHILS % (MANUAL) 1 %; LYMPHOCYTES % (MANUAL) 9 %; NEUTROPHILS % (MANUAL) 81 %; PLATELET ESTIMATE, MANUAL NORMAL (130-450,000) (NORMAL); TOTAL CELLS COUNTED 100
[2016-09-02] MEDS: metroNIDAZOLE 500 MG/100 ML 50 ML IV SCH ×3 (06:45→21:34)
[2016-09-02] MEDS: SODIUM CHLORIDE FLUSH 0.9% 10 ML SYRINGE IVP SCH ×3 (06:45→21:38)
[2016-09-02 06:46] LABS: NP AUTO DIFFERENTIAL? YES
[2016-09-02 06:48] LABS: NP MAN DIFFERENTIAL? NO
[2016-09-02] MEDS: MAGNESIUM OXIDE 400 MG TABLET PO SCH (08:57)
[2016-09-02] MEDS: PROPRANOLOL 40 MG TABLET PO SCH ×2 (08:57→21:38)
[2016-09-02] MEDS: MULTIVITAMIN W/MINERALS TABLET PO SCH (08:57)
[2016-09-02] MEDS: POLYETHYLENE GLYCOL 3350 17 GM PACKET PO SCH (08:59)
[2016-09-02] MEDS: NICOTINE 14 MG PATCH TOP SCH (08:59)
[2016-09-02] MEDS: DOCUSATE SODIUM 250 MG CAPSULE PO SCH (08:59)
[2016-09-02] MEDS: HEPARIN 5,000 UNIT/ML VIAL SUBQ SCH ×2 (09:07→21:33)
[2016-09-02] MEDS: POTASSIUM CHLOR 10 MEQ/100 ML 100 ML IV SCH ×4 (09:14→13:41)
[2016-09-02] MEDS: KETOROLAC 15 MG/ML VIAL IVP PRN ×2 (11:16→19:28)
[2016-09-02] MEDS: ONDANSETRON 4 MG/2 ML VIAL IVP PRN (11:16)
--- NOTE | 2016-09-02 11:48 | PROVIDER PROGRESS NOTE ---
Subjective - General Admit Date: 08/24/16 Procedure Date: 08/25/16 Post Op Days: 8 Procedure Performed: Laparoscopy, segmental bowel resection POD#8 LAP APPY GABRIEL POD#10 - Review of Systems Wound/Incisions: positive: Dressing dry and intact, No drainage General: positive: No symptoms, Weakness HEENT: positive: No symptoms Pulmonary: positive: No symptoms Cardiovascular: positive: No symptoms Gastrointestinal: positive: Abdominal pain (Post op appropriate) Genitourinary: positive: No symptoms Musculoskeletal: positive: No symptoms Skin: positive: No symptoms Psychiatric: positive: No symptoms All Other Systems: positive: Reviewed and negative - Other Other Information/Narrative: patient seen and examined. was doing well and tolerating meals and now began having multiple episodes of diarrhea. tolerating diet with minimal nausea. No other issues reported Objective - Patient Data Reviewed Vital Signs: Yes Vital Signs: Vital Signs x48h Temp Pulse Resp BP Pulse Ox 09/02/16 08:00 37.2 C 83 16 156/96 H 95 Weight: Weight 08/31/16 09/01/16 09/02/16 23:59 23:59 23:59 Weight (kg) 85 kg 86.1 kg 86.9 kg Intake & Output: Intake and Output Totals x24h 08/31/16 09/01/16 09/02/16 23:59 23:59 23:59 Intake Total 3185 3145 499 Output Total 1425 1350 Balance 1760 1795 499 - Lab Results Lab Results: 09/02/16 05:24 09/02/16 05:24 Other Lab Results: Lab Results x24hrs 09/02/16 09/02/16 Range/Units 05:24 05:24 WBC 15.7 H (4.8-10.8) x10^3/uL RBC 3.19 L (4.20-5.40) 10^6/uL Hgb 9.6 L (12.0-16.0) g/dL Hct 29.2 L (37.0-47.0) % MCV 91.3 (81.0-99.0) fL MCH 30.0 (27.0-31.0) pg MCHC 32.9 (32.0-36.0) g/dL RDW 13.7 (12.0-15.0) % Plt Count 382 (130-450) 10^3/uL MPV 8.2 (7.9-10.8) fL Neut # [employer]IFT SUPERVISOR Lymph # [employer]IFT SUPERVISOR [place] # [employer]IFT SUPERVISOR Eos # [employer] SHIFT SUPERVISOR Baso # [employer]IFT SUPERVISOR Absolute Nucleated RBC [employer] SUPERVISOR Total Counted 100 Band Neuts % (Manual) 3 (0 - 10) % Neutrophils # (Manual) 13.2 H (1.5-6.6) 10^3/uL Lymphocytes # (Manual) 1.4 L (1.5-3.5) 10^3/uL Monocytes # (Manual) 0.9 (0.0-1.0) 10^3/uL Eosinophils # (Manual) 0.2 (0-0.7) 10^3/uL Nucleated RBCs [employer] SUPER[employer]OR Differential Comment MANUAL DIFFERENTIAL Platelet Estimate NORMAL (130-450,000) (NORMAL) RBC Morph Micro Appear NORMAL APPEARANCE (NORMAL) Sodium 139 (135-145) mmol/L Potassium 3.3 L (3.5-5.0) mmol/L Chloride 104 (101-111) mmol/L Carbon Dioxide 26 (21-32) mmol/L Anion Gap 9.0 (6-13) BUN 9 (6-20) mg/dL Creatinine 0.8 (0.4-1.0) mg/dL Estimated GFR (MDRD) 76 L (>89) Glucose 96 (70-100) mg/dL Calcium 8.4 L (8.5-10.3) mg/dL Phosphorus 3.2 (2.5-4.6) mg/dL Total Bilirubin 0.4 (0.2-1.0) mg/dL AST 26 (10-42) IU/L ALT 31 (10-60) IU/L Alkaline Phosphatase 110 (42-121) IU/L Total Protein 5.5 L (6.7-8.2) g/dL Albumin 2.2 L (3.2-5.5) g/dL Globulin 3.3 (2.1-4.2) g/dL Albumin/Globulin Ratio 0.7 L (1.0-2.2) - Current Medications Current Medications: Current Medications Generic Name Dose Route Start Last Admin Trade Name Freq PRN Reason Stop Dose Admin Acetaminophen 650 mg 08/31/16 15:33 09/01/16 14:40 Tylenol PO 650 mg Q6HR PRN Administration Pain or Fever > 38C (100.4F) Diphenhydramine HCl 12.5 - 25 mg 08/25/16 16:56 09/02/16 03:23 Benadryl Inj IV 25 mg Q6H PRN Administration PRURITIS Docusate Sodium 250 - 500 mg 08/29/16 09:00 09/02/16 08:59 Colace 250mg Capsule PO Not Given DAILY DORIS Heparin Sodium (Porcine) 5,000 unit 08/29/16 09:00 09/02/16 09:07 SUBQ 5,000 unit Q12H DORIS Administration Metronidazole 50 mls @ 100 mls/hr 08/31/16 15:00 09/02/16 06:45 Flagyl 500 Mg/100 Ml IV 100 mls/hr Q8HR DORIS Administration Sodium Chloride 1,000 mls @ 0 mls/hr 09/01/16 12:53 09/02/16 03:23 Normal Saline 0.9% IV 30 mls/hr .Q0M DORIS Administration TKO Potassium Chloride 100 mls @ 100 mls/hr 09/02/16 09:00 09/02/16 11:15 Potassium Chloride IV 09/02/16 12:59 100 mls/hr Q1H DORIS Administration Ketorolac Tromethamine 15 mg 08/31/16 14:51 09/02/16 11:16 Toradol Inj IVP 09/05/16 14:50 15 mg Q6HR PRN Administration PAIN Magnesium Oxide 400 mg 08/31/16 14:00 09/02/16 08:57 Mag Ox PO 09/02/16 13:59 400 mg DAILYWM DORIS Administration Metoclopramide HCl 5 mg 08/31/16 15:00 09/02/16 06:44 Reglan Inj IVP 09/02/16 14:59 5 mg Q6HR DORIS Administration Multivitamins/Minerals 1 tab 08/29/16 08:00 09/02/16 08:57 Theragran M PO 1 tab DAILYWM DORIS Administration Nicotine 1 patch 08/24/16 09:00 09/02/16 08:59 Nicoderm TOP 1 patch DAILY DORIS Administration Ondansetron HCl 4 mg 08/30/16 14:39 09/02/16 11:16 Zofran Inj IVP 4 mg Q6HR PRN Administration Nausea / Vomiting Phenol/Menthol 1 sprays 08/24/16 00:25 08/25/16 22:03 Chloraseptic MM 1 sprays Q2HR PRN Administration Throat Pain Propranolol HCl 40 mg 08/29/16 09:00 09/02/16 08:57 Inderal PO 40 mg BID DORIS Administration Sodium Chloride 10 ml 08/24/16 00:25 09/01/16 12:25 Normal Saline Flush 0.9% IVP 10 ml PRN PRN Administration NEEDED PER PROVIDER ORDERS Sodium Chloride 10 ml 08/24/16 06:00 09/02/16 06:45 Normal Saline Flush 0.9% IVP Not Given Q8HR DORIS Throat Lozenges 1 lozenge 08/25/16 15:31 08/25/16 18:42 Cepacol MM 1 lozenge Q2HR PRN Administration Mouth Sore Pain - Physical Exam Wound/Incisions: positive: Healing well General Appearance: positive: No acute distress, Alert Eyes Bilateral: positive: EOMI ENT: positive: No signs of dehydration Neck: positive: No JVD Respiratory: positive: Breath sounds nml Cardiovascular: positive: Regular rate & rhythm Abdomen: positive: Tenderness (+Bs, mild distention, soft, no rebound or guarding, TTP minimally at incision site.) Back: positive: Nml inspection Skin: positive: Warm, Dry Extremities: positive: Nml appearance. negative: Calf tenderness, Joint swelling, Lan's sign/cords Neurologic/Psychiatric: positive: Oriented x3, CN's nml (2-12) Impression/Plan - Problem List Problem List: 51 yo female s/p Laparoscopy, segmental bowel resection POD#8 LAP APPY GABRIEL POD# 10 Overall condition improving, however still has leukocytosis, and diarrhea without fever. advance diet pain control will begin vancomycin 750 mg bid for suspected G+ infection unknown source Stop unasyn Continue flagyl for now Medical team on case continue all other medications
[2016-09-02] MEDS ORDERED: VANCOMYCIN INJ 0.75 GM in SODIUM CHLORIDE 0.9% 250 ML IV SCH (12:00)
[2016-09-02] MEDS ORDERED: MORPHINE 2 MG/ML SYRINGE IVP PRN (12:43)
[2016-09-02] MEDS ORDERED: PROCHLORPERAZINE 10 MG/2 ML VIAL IVP PRN (12:58)
[2016-09-02] MEDS ORDERED: SODIUM CHLORIDE 0.9% IV PRN (13:00)
[2016-09-02] MEDS ORDERED: PROCHLORPERAZINE IV PRN (13:00)
[2016-09-02] MEDS: VANCOMYCIN INJ 1 GM, VANCOMYCIN INJ 500 MG in SODIUM CHLORIDE 0.9% 500 ML IV SCH (13:41)
--- NOTE | 2016-09-02 14:32 | PROVIDER PROGRESS NOTE ---
Subjective - Prog Note Date Prog Note Date: 09/02/16 Prog Note Time: 14:29 - Subjective Pt reports feeling: No change (pt report multiple times loose stool) Objective - Vital Signs/Intake & Output Vital Signs: Vital Signs x48h Temp Pulse Resp BP Pulse Ox 09/02/16 08:00 37.2 C 83 16 156/96 H 95 Intake & Output: Intake & Output 08/30/16 08/31/16 09/01/16 09/02/16 23:59 23:59 23:59 23:59 Intake Total 2344 3185 3145 1739 Output Total 2250 1425 1350 Balance 94 1760 1795 1739 - Objective General Appearance: positive: No acute distress, Alert Eyes Bilateral: positive: Normal inspection, PERRL ENT: positive: ENT inspection nml Neck: positive: Nml inspection, Trachea midline Respiratory: positive: Chest non-tender, No respiratory distress, Breath sounds nml Cardiovascular: positive: Regular rate & rhythm, No murmur Peripheral Pulses: 2+ Radial (R), 2+ Radial (L), 2+ Dorsalis pedis (R), 2+ Dorsalis pedis (L) Abdomen: positive: Non-tender, Nml bowel sounds, No distention Back: positive: Nml inspection Skin: positive: Color nml, Warm Extremities: positive: Non-tender, Full ROM, Nml appearance Neurologic/Psychiatric: positive: Oriented x3, Motor nml, Sensation nml - Lab Results Fish Bones: 09/02/16 05:24 09/02/16 05:24 Other Labs: Lab Results x24hrs 09/02/16 09/02/16 Range/Units 05:24 05:24 WBC 15.7 H (4.8-10.8) x10^3/uL RBC 3.19 L (4.20-5.40) 10^6/uL Hgb 9.6 L (12.0-16.0) g/dL Hct 29.2 L (37.0-47.0) % MCV 91.3 (81.0-99.0) fL MCH 30.0 (27.0-31.0) pg MCHC 32.9 (32.0-36.0) g/dL RDW 13.7 (12.0-15.0) % Plt Count 382 (130-450) 10^3/uL MPV 8.2 (7.9-10.8) fL Neut # [employer]ERK PULLMAN Lymph # CAR CLERK PULLMAN [place] # CAR CLERK PULLMAN Eos # CAR CLERK PULLMAN Baso # CAR CLERK PULLMAN Absolute Nucleated RBC [employer] CLERK PULLMAN Total Counted 100 Band Neuts % (Manual) 3 (0 - 10) % Neutrophils # (Manual) 13.2 H (1.5-6.6) 10^3/uL Lymphocytes # (Manual) 1.4 L (1.5-3.5) 10^3/uL Monocytes # (Manual) 0.9 (0.0-1.0) 10^3/uL Eosinophils # (Manual) 0.2 (0-0.7) 10^3/uL Nucleated RBCs [employer]ERK PULLMAN Differential Comment MANUAL DIFFERENTIAL Platelet Estimate NORMAL (130-450,000) (NORMAL) RBC Morph Micro Appear NORMAL APPEARANCE (NORMAL) Sodium 139 (135-145) mmol/L Potassium 3.3 L (3.5-5.0) mmol/L Chloride 104 (101-111) mmol/L Carbon Dioxide 26 (21-32) mmol/L Anion Gap 9.0 (6-13) BUN 9 (6-20) mg/dL Creatinine 0.8 (0.4-1.0) mg/dL Estimated GFR (MDRD) 76 L (>89) Glucose 96 (70-100) mg/dL Calcium 8.4 L (8.5-10.3) mg/dL Phosphorus 3.2 (2.5-4.6) mg/dL Total Bilirubin 0.4 (0.2-1.0) mg/dL AST 26 (10-42) IU/L ALT 31 (10-60) IU/L Alkaline Phosphatase 110 (42-121) IU/L Total Protein 5.5 L (6.7-8.2) g/dL Albumin 2.2 L (3.2-5.5) g/dL Globulin 3.3 (2.1-4.2) g/dL Albumin/Globulin Ratio 0.7 L (1.0-2.2) Assessment/Plan - Problem List (1) Postoperative fever Impression: vital and lab reviewed. Pt has similar elevated WBC count and hypokalemia, and report loose stool. Discuss with attending surgeon, switch to new antibiotics, add potassium bag may add probiotics as well encourage pt eat more, walk as tolerated.
[2016-09-02] MEDS: SACCHAROMYCES BOULARDII 250 MG CAPSULE PO SCH (16:20)
[2016-09-02] MEDS ORDERED: LACTOB/S.THERMOPHL/BIFIDO CAPSULE PO SCH (17:00)
[2016-09-02] MEDS ORDERED: MIN OIL/DIMETHICON/COCONUT OIL 92 GM TUBE TOP ONE (19:16)
[2016-09-03] MEDS: ACETAMINOPHEN 325 MG TABLET PO PRN (00:21)
[2016-09-03] MEDS: VANCOMYCIN INJ 1 GM, VANCOMYCIN INJ 500 MG in SODIUM CHLORIDE 0.9% 500 ML IV SCH ×2 (01:13→14:03)
[2016-09-03 06:02] LABS: EOSINOPHILS # (AUTO) 0.2 10^3/uL (0.0-0.7); HGB - HEMOGLOBIN 9.5 g/dL (12.0-16.0); LYMPHOCYTES # (AUTO) 1.3 10^3/uL (1.5-3.5); MONOCYTES % (AUTO) 4.9 %
[2016-09-03] MEDS: SODIUM CHLORIDE FLUSH 0.9% 10 ML SYRINGE IVP SCH ×3 (06:09→21:38)
[2016-09-03 06:11] LABS: CREATININE 0.8 mg/dL (0.4-1.0); MAGNESIUM 1.9 mg/dL (1.7-2.8); POTASSIUM 3.5 mmol/L (3.5-5.0)
[2016-09-03] MEDS: metroNIDAZOLE 500 MG/100 ML 50 ML IV SCH ×3 (06:16→21:38)
[2016-09-03 06:17] LABS: BASOPHILS % (AUTO) 0.1 %; EOSINOPHILS % (AUTO) 1.6 %; HCT - HEMATOCRIT 28.2 % (37.0-47.0); LYMPHOCYTES % (AUTO) 8.3 %; MEAN CORPUSCULAR HEMOGLOBIN 30.5 pg (27.0-31.0); MEAN CORPUSCULAR HGB CONC 33.6 g/dL (32.0-36.0); MEAN PLATELET VOLUME 8.3 fL (7.9-10.8); MONOCYTES # (AUTO) 0.8 10^3/uL (0.0-1.0); NEUTROPHILS % (AUTO) 85.1 %; RED CELL DISTRIBUTION WIDTH 13.9 % (12.0-15.0); UNCORRECTED WHITE BLOOD COUNT 15.3 x10^3/uL; WHITE BLOOD COUNT 15.3 x10^3/uL (4.8-10.8)
--- NOTE | 2016-09-03 07:03 | PROVIDER PROGRESS NOTE ---
Subjective - General Admit Date: 08/24/16 Procedure Date: 08/25/16 Post Op Days: 9 Procedure Performed: Laparoscopy, segmental bowel resection POD#9 LAP APPY GABRIEL POD#11 - Review of Systems Wound/Incisions: positive: Healing well General: positive: No symptoms, Weakness HEENT: positive: No symptoms Pulmonary: positive: No symptoms Cardiovascular: positive: No symptoms Gastrointestinal: positive: Abdominal pain (Minimal Post op appropriate) Genitourinary: positive: No symptoms Musculoskeletal: positive: No symptoms Skin: positive: No symptoms Psychiatric: positive: No symptoms All Other Systems: positive: Reviewed and negative - Other Other Information/Narrative: patient seen at bedside. States feels better than yesterday. Diarrhea decreased. tolerating meals. Still with leukocytosis, Vancomycin started last night. NO other issues reported Objective - Patient Data Reviewed Vital Signs: Yes Vital Signs: Vital Signs x48h Temp Pulse Resp BP Pulse Ox 09/03/16 00:10 37.1 C 81 16 143/88 H 98 Weight: Weight 09/01/16 09/02/16 09/03/16 23:59 23:59 23:59 Weight (kg) 86.1 kg 86.9 kg Intake & Output: Intake and Output Totals x24h 09/01/16 09/02/16 09/03/16 23:59 23:59 23:59 Intake Total 3145 2807 1110 Output Total 1350 Balance 1795 2807 1110 - Lab Results Lab Results: 09/03/16 05:50 09/03/16 05:50 Other Lab Results: Lab Results x24hrs 09/03/16 09/03/16 09/03/16 Range/Units 05:50 05:50 05:50 WBC 15.3 H (4.8-10.8) x10^3/uL RBC 3.10 L (4.20-5.40) 10^6/uL Hgb 9.5 L (12.0-16.0) g/dL Hct 28.2 L (37.0-47.0) % MCV 91.0 (81.0-99.0) fL MCH 30.5 (27.0-31.0) pg MCHC 33.6 (32.0-36.0) g/dL RDW 13.9 (12.0-15.0) % Plt Count 380 (130-450) 10^3/uL MPV 8.3 (7.9-10.8) fL Neut # 13.0 H (1.5-6.6) 10^3/uL Lymph # 1.3 L (1.5-3.5) 10^3/uL [place] # 0.8 (0.0-1.0) 10^3/uL Eos # 0.2 (0.0-0.7) 10^3/uL Baso # 0.0 (0.0-0.1) 10^3/uL Absolute Nucleated RBC 0.01 x10^3/uL Nucleated RBCs 0.0 /100WBC Sodium 137 (135-145) mmol/L Potassium 3.5 (3.5-5.0) mmol/L Chloride 104 (101-111) mmol/L Carbon Dioxide 24 (21-32) mmol/L Anion Gap 9.0 (6-13) BUN 9 (6-20) mg/dL Creatinine 0.8 (0.4-1.0) mg/dL Estimated GFR (MDRD) 76 L (>89) Glucose 91 (70-100) mg/dL Lactic Acid 0.5 (0.5-2.2) mmol/L Calcium 8.0 L (8.5-10.3) mg/dL Phosphorus (2.5-4.6) mg/dL Magnesium 1.9 (1.7-2.8) mg/dL Total Bilirubin (0.2-1.0) mg/dL AST (10-42) IU/L ALT (10-60) IU/L Alkaline Phosphatase (42-121) IU/L Total Protein (6.7-8.2) g/dL Albumin (3.2-5.5) g/dL Globulin (2.1-4.2) g/dL Albumin/Globulin Ratio (1.0-2.2) 09/02/16 Range/Units 05:24 WBC (4.8-10.8) x10^3/uL RBC (4.20-5.40) 10^6/uL Hgb (12.0-16.0) g/dL Hct (37.0-47.0) % MCV (81.0-99.0) fL MCH (27.0-31.0) pg MCHC (32.0-36.0) g/dL RDW (12.0-15.0) % Plt Count (130-450) 10^3/uL MPV (7.9-10.8) fL Neut # (1.5-6.6) 10^3/uL Lymph # (1.5-3.5) 10^3/uL [place] # (0.0-1.0) 10^3/uL Eos # (0.0-0.7) 10^3/uL Baso # (0.0-0.1) 10^3/uL Absolute Nucleated RBC x10^3/uL Nucleated RBCs /100WBC Sodium 139 (135-145) mmol/L Potassium 3.3 L (3.5-5.0) mmol/L Chloride 104 (101-111) mmol/L Carbon Dioxide 26 (21-32) mmol/L Anion Gap 9.0 (6-13) BUN 9 (6-20) mg/dL Creatinine 0.8 (0.4-1.0) mg/dL Estimated GFR (MDRD) 76 L (>89) Glucose 96 (70-100) mg/dL Lactic Acid (0.5-2.2) mmol/L Calcium 8.4 L (8.5-10.3) mg/dL Phosphorus 3.2 (2.5-4.6) mg/dL Magnesium (1.7-2.8) mg/dL Total Bilirubin 0.4 (0.2-1.0) mg/dL AST 26 (10-42) IU/L ALT 31 (10-60) IU/L Alkaline Phosphatase 110 (42-121) IU/L Total Protein 5.5 L (6.7-8.2) g/dL Albumin 2.2 L (3.2-5.5) g/dL Globulin 3.3 (2.1-4.2) g/dL Albumin/Globulin Ratio 0.7 L (1.0-2.2) - Current Medications Current Medications: Current Medications Generic Name Dose Route Start Last Admin Trade Name Freq PRN Reason Stop Dose Admin Acetaminophen 650 mg 08/31/16 15:33 09/03/16 00:21 Tylenol PO 650 mg Q6HR PRN Administration Pain or Fever > 38C (100.4F) Diphenhydramine HCl 12.5 - 25 mg 08/25/16 16:56 09/02/16 03:23 Benadryl Inj IV 25 mg Q6H PRN Administration PRURITIS Docusate Sodium 250 - 500 mg 08/29/16 09:00 09/02/16 08:59 Colace 250mg Capsule PO Not Given DAILY DORIS Heparin Sodium (Porcine) 5,000 unit 08/29/16 09:00 09/02/16 21:33 SUBQ 5,000 unit Q12H DORIS Administration Metronidazole 50 mls @ 100 mls/hr 08/31/16 15:00 09/03/16 06:16 Flagyl 500 Mg/100 Ml IV 100 mls/hr Q8HR DORIS Administration Sodium Chloride 1,000 mls @ 0 mls/hr 09/01/16 12:53 09/02/16 03:23 Normal Saline 0.9% IV 30 mls/hr .Q0M DORIS Administration TKO Vancomycin HCl 1 gm/ 500 mls @ 250 mls/hr 09/02/16 13:00 09/03/16 01:13 Vancomycin HCl 500 mg/ Sodium IV 250 mls/hr Chloride Q12H DORIS Administration Ketorolac Tromethamine 15 mg 08/31/16 14:51 09/02/16 19:28 Toradol Inj IVP 09/05/16 14:50 15 mg Q6HR PRN Administration PAIN Multivitamins/Minerals 1 tab 08/29/16 08:00 09/02/16 08:57 Theragran M PO 1 tab DAILYWM DORIS Administration Nicotine 1 patch 08/24/16 09:00 09/02/16 08:59 Nicoderm TOP 1 patch DAILY DORIS Administration Ondansetron HCl 4 mg 08/30/16 14:39 09/02/16 11:16 Zofran Inj IVP 4 mg Q6HR PRN Administration Nausea / Vomiting Phenol/Menthol 1 sprays 08/24/16 00:25 08/25/16 22:03 Chloraseptic MM 1 sprays Q2HR PRN Administration Throat Pain Propranolol HCl 40 mg 08/29/16 09:00 09/02/16 21:38 Inderal PO 40 mg BID DORIS Administration Saccharomyces Boulardii 250 mg 09/02/16 17:00 09/02/16 16:20 Florastor PO 250 mg BIDWM DORIS Administration Sodium Chloride 10 ml 08/24/16 00:25 06/21/17 12:25 Normal Saline Flush 0.9% IVP 10 ml PRN PRN Administration NEEDED PER PROVIDER ORDERS Sodium Chloride 10 ml 08/24/16 06:00 09/03/16 06:09 Normal Saline Flush 0.9% IVP Not Given Q8HR DORIS Throat Lozenges 1 lozenge 08/25/16 15:31 08/25/16 18:42 Cepacol MM 1 lozenge Q2HR PRN Administration Mouth Sore Pain - Physical Exam Wound/Incisions: positive: Healing well General Appearance: positive: No acute distress Eyes Bilateral: positive: EOMI Respiratory: positive: Breath sounds nml Cardiovascular: positive: Regular rate & rhythm Abdomen: positive: Non-tender, Nml bowel sounds, No distention. negative: Tenderness, Guarding, Rebound Skin: positive: Warm, Dry Extremities: positive: Nml appearance. negative: Calf tenderness, Lan's sign/ cords Neurologic/Psychiatric: positive: Oriented x3, CN's nml (2-12) Impression/Plan - Problem List Problem List: 51 yo female s/p Laparoscopy, segmental bowel resection POD#9 LAP APPY GABRIEL POD# 11 Medical team on case Patient will need a short course of vancomycin before switching to oral ABP. Trough before 4th dose Electrolytes replacement PRN
[2016-09-03] MEDS: PROPRANOLOL 40 MG TABLET PO SCH ×2 (10:18→21:38)
[2016-09-03] MEDS: NICOTINE 14 MG PATCH TOP SCH (10:18)
[2016-09-03] MEDS: SACCHAROMYCES BOULARDII 250 MG CAPSULE PO SCH ×2 (10:20→18:08)
[2016-09-03] MEDS: MULTIVITAMIN W/MINERALS TABLET PO SCH (10:20)
[2016-09-03] MEDS: HEPARIN 5,000 UNIT/ML VIAL SUBQ SCH ×2 (10:20→21:33)
[2016-09-03] MEDS: DOCUSATE SODIUM 250 MG CAPSULE PO SCH (10:21)
--- NOTE | 2016-09-03 13:44 | PROVIDER PROGRESS NOTE ---
Subjective - Prog Note Date Prog Note Date: 09/03/16 Prog Note Time: 13:42 - Subjective Pt reports feeling: Improved (pt state she felt better today) Objective - Vital Signs/Intake & Output Vital Signs: Vital Signs x48h Temp Pulse Resp BP Pulse Ox 09/03/16 08:51 36.8 C 79 20 149/93 H 94 Intake & Output: Intake & Output 08/31/16 09/01/16 09/02/16 09/03/16 23:59 23:59 23:59 23:59 Intake Total 3185 3145 2807 1470 Output Total 1425 1350 Balance 1760 1795 2807 1470 - Objective General Appearance: positive: No acute distress, Alert Eyes Bilateral: positive: Normal inspection, PERRL ENT: positive: ENT inspection nml, No signs of dehydration Neck: positive: Nml inspection, Trachea midline Respiratory: positive: Chest non-tender, No respiratory distress, Breath sounds nml Cardiovascular: positive: Regular rate & rhythm, No murmur Peripheral Pulses: 2+ Radial (R), 2+ Radial (L), 2+ Dorsalis pedis (R), 2+ Dorsalis pedis (L) Abdomen: positive: Non-tender, Nml bowel sounds, No distention Back: positive: Nml inspection Skin: positive: Color nml, Warm Extremities: positive: Non-tender, Full ROM, Nml appearance Neurologic/Psychiatric: positive: Oriented x3, CN's nml (2-12), Motor nml, Sensation nml - Lab Results Fish Bones: 09/03/16 05:50 09/03/16 05:50 Other Labs: Lab Results x24hrs 09/03/16 09/03/16 09/03/16 Range/Units 05:50 05:50 05:50 WBC 15.3 H (4.8-10.8) x10^3/uL RBC 3.10 L (4.20-5.40) 10^6/uL Hgb 9.5 L (12.0-16.0) g/dL Hct 28.2 L (37.0-47.0) % MCV 91.0 (81.0-99.0) fL MCH 30.5 (27.0-31.0) pg MCHC 33.6 (32.0-36.0) g/dL RDW 13.9 (12.0-15.0) % Plt Count 380 (130-450) 10^3/uL MPV 8.3 (7.9-10.8) fL Neut # 13.0 H (1.5-6.6) 10^3/uL Lymph # 1.3 L (1.5-3.5) 10^3/uL [place] # 0.8 (0.0-1.0) 10^3/uL Eos # 0.2 (0.0-0.7) 10^3/uL Baso # 0.0 (0.0-0.1) 10^3/uL Absolute Nucleated RBC 0.01 x10^3/uL Nucleated RBCs 0.0 /100WBC Sodium 137 (135-145) mmol/L Potassium 3.5 (3.5-5.0) mmol/L Chloride 104 (101-111) mmol/L Carbon Dioxide 24 (21-32) mmol/L Anion Gap 9.0 (6-13) BUN 9 (6-20) mg/dL Creatinine 0.8 (0.4-1.0) mg/dL Estimated GFR (MDRD) 76 L (>89) Glucose 91 (70-100) mg/dL Lactic Acid 0.5 (0.5-2.2) mmol/L Calcium 8.0 L (8.5-10.3) mg/dL Magnesium 1.9 (1.7-2.8) mg/dL Assessment/Plan - Problem List (1) Postoperative fever Impression: pt report she felt better today. Vital and lab reviewed. will follow up
[2016-09-03] MEDS: KETOROLAC 15 MG/ML VIAL IVP PRN ×2 (14:09→21:45)
[2016-09-03] MEDS: diphenhydrAMINE INJ 50 MG/ML VIAL IV PRN (21:45)
[2016-09-04] MEDS: VANCOMYCIN INJ 1 GM, VANCOMYCIN INJ 500 MG in SODIUM CHLORIDE 0.9% 500 ML IV SCH (01:16)
[2016-09-04] MEDS: ACETAMINOPHEN 325 MG TABLET PO PRN (05:40)
[2016-09-04] MEDS: metroNIDAZOLE 500 MG/100 ML 50 ML IV SCH (05:41)
[2016-09-04] MEDS: SODIUM CHLORIDE FLUSH 0.9% 10 ML SYRINGE IVP SCH (05:41)
[2016-09-04 05:54] LABS: BASOPHILS # (AUTO) 0.2 10^3/uL (0.0-0.1); EOSINOPHILS # (AUTO) 0.3 10^3/uL (0.0-0.7); EOSINOPHILS % (AUTO) 1.7 %; HCT - HEMATOCRIT 29.5 % (37.0-47.0); HGB - HEMOGLOBIN 9.7 g/dL (12.0-16.0); LYMPHOCYTES % (AUTO) 11.7 %; MEAN CORPUSCULAR HEMOGLOBIN 29.9 pg (27.0-31.0); MEAN CORPUSCULAR HGB CONC 32.9 g/dL (32.0-36.0); MEAN PLATELET VOLUME 8.2 fL (7.9-10.8); MONOCYTES # (AUTO) 1.1 10^3/uL (0.0-1.0); MONOCYTES % (AUTO) 6.5 %; NEUTROPHILS # (AUTO) 13.6 10^3/uL (1.5-6.6); NEUTROPHILS % (AUTO) 79.1 %; RED BLOOD COUNT 3.24 10^6/uL (4.20-5.40); RED CELL DISTRIBUTION WIDTH 13.8 % (12.0-15.0); UNCORRECTED WHITE BLOOD COUNT 17.2 x10^3/uL; WHITE BLOOD COUNT 17.2 x10^3/uL (4.8-10.8)
[2016-09-04 06:04] LABS: CALCIUM 8.3 mg/dL (8.5-10.3); CREATININE 0.9 mg/dL (0.4-1.0); POTASSIUM 3.3 mmol/L (3.5-5.0)
[2016-09-04 08:06] VITALS: BP 136/87
--- NOTE | 2016-09-04 08:50 | Discharge Plan ---
Discharge Plan Disposition: 01 Home, Self Care Condition: Good Diet: Regular Activity Restrictions: Additional Comments (no lifting greater than 10lbs; no strenuous activity for 4wks. If driving more than 2hr distance, must stop every hour and walk around for 10min.) Shower Restrictions: Yes (pat dry) Driving Restrictions: Yes (no driving while taking narcotic pain meds) Instruction Topics: Acetaminophen Oxycodone tablets, Appendectomy After Additional Instructions or Follow Up instructions: Pt is feeling much better and is ready for discharge. Tolerating regular diet and moving bowels. No nausea. Ambulating in halls. Incisions heaing well, lexie will be d/cd prior to discharge. No Smoking: If you smoke, Please STOP! Call for help. Follow-up with: Barbara Andrews ARNP [Primary Care Provider] - Robbie Humphrey DO [Provider Admit Priv/Credential] -
[2016-09-04] MEDS: MULTIVITAMIN W/MINERALS TABLET PO SCH (08:55)
[2016-09-04] MEDS: SACCHAROMYCES BOULARDII 250 MG CAPSULE PO SCH (08:56)
[2016-09-04] MEDS: DOCUSATE SODIUM 250 MG CAPSULE PO SCH (08:56)
[2016-09-04] MEDS: HEPARIN 5,000 UNIT/ML VIAL SUBQ SCH (08:57)
[2016-09-04] MEDS: PROPRANOLOL 40 MG TABLET PO SCH (08:58)
[2016-09-04] MEDS: NICOTINE 14 MG PATCH TOP SCH (08:58)
[2016-09-04] MEDS ORDERED: POTASSIUM CHLORIDE INJ 40 MEQ in SODIUM CHLORIDE 0.9% 480 ML IV ONE (09:12)
--- NOTE | 2016-09-04 09:24 | PROVIDER PROGRESS NOTE ---
Subjective - Prog Note Date Prog Note Date: 09/04/16 Prog Note Time: 09:21 - Subjective Pt reports feeling: Improved (pt state she feel great and ready to go to home) Objective - Vital Signs/Intake & Output Vital Signs: Vital Signs x48h Temp Pulse Resp BP Pulse Ox 09/04/16 08:05 36.7 C 71 14 136/87 H 97 Intake & Output: Intake & Output 09/01/16 09/02/16 09/03/16 09/04/16 23:59 23:59 23:59 23:59 Intake Total 3145 2807 3866 Output Total 1350 Balance 1795 2807 3866 - Objective General Appearance: positive: No acute distress, Alert Eyes Bilateral: positive: Normal inspection, PERRL ENT: positive: ENT inspection nml, No signs of dehydration Neck: positive: Nml inspection, Trachea midline Respiratory: positive: Chest non-tender, No respiratory distress, Breath sounds nml Cardiovascular: positive: Regular rate & rhythm, No murmur Peripheral Pulses: 2+ Radial (R), 2+ Radial (L), 2+ Dorsalis pedis (R), 2+ Dorsalis pedis (L) Abdomen: positive: Non-tender, Nml bowel sounds, No distention Back: positive: Nml inspection Skin: positive: Color nml, Warm Extremities: positive: Non-tender, Full ROM, Nml appearance Neurologic/Psychiatric: positive: Oriented x3, CN's nml (2-12), Motor nml, Sensation nml - Lab Results Fish Bones: 09/04/16 05:38 09/04/16 05:38 Other Labs: Lab Results x24hrs 09/04/16 09/04/16 09/04/16 Range/Units 05:38 05:38 05:38 WBC 17.2 H (4.8-10.8) x10^3/uL RBC 3.24 L (4.20-5.40) 10^6/uL Hgb 9.7 L (12.0-16.0) g/dL Hct 29.5 L (37.0-47.0) % MCV 91.0 (81.0-99.0) fL MCH 29.9 (27.0-31.0) pg MCHC 32.9 (32.0-36.0) g/dL RDW 13.8 (12.0-15.0) % Plt Count 447 (130-450) 10^3/uL MPV 8.2 (7.9-10.8) fL Neut # 13.6 H (1.5-6.6) 10^3/uL Lymph # 2.0 (1.5-3.5) 10^3/uL [place] # 1.1 H (0.0-1.0) 10^3/uL Eos # 0.3 (0.0-0.7) 10^3/uL Baso # 0.2 H (0.0-0.1) 10^3/uL Absolute Nucleated RBC 0.01 x10^3/uL Nucleated RBCs 0.0 /100WBC Sodium 140 (135-145) mmol/L Potassium 3.3 L (3.5-5.0) mmol/L Chloride 105 (101-111) mmol/L Carbon Dioxide 26 (21-32) mmol/L Anion Gap 9.0 (6-13) BUN 7 (6-20) mg/dL Creatinine 0.9 (0.4-1.0) mg/dL Estimated GFR (MDRD) 67 L (>89) Glucose 101 H (70-100) mg/dL Calcium 8.3 L (8.5-10.3) mg/dL Phosphorus 3.4 (2.5-4.6) mg/dL Last Dose Date Last Dose Time Vancomycin Trough (5.0-15.0) ug/mL 09/04/16 Range/Units 00:40 WBC (4.8-10.8) x10^3/uL RBC (4.20-5.40) 10^6/uL Hgb (12.0-16.0) g/dL Hct (37.0-47.0) % MCV (81.0-99.0) fL MCH (27.0-31.0) pg MCHC (32.0-36.0) g/dL RDW (12.0-15.0) % Plt Count (130-450) 10^3/uL MPV (7.9-10.8) fL Neut # (1.5-6.6) 10^3/uL Lymph # (1.5-3.5) 10^3/uL [place] # (0.0-1.0) 10^3/uL Eos # (0.0-0.7) 10^3/uL Baso # (0.0-0.1) 10^3/uL Absolute Nucleated RBC x10^3/uL Nucleated RBCs /100WBC Sodium (135-145) mmol/L Potassium (3.5-5.0) mmol/L Chloride (101-111) mmol/L Carbon Dioxide (21-32) mmol/L Anion Gap (6-13) BUN (6-20) mg/dL Creatinine (0.4-1.0) mg/dL Estimated GFR (MDRD) (>89) Glucose (70-100) mg/dL Calcium (8.5-10.3) mg/dL Phosphorus (2.5-4.6) mg/dL Last Dose Date 09-03-16 Last Dose Time 1300 Vancomycin Trough 18.8 H (5.0-15.0) ug/mL Assessment/Plan - Problem List (1) Postoperative fever Impression: pt's vital and lab review. order potassium. Pt state she feel great and ready to go home. Surgeon plan D/C pt today
[2016-09-04] MEDS ORDERED: POTASSIUM CHLORIDE 20 MEQ TABLET PO ONE (09:55)
== END 2016-09-04 13:45 | disposition home or self-care (01) | DRG 329 ==
LOC: ED 17:16 → SDS 19:35 → MS 08-24 00:25
PROVIDERS: ADMIT Surgery; ATTEND Surgery
PROC: 0DNS4ZZ (ICD-10-PCS; 2016-08-23)
PROC: 0DN84ZZ Release Small Intestine, Percutaneous Endoscopic Approach (ICD-10-PCS; 2016-08-23)
PROC: 0DTJ4ZZ Resection of Appendix, Percutaneous Endoscopic Approach (ICD-10-PCS; principal; 2016-08-23 21:00)
PROC: 0DB80ZZ Excision of Small Intestine, Open Approach (ICD-10-PCS; 2016-08-25)
PROC: 0DJD4ZZ Inspection of Lower Intestinal Tract, Percutaneous Endoscopic Approach (ICD-10-PCS; 2016-08-25)
DX: K35.80 Unspecified acute appendicitis (principal); J18.9 Pneumonia, unspecified organism; K63.1 Perforation of intestine (nontraumatic); K56.5 Intestinal adhesions [bands] with obstruction (postinfection); N17.9 Acute kidney failure, unspecified; K56.0 Paralytic ileus; I10 Essential (primary) hypertension; K21.9 Gastro-esophageal reflux disease without esophagitis; G89.29 Other chronic pain; M25.552 Pain in left hip; S79.912S Unspecified injury of left hip, sequela; R31.29 Other microscopic hematuria; K59.00 Constipation, unspecified; E87.6 Hypokalemia; E88.09 Other disorders of plasma-protein metabolism, not elsewhere classified; E86.9 Volume depletion, unspecified; Z53.31 Laparoscopic surgical procedure converted to open procedure; Z90.49 Acquired absence of other specified parts of digestive tract; Z90.710 Acquired absence of both cervix and uterus; Z90.79 Acquired absence of other genital organ(s); Z90.722 Acquired absence of ovaries, bilateral; Z79.1 Long term (current) use of non-steroidal anti-inflammatories (NSAID); Z72.0 Tobacco use
CPT/HCPCS: 36415; 71020; 71275; 74020; 74176; 74177; 74250; 80048; 80053; 80061; 81001; 81599; 82150; 82247; 82270; 83605; 83690; 83735; 84100; 84134; 84484; 85025; 85610; 85730; 86850; 86900; 86901; 87040; 87086; 87493; 88304; 88307; 93005; 93970; 96361; 96374; 96375; 96376; 99283; 99284

== ENCOUNTER 2016-09-10 09:46 | Outpatient (CLI) | payer OTHER ==
[2016-09-10 10:10] LABS: BASOPHILS # (AUTO) 0.2 10^3/uL (0.0-0.1); BASOPHILS % (AUTO) 1.3 %; EOSINOPHILS # (AUTO) 0.4 10^3/uL (0.0-0.7); EOSINOPHILS % (AUTO) 2.3 %; HCT - HEMATOCRIT 36.8 % (37.0-47.0); HGB - HEMOGLOBIN 12.1 g/dL (12.0-16.0); LYMPHOCYTES # (AUTO) 2.3 10^3/uL (1.5-3.5); LYMPHOCYTES % (AUTO) 14.2 %; MEAN CORPUSCULAR HEMOGLOBIN 29.5 pg (27.0-31.0); MEAN CORPUSCULAR HGB CONC 32.9 g/dL (32.0-36.0); MEAN CORPUSCULAR VOLUME 89.7 fL (81.0-99.0); MEAN PLATELET VOLUME 7.9 fL (7.9-10.8); MONOCYTES # (AUTO) 1.1 10^3/uL (0.0-1.0); MONOCYTES % (AUTO) 6.6 %; NEUTROPHILS # (AUTO) 12.2 10^3/uL (1.5-6.6); NEUTROPHILS % (AUTO) 75.6 %; RED CELL DISTRIBUTION WIDTH 13.8 % (12.0-15.0); UNCORRECTED WHITE BLOOD COUNT 16.1 x10^3/uL; WHITE BLOOD COUNT 16.1 x10^3/uL (4.8-10.8)
== END 2016-09-10 09:47 | disposition home or self-care (01) ==
LOC: LAB 09:46
PROVIDERS: ATTEND Surgery
DX: Z90.49 Acquired absence of other specified parts of digestive tract (principal)
CPT/HCPCS: 36415; 85025

== ENCOUNTER 2016-10-02 09:42 | Outpatient (CLI) | payer OTHER ==
[2016-10-02] MEDS ORDERED: IOPAMIDOL-300 100 ML VIAL IVP ONE (11:02)
--- NOTE | 2016-10-03 15:38 | CT Report ---
EXAM: CT ABDOMEN AND PELVIS EXAM DATE: 10/02/2016 11:07 a.m. CLINICAL HISTORY: Intra-abdominal abscess. COMPARISONS: 08/27/2016. TECHNIQUE: Routine helical CT imaging was performed through the abdomen and pelvis. IV contrast: 100 mL Isovue-300. Enteric contrast: Yes. Reconstructions: Coronal and sagittal. In accordance with CT protocol optimization, one or more of the following dose reduction techniques w ere utilized for this exam: automated exposure control, adjustment of mA and/or KV based on patient s ize, or use of iterative reconstructive technique. FINDINGS: Lung Bases: Unremarkable. Liver: Normal. No masses. Gallbladder/Bile Ducts: Status post cholecystectomy, unremarkable. Spleen: Normal. Pancreas: Normal. Adrenal Glands: Normal. Kidneys: No stone, masses or hydronephrosis. Peritoneal Cavity/Bowel: 1. There is a fluid collection with hyperenhanced wall containing small septation in the right latera l portion of the anterior lower abdomen just abutting the anterior aspect of the bladder dome, 4.4 x 2.8 x 3 cm. 2. The prior fluid collection in the cul-de-sac is significantly decreased, however, there is residua l fluid collection with new hyperenhanced wall just anterior to the proximal rectum, abutting the pos terior wall of the bladder, 1.7 x 1.8 x 1 cm. 3. Interval removal of the pelvic draining catheters. No free fluid, free air or adenopathy. No graciela s or acute inflammatory process. The appendix is well visualized and normal. Pelvic Organs: The uterus is again absent. The bladder and rectum are within normal limits. Vasculature: No aneurysms or other significant abnormality. Bones: No significant abnormality. Other: The prior multiple small air foci in the prior retroperitoneum are no longer seen. Anterior lo wer abdominal wall incision scar without focal collection or abscess is seen. IMPRESSION: Two new small moderate-sized complex fluid collections with hyperenhanced wall, compatible with absce ss abutting the anterior aspect of the dome of the bladder and posterior wall of the bladder, respect ively. Consultation with interventional radiology for drainage of the largest one is recommended. [facility] Referring Provider Line: [phone] SITE ID: [id number]
== END 2016-10-02 09:43 | disposition home or self-care (01) ==
LOC: DI 09:42
PROVIDERS: ATTEND Surgery
DX: R18.8 Other ascites (principal); Z90.49 Acquired absence of other specified parts of digestive tract
CPT/HCPCS: 74177; Q9967